=== PATIENT | male | born 1940 | race Asian ===

== ENCOUNTER 2021-08-20 02:13 | Outpatient (CLI) | payer MEDICARE, OTHER | END 2021-08-20 02:14 | disposition critical access hospital (66) | LOC: EMS 02:13 | DX: R10.10 Upper abdominal pain, unspecified (principal); R11.10 Vomiting, unspecified | CPT/HCPCS: A0425; A0429 ==

== ENCOUNTER 2021-08-20 02:29 | Inpatient (IN) | payer MEDICARE, OTHER ==
[2021-08-20] MEDS ORDERED: SODIUM CHLORIDE 0.9% 1,000 ML IV STA (02:36)
[2021-08-20] MEDS ORDERED: KETOROLAC 15 MG/ML VIAL IVP STA (02:36)
[2021-08-20] MEDS ORDERED: MORPHINE 10 MG/ML VIAL IVP STA (02:36)
[2021-08-20] MEDS ORDERED: ONDANSETRON 4 MG/2 ML VIAL IVP STA (02:36)
--- NOTE | 2021-08-20 02:38 | ED Physician Documentation ---
PD HPI ABD PAIN - Stated complaint Stated Complaint: ABD PAIN - History obtained from History obtained from: Patient, EMS - History of Present Illness Timing - onset: How many hours ago (about 8 hours ago (just after dinner)), Today Timing - duration: Hours (8) Timing - details: Gradual onset, Still present, Constant Quality: Cramping, Aching, Pain Location: All over / everywhere, Periumbilical Radiation: No: Lower back Improved by: Laying still. No: Vomiting Worsened by: Moving, Palpation Associated symptoms: Nausea, Vomiting (several times without noted blood.). No: Fever, Hematemesis, Diarrhea, Constipation (did not have BM since onset of symptoms), Dysuria Similar symptoms before: Has not had sx before Recently seen: Not recently seen Review of Systems Constitutional: denies: Fever, Chills Nose: denies: Rhinorrhea / runny nose, Congestion Throat: denies: Sore throat Cardiac: denies: Chest pain / pressure, Palpitations Respiratory: denies: Cough GI: reports: Abdominal Pain, Nausea, Vomiting. denies: Constipation, Diarrhea, Hematemesis : denies: Dysuria, Frequency Skin: denies: Rash, Lesions Musculoskeletal: denies: Neck pain, Back pain Neurologic: reports: Generalized weakness. denies: Near syncope, Altered mental status, Headache Endocrine: denies: Weight loss Immunocompromised: denies: Immunocompromised PD PAST MEDICAL HISTORY - Past Medical History Cardiovascular: Hypertension, High cholesterol, Atrial fibrillation Respiratory: None Neuro: None Endocrine/Autoimmune: None GI: GERD : None, Other (prior known kidney mass that has been biopsied at [facility] (?) with negative for neoplasm. f/u at [place] showed no increase in size. ) - Past Surgical History General: Cholecystectomy, Gastric surgery - Present Medications Home Medications: Ambulatory Orders Medication Instructions Recorded Confirmed Aspirin Chewable [[facility] Sandoval 81 mg PO DAILY 08/20/21 08/20/21 Aspirin] Atorvastatin [Lipitor] 20 mg PO DAILY 08/20/21 08/20/21 Lisinopril [Zestril] 20 mg PO DAILY 08/20/21 08/20/21 Pantoprazole [Protonix] 40 mg PO BID 08/20/21 08/20/21 - Allergies Allergies/Adverse Reactions: Allergies Allergy/AdvReac Type Severity Reaction Status Date / Time No Known Drug Allergies Allergy Verified 08/20/21 02:39 - Family History Family history: reports: Non contributory PD ED PE NORMAL - Vitals Vital signs reviewed: Yes - General General: Alert and oriented X 3, Well developed/nourished, Other (appears in mild discomfort at ER arrival. ) - HEENT HEENT: Pharynx benign - Neck Neck: Supple, no meningeal sign, No adenopathy - Cardiac Cardiac: RRR, No murmur - Respiratory Respiratory: No respiratory distress, Clear bilaterally - Abdomen Abdomen: Soft, Non distended, No organomegaly, Other (tender lower abd both left and right, without percussion nor rebound tenderness. ). No: Normal bowel sounds (decreased) - Male Male : Deferred - Rectal Rectal: Deferred - Back Back: No CVA TTP - Derm Derm: Normal color, Warm and dry - Extremities Extremities: No tenderness to palpate, No edema, No calf tenderness / cord - Neuro Neuro: Alert and oriented X 3, No motor deficit, Normal speech Results - Vitals Vitals: Vital Signs - 24 hr 08/20/21 08/20/21 08/20/21 02:36 02:38 03:30 Temperature 36.4 C L Heart Rate 62 63 62 Respiratory 16 16 16 Rate Blood Pressure 225/85 H 225/85 H 188/58 H O2 Saturation 97 96 94 08/20/21 08/20/21 03:55 04:16 Temperature Heart Rate 60 58 L Respiratory 15 15 Rate Blood Pressure 158/58 H O2 Saturation 97 98 Oxygen O2 Source Room air - Labs Labs: Laboratory Tests 08/20/21 08/20/21 08/20/21 02:39 02:39 02:45 WBC 9.2 RBC 4.81 Hgb 13.8 L Hct 44.2 MCV 91.9 MCH 28.7 MCHC 31.2 L RDW 13.9 Plt Count 261 MPV 9.2 Neut # (Auto) 8.6 H Lymph # (Auto) 0.3 L Pratt # (Auto) 0.2 Eos # (Auto) 0.0 Baso # (Auto) 0.0 Absolute Nucleated RBC 0.00 Nucleated RBC % 0.0 Sodium 142 Potassium 4.3 Chloride 101 Carbon Dioxide 27 Anion Gap 14.0 H BUN 25 H Creatinine 1.3 H Estimated GFR (MDRD) 53 L Glucose 208 H Lactic Acid 2.0 Calcium 10.2 Total Bilirubin 0.9 AST 29 ALT 23 Alkaline Phosphatase 85 Total Protein 8.3 H Albumin 4.9 Globulin 3.4 Albumin/Globulin Ratio 1.4 Lipase 32 Urine Color Urine Clarity Urine pH Ur Specific [place] Urine Protein Urine Glucose (UA) Urine Ketones Urine Occult Blood Urine Nitrite Urine Bilirubin Urine Urobilinogen Ur Leukocyte Esterase Urine RBC Urine WBC Ur Squamous Epith Cells Urine Bacteria Urine Casts Urine Mucus Ur Microscopic Review Urine Culture Comments 08/20/21 04:00 WBC RBC Hgb Hct MCV MCH MCHC RDW Plt Count MPV Neut # (Auto) Lymph # (Auto) Pratt # (Auto) Eos # (Auto) Baso # (Auto) Absolute Nucleated RBC Nucleated RBC % Sodium Potassium Chloride Carbon Dioxide Anion Gap BUN Creatinine Estimated GFR (MDRD) Glucose Lactic Acid Calcium Total Bilirubin AST ALT Alkaline Phosphatase Total Protein Albumin Globulin Albumin/Globulin Ratio Lipase Urine Color YELLOW Urine Clarity CLEAR Urine pH 6.0 Ur Specific [place] 1.025 Urine Protein 30 H Urine Glucose (UA) 100 H Urine Ketones TRACE Urine Occult Blood SMALL H Urine Nitrite NEGATIVE Urine Bilirubin NEGATIVE Urine Urobilinogen 0.2 (NORMAL) Ur Leukocyte Esterase NEGATIVE Urine RBC 0-5 Urine WBC 0-3 Ur Squamous Epith Cells RARE Squamous Urine Bacteria Rare Urine Casts 0-2 Hyaline Casts Urine Mucus Few Strands Ur Microscopic Review INDICATED Urine Culture Comments NOT INDICATED - Rads (name of study) abd/pelvic CT Radiology: Prelim report reviewed, See rad report PD MEDICAL DECISION MAKING - ED course Complexity details: reviewed results, re-evaluated patient, considered differential (mid to lower abd pain abruptly with vomiting. Consider bowel obstruction, diverticulitis, ischemic intestines, aortic process, etc. ), d/w patient Departure - Departure Disposition: ED Place in Observation Clinical Impression: Small bowel obstruction, High blood pressure Abdominal pain Qualifiers: Abdominal location: generalized Qualified Code(s): R10.84 - Generalized abdominal pain Vomiting Qualifiers: Vomiting type: unspecified Vomiting Intractability: non-intractable Nausea presence: with nausea Qualified Code(s): R11.2 - Nausea with vomiting, unspecified Condition: Stable Record reviewed to determine appropriate education?: Yes
[2021-08-20 02:45] LABS: BASOPHILS % (AUTO) 0.3 %; HCT - HEMATOCRIT 44.2 % (42.0-52.0); HGB - HEMOGLOBIN 13.8 g/dL (14.0-18.0); LYMPHOCYTES # (AUTO) 0.3 10^3/uL (1.5-3.5); LYMPHOCYTES % (AUTO) 3.2 %; MEAN CORPUSCULAR HEMOGLOBIN 28.7 pg (27.0-31.0); MEAN CORPUSCULAR HGB CONC 31.2 g/dL (32.0-36.0); MEAN CORPUSCULAR VOLUME 91.9 fL (80.0-94.0); MEAN PLATELET VOLUME 9.2 fL (7.4-11.4); MONOCYTES # (AUTO) 0.2 10^3/uL (0.0-1.0); MONOCYTES % (AUTO) 2.5 %; NEUTROPHILS # (AUTO) 8.6 10^3/uL (1.5-6.6); NEUTROPHILS % (AUTO) 93.6 %; PLT - PLATELET COUNT 261 10^3/uL (130-450); RED BLOOD COUNT 4.81 10^6/uL (4.70-6.10); RED CELL DISTRIBUTION WIDTH 13.9 % (12.0-15.0); WHITE BLOOD COUNT 9.2 x10^3/uL (4.8-10.8)
[2021-08-20] MEDS ORDERED: IOVERSOL 320 100 ML VIAL IVP ONE ×2 (02:47→03:25)
[2021-08-20 02:59] LABS: ALBUMIN 4.9 g/dL (3.2-5.5); ALBUMIN/GLOBULIN RATIO 1.4 (1.0-2.2); BILIRUBIN,TOTAL 0.9 mg/dL (0.2-1.0); CALCIUM 10.2 mg/dL (8.5-10.3); CREATININE 1.3 mg/dL (0.6-1.2); POTASSIUM 4.3 mmol/L (3.5-5.0); TOTAL PROTEIN 8.3 g/dL (6.7-8.2)
[2021-08-20 04:10] LABS: BILIRUBIN,URINE NEGATIVE (NEGATIVE); GLUCOSE, URINE (UA) 100 mg/dL (NEGATIVE); KETONES,URINE (UA) TRACE mg/dL (NEGATIVE); LEUKOCYTE ESTERASE, URINE NEGATIVE (NEGATIVE); NITRITE,URINE NEGATIVE (NEGATIVE); OCCULT BLOOD,URINE SMALL (NEGATIVE); PROTEIN,URINE 30 mg/dL (NEGATIVE); UROBILINOGEN,URINE 0.2 (NORMAL) E.U./dL (NORMAL)
[2021-08-20 04:11] LABS: CLARITY,URINE CLEAR (CLEAR)
[2021-08-20 04:16] LABS: BACTERIA,URINE Rare /HPF (None Seen); CASTS, URINE 0-2 Hyaline Casts /LPF; MUCUS,URINE Few Strands; RBC,URINE 0-5 /HPF (0-5); SQUAMOUS EPITHELIAL CELL,UR RARE Squamous (<= Few); WBC,URINE 0-3 /HPF (0-3)
[2021-08-20 05:28] LABS: CORONAVIRUS 229E-RESP PCR NOT DETECTED; CORONAVIRUS HKU1-RESP PCR NOT DETECTED; CORONAVIRUS NL63-RESP PCR NOT DETECTED; CORONAVIRUS OC43-RESP PCR NOT DETECTED; HUMAN METAPNEUMOVIRUS NOT DETECTED; INFLUENZA A- RESP PCR PANEL NOT DETECTED; RHINOVIRUS/ENTEROVIRUS NOT DETECTED; SARS-CoV-2 -RESP PCR PANEL NOT DETECTED
[2021-08-20 05:29] LABS: B. PARAPERTUSSIS- RESP PCR PAN NOT DETECTED; B. PERTUSSIS- RESP PCR PANEL NOT DETECTED; C. PNEUMONIAE- RESP PCR PANEL NOT DETECTED; INFLUENZA B - RESP PCR PANEL NOT DETECTED; M. PNEUMONIAE- RESP PCR PANEL NOT DETECTED; PARAINFLUENZA VIRUS 1 NOT DETECTED; PARAINFLUENZA VIRUS 2 NOT DETECTED; PARAINFLUENZA VIRUS 3 NOT DETECTED; PARAINFLUENZA VIRUS 4 NOT DETECTED; RSV- RESP PCR PANEL NOT DETECTED
--- NOTE | 2021-08-20 05:41 | HISTORY & PHYSICAL EXAMINATION ---
Chief Complaint - Chief Complaint Chief Complaint: abdominal pain History of Present Illness - Admitted From Admitted From:: [facility] ED - History Obtained From Records Reviewed: yes History obtained from: patient - History of Present Illness HPI Comment/Other: Patient is an 81-year-old male who presented to the ED today with abdominal pain. This started after dinner yesterday. He had nausea and vomiting at onset however his abdominal pain currently has subsided. In the ED work-up included a CT abdomen pelvis which showed small bowel obstruction. She was presented for admission for further management. At bedside he is resting comfortably. He denies chest pain, dyspnea, abdominal pain, nausea, vomiting, fever or chills. Dr. Bernadine Lockwood with general surgery was consulted by the ED physician. Patient recently moved to [facility] from [place]. He resides at [facility]. He moved to be closer to his son and his [id number]. History - Past Medical History Cardiovascular: reports: Hypertension, High cholesterol, Coronary artery disea se, Atrial fibrillation Respiratory: reports: None Neuro: reports: None Endocrine/Autoimmune: reports: None GI: reports: GERD : reports: None, Other (prior known kidney mass that has been biopsied at [facility] (?) with negative for neoplasm. f/u at [place] showed no increase in size. ) Musculoskeletal: reports: Osteoarthritis MRSA Hx?: No - Past Surgical History General: reports: Cholecystectomy, Gastric surgery - Family & Social History Family History Comment/Other: His mother had diabetes and in her 50s. His sister had 1 kidney resected. Reason unknown. Social History Notes: Patient does not consume alcohol, tobacco products or recreational substances. - POLST Patient has POLST: No POLST Status: Full Code Meds/Allgy - Home Medications Home Medications: Ambulatory Orders Medication Instructions Recorded Confirmed Aspirin Chewable [St Sandoval 81 mg PO DAILY 08/20/21 08/20/21 Aspirin] Atorvastatin [Lipitor] 20 mg PO DAILY 08/20/21 08/20/21 Lisinopril [Zestril] 20 mg PO DAILY 08/20/21 08/20/21 Pantoprazole [Protonix] 40 mg PO BID 08/20/21 08/20/21 - Allergies Allergies/Adverse Reactions: Allergies Allergy/AdvReac Type Severity Reaction Status Date / Time No Known Drug Allergies Allergy Verified 08/20/21 02:39 Review of Systems - Constitutional Constitutional: denies: Fatigue, Fever, Chills - Eyes Eyes: denies: Pain - Ears, Nose & Throat Ears, Nose & Throat: denies: Ear pain, Sore throat - Cardiovascular Cariovascular: denies: Irregular heart rate, Chest pain, Edema, Lightheadedness, Syncope - Gastrointestinal Gastrointestinal: reports: Abdominal pain, Abdominal distention, Nausea, Vomiting. denies: Diarrhea - Genitourinary Genitourinary: denies: Dysuria, Frequency, Urgency - Musculoskeletal Musculoskeletal: denies: Muscle pain, Back pain, Muscle aches - Integumentary Integumentary: denies: Rash, Pruritis, Lesions - Neurological Neurological: denies: General weakness, Focal weakness, Headache - Psychiatric Psychiatric: denies: Depression, Anxiety - Endocrine Endocrine: denies: Polyuria, Polydypsia - Hematologic/Lymphatic Hematologic/Lymphatic: denies: Anemia, Bruising Prior Level of Functionality: Patient is independent of activities of daily living. He resides at [facility]. Exam - Vital Signs Vital Signs: Vital Signs x48h Temp Pulse Resp BP Pulse Ox 08/20/21 05:04 36.6 C 08/20/21 04:53 51 L 16 167/59 H 99 08/20/21 04:16 58 L 15 98 08/20/21 03:55 60 15 158/58 H 97 08/20/21 03:30 62 16 188/58 H 94 08/20/21 02:38 63 16 225/85 H 96 08/20/21 02:36 36.4 C L 62 16 225/85 H 97 - Physical Exam General Appearance: positive: No acute distress, Alert Eyes Bilateral: positive: PERRL, EOMI ENT: positive: No signs of dehydration Neck: positive: No JVD, Trachea midline Respiratory: positive: Chest non-tender, No respiratory distress, Breath sounds nml. negative: Wheezes, Rales, Rhonchi Cardiovascular: positive: Irregularly irregular Abdomen: positive: Non-tender, No distention, Other (Decreased bowel sounds). negative: Guarding, Rebound Skin: positive: Color nml, No rash, Warm, Dry Extremities: positive: Non-tender, Full ROM, Nml appearance, No pedal edema Neurologic/Psychiatric: positive: Oriented x3, Mood/affect nml Conclusion/Plan - Problem List (1) Small bowel obstruction Conclusion/Plan: CT scan of the abdomen pelvis showed high-grade small bowel obstruction. The majority of the small bowel was dilated measuring up to 3.8 cm Patient currently appears comfortable. We will make him n.p.o. IV hydration with normal saline at 100 mL/h. Dr. Bernadine Lockwood was contacted and consulted by the ED physician. (2) Hypertension Conclusion/Plan: On lisinopril 20 mg p.o. daily. Will continue. (3) Renal mass, left Conclusion/Plan: CT Scan also showed a 3.3 x 2.3 cm mass within the central aspect of the left kidney. Patient reports that this has been worked up/biopsied in the past and was told it was benign. (4) Atrial fibrillation Conclusion/Plan: Not on any rate controlling medication. Patient is intermittently bradycardia but asymptomatic. He reports that he used to be on Eliquis which was discontinued. Reason unknown. He is on a baby aspirin daily. (5) GERD (gastroesophageal reflux disease) Conclusion/Plan: On Protonix 40 mg p.o. twice daily. (6) CATIA (acute kidney injury) Conclusion/Plan: Mild. Creatinine 1.3 and estimated GFR 53. Patient receiving gentle IV hydration with normal saline at 100 mL/h. - Lab Results Fish Bones: 08/20/21 02:39 08/20/21 02:39 Core Measures - Anticipated LOS I expect patient to be DC'd or transferred within 96 hours.: Yes - DVT/VTE - Prophylaxis VTE/DVT Device ordered at admit?: Yes VTE/DVT Prophylaxis med ordered at admit?: Yes
[2021-08-20] MEDS: SODIUM CHLORIDE 0.9% 1,000 ML IV SCH ×2 (06:39→16:25)
[2021-08-20] MEDS: SODIUM CHLORIDE FLUSH 0.9% 10 ML SYRINGE IVP SCH ×2 (09:00→17:55)
[2021-08-20] MEDS: HEPARIN 5,000 UNIT/ML VIAL SUBQ SCH ×2 (09:30→22:05)
[2021-08-20] MEDS: hydrALAZINE INJ 20 MG/ML VIAL IVP SCH ×3 (09:49→22:07)
--- NOTE | 2021-08-20 10:28 | CT Report ---
PROCEDURE: Abdomen/Pelvis W INDICATIONS: LLQ Abdominal pain, diverticulitis suspected CONTRAST: IV CONTRAST: Optiray 320 ml: 100 PO CONTRAST: *NO PO CONTRAST TECHNIQUE: After the administration of intravenous contrast, 5 mm thick sections acquired from the diaphragms to the symphysis. 5 mm thick coronal and sagittal reformats were acquired. For radiation dose reducti on, the following was used: automated exposure control, adjustment of mA and/or kV according to daxa ent size. COMPARISON: None. FINDINGS: Image quality: Excellent. ABDOMEN: Lung bases: Lung bases are clear. Heart size is normal. There is mild coronary artery calcificatio n. Small hiatal hernia. Solid organs: Liver and spleen are normal in size and enhancement. Gallbladder is surgically absent Biliary system is dilated. Common bile duct measures up to 13 mm in diameter. No common bile duct stones. Pancreas enhances normally. Pancreatic duct is at upper limit normal measuring 2.3 mm. No ad renal nodules. There is a 2.8 x 3.2 x 2.4 cm solid mass in the lateral cortex of the left kidney, suspicious for a r enal cell carcinoma. Kidneys demonstrate normal size and enhancement, without hydronephrosis. Peritoneum and bowel: Small bowel loops are dilated and filled with fluid with multiple air-fluid lev els, measuring up to 5 cm. There is a transitional point in the mid abdomen, likely involving the il eum. The CT findings are consistent with high-grade small bowel perfusion. There is a small amount of free fluid. No free air. Nodes and vessels: No retroperitoneal or mesenteric adenopathy by size criteria. There is mild dista l aortic ectasia and 2.7 cm in diameter. Moderate vascular calcifications. Miscellaneous: No ventral hernias. PELVIS: Genitourinary: Bladder wall thickness is normal. Miscellaneous: No inguinal adenopathy. There is a small left inguinal hernia. Bones: No suspicious bony lesions. No vertebral body compression fractures. IMPRESSION: 1. High-grade small bowel obstruction. There is a transitional point in the mid abdomen, likely invol ving the eating. A small amount of free fluid is present. No free air. 2. A 2.8 x 3.2 x 2.4 cm solid mass in the lateral cortex of the left kidney, suspicious for renal tierra l carcinoma. 3. Cholecystectomy. There is mild intrahepatic biliary dilation and dilated common bile duct. No obst ructive biliary stones. Please correlate with serum bilirubin. There is no significant discrepancy with the preliminary interpretation. Reviewed by: Cheerlle Carr MD on 08/20/2021 10:26 AM PDT Approved by: Cherelle Carr MD on 08/20/2021 10:26 AM PDT Station ID: [id number]
--- NOTE | 2021-08-20 11:19 | PHARMACY PROGRESS NOTE ---
- Best Possible Medication History Admit Date and Time: 08/20/21 0530 Processed by: Nursing Medication History completed: Yes As the person ultimately responsible for medication therapy, providers are able to order a medication from an existing home medication list in [facility] via the "Reconcile Routine" prior to Confirmation of that medication by physician support coordinator. Such practice is discouraged except when the physician, in their clinical judgment, deems that a medical need exists for a medication without regard to previous use.
--- NOTE | 2021-08-20 12:26 | XRAY Report ---
PROCEDURE: Chest for Line Placement INDICATIONS: NG TUBE TECHNIQUE: One view of the chest was acquired. COMPARISON: None. FINDINGS: SUPPORT DEVICES: An enteric tube is seen, which appears looped within the esophagus. Sternotomy wires are well aligned. LUNGS/PLEURA: No focal consolidation, pleural effusion or space-occupying pneumothorax. MEDIASTINUM: The cardiac silhouette is within normal limits. Mild atheromatous change of the aorta. BONES/SOFT TISSUES: No acute abnormality. IMPRESSION: 1.Abnormal positioning of the patient's enteric tube. Findings were discussed with the ordering physician at the time of dictation. Reviewed by: Jason Barone MD on 08/20/2021 12:25 PM PDT Approved by: Jason Barone MD on 08/20/2021 12:25 PM PDT Station ID: [id number]
--- NOTE | 2021-08-20 12:44 | XRAY Report ---
PROCEDURE: Chest for Line Placement INDICATIONS: NGT placement TECHNIQUE: One view of the chest was acquired. COMPARISON: 08/20/2021 at 1138 hours.. FINDINGS: Surgical changes and devices: NG tube projects past GE junction with tip and side-port projecting ove r the proximal stomach.. Lungs and pleura: No pleural effusions or pneumothorax. Lungs are clear. Mediastinum: Mediastinal contours appear normal. Heart size is normal. Bones and chest wall: No suspicious bony lesions. Overlying soft tissues appear unremarkable. IMPRESSION: NG tube projects across the GE junction. Reviewed by: Temitope Abreu MD, PhD on 08/20/2021 11:42 AM T[place] Approved by: Temitope Abreu MD, PhD on 08/20/2021 11:42 AM TERR[place] Station ID: [id number]
--- NOTE | 2021-08-20 17:24 | CONSULTATION NOTE ---
Surgery Consult - Admit Date Hospital Admission Date: 08/20/21 - Consult Date Consult Date: 08/20/21 Requesting Provider: Dr. Christopher George - Chief Complaint Chief Complaint: Abdominal pain and nausea - Home Meds/Allergies Home Medications: Patient History Medication Instructions Recorded Confirmed Aspirin Chewable [St Sandoval 81 mg PO DAILY 08/20/21 08/20/21 Aspirin] Atorvastatin [Lipitor] 20 mg PO DAILY 08/20/21 08/20/21 Lisinopril [Zestril] 20 mg PO DAILY 08/20/21 08/20/21 Pantoprazole Sodium 20 mg PO BID 08/20/21 08/20/21 Allergies/Adverse Reactions: Allergies Allergy/AdvReac Type Severity Reaction Status Date / Time No Known Drug Allergies Allergy Verified 08/20/21 02:39 - Vital Signs Vital Signs: Last Vital Signs Temp 36.8 C 08/20/21 09:00 Pulse 53 L 08/20/21 16:43 Resp 18 08/20/21 10:04 BP 149/54 H 08/20/21 16:43 Pulse Ox 98 08/20/21 09:00 Intake & Output: Intake & Output 08/17/21 08/18/21 08/19/21 08/20/21 23:59 23:59 23:59 23:59 Intake Total 1977 Output Total 650 Balance 1327 - Lab Results Result Diagrams: 08/20/21 02:39 08/20/21 02:39 - Consultation Note Consultation Note: A pleasant 81-year-old gentleman who developed acute abdominal pain last evening after eating supper. He says he is never had a pain similar to this in the past. He has a history of having had a cholecystectomy and a gastric surgery. He is also aware that he has a left kidney mass that has been worked up and was found to be benign. He lives at [facility] but he is essentially independent. He recently moved here from [place] to be closer to family.At the time of my consultation, he is lying comfortably in his bed at about 8:00 this morning. He denies any abdominal pain. He denied any nausea. He said that he felt comfortable. After I saw him the first time, he apparently developed nausea and had emesis of about [address] Moody romano placed an NG tube and it produced 1100 cc of fluid. Now Roberto reports he is feeling just fine. He has been up walking around in the halls with the nursing consultant. He denies any pain. He definitely does not want any surgery. He is not had any flatus or bowel movement. He tells me that he would like to eat. Physical exam: Very healthy and pleasant 81-year-old gentleman who appears much younger than his stated age. He is in no distress. He is alert and oriented x3. HEENT: Normocephalic and atraumatic, pupils equal round and reactive to light and accommodation with anicteric sclera. Lungs: Clear bilaterally Heart: Regular rate and rhythm Abdomen: Soft, completely nontender to palpation. Hyperactive bowel tones. A well-healed midline incision is present which the patient believes he got at the time of his cholecystectomy.No palpable defect. There is no tenderness over this incision. Extremities: Warm and well perfused and without edema. CT scan of the abdomen and pelvis done in the ER at the time of admission shows a high-grade small bowel obstruction with a transition point possibly in the right mid abdomen where there is a clockwise rotation of the bowel. There is some minimal free fluid and no evidence of free air.The bowel is dilated proximal to this location and decompressed distally. 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 I spoke with the patient this morning and told him that we could wait and see how he felt but that I thought this would be a bowel obstruction that required surgical intervention. He was adamant that he did not wish to have any surgery and wanted to wait as long as possible to see if it would resolve on its own. I returned this afternoon after having had the NG tube placed and had the same discussion with him. He again stated that he would very much like to avoid any surgery if possible. Since he is not having any pain and there is no evidence of acidosis, we have some time to work with. I expressed to him that I still think he will need surgical intervention but we can wait at least 1 more night and see.He understands that I will be leaving town and so my partners Dr. Figueredo or Dr. Vick will be seeing him tomorrow. They are both excellent surgeons and will take wonderful care of him.
[2021-08-20] MEDS: ONDANSETRON 4 MG/2 ML VIAL IVP PRN (22:07)
[2021-08-21] MEDS: SODIUM CHLORIDE FLUSH 0.9% 10 ML SYRINGE IVP SCH ×3 (01:52→17:59)
[2021-08-21] MEDS: SODIUM CHLORIDE 0.9% 1,000 ML IV SCH ×3 (02:48→17:59)
[2021-08-21] MEDS: hydrALAZINE INJ 20 MG/ML VIAL IVP SCH ×2 (03:51→10:40)
[2021-08-21 05:53] LABS: BASOPHILS % (AUTO) 0.3 %; EOSINOPHILS # (AUTO) 0.1 10^3/uL (0.0-0.7); EOSINOPHILS % (AUTO) 1.2 %; HCT - HEMATOCRIT 39.6 % (42.0-52.0); HGB - HEMOGLOBIN 12.3 g/dL (14.0-18.0); LYMPHOCYTES # (AUTO) 0.9 10^3/uL (1.5-3.5); LYMPHOCYTES % (AUTO) 8.1 %; MEAN CORPUSCULAR HEMOGLOBIN 28.5 pg (27.0-31.0); MEAN CORPUSCULAR HGB CONC 31.1 g/dL (32.0-36.0); MEAN CORPUSCULAR VOLUME 91.9 fL (80.0-94.0); MONOCYTES # (AUTO) 0.8 10^3/uL (0.0-1.0); MONOCYTES % (AUTO) 7.4 %; NEUTROPHILS % (AUTO) 82.6 %; PLT - PLATELET COUNT 228 10^3/uL (130-450); RED BLOOD COUNT 4.31 10^6/uL (4.70-6.10); RED CELL DISTRIBUTION WIDTH 14.5 % (12.0-15.0); WHITE BLOOD COUNT 10.9 x10^3/uL (4.8-10.8)
[2021-08-21] MEDS: ACETAMINOPHEN 325 MG TABLET PO PRN (05:57)
[2021-08-21 06:02] LABS: CALCIUM 9.1 mg/dL (8.5-10.3); CREATININE 1.2 mg/dL (0.6-1.2); POTASSIUM 3.9 mmol/L (3.5-5.0)
[2021-08-21] MEDS: SODIUM CHLORIDE FLUSH 0.9% 10 ML SYRINGE IVP PRN (06:05)
[2021-08-21] MEDS: ONDANSETRON 4 MG/2 ML VIAL IVP PRN (06:05)
--- NOTE | 2021-08-21 07:39 | PROVIDER PROGRESS NOTE ---
Subjective - Prog Note Date Prog Note Date: 08/21/21 - Subjective Subjective: Still feels nauseous and has epigastric pain. He vomited this morning when trying to take Tylenol. Current Medications - Current Medications Current Medications: Active Medications Acetaminophen (Acetaminophen 325 Mg Tablet) 650 mg PO Q4HR PRN PRN Reason: Pain 1 to 4 Last Admin: 08/21/21 05:57 Dose: 650 mg Documented by: Heparin Sodium (Porcine) (Heparin 5,000 Unit/Ml Vial) 5,000 unit SUBQ BID [facility] Last Admin: 08/21/21 08:01 Dose: 5,000 unit Documented by: Sodium Chloride (Normal Saline 0.9%) 1,000 mls @ 100 mls/hr IV .Q10H [facility] Last Admin: 08/21/21 02:48 Dose: 100 mls/hr Documented by: Morphine Sulfate (Morphine 2 Mg/Ml Carpuject) 2 mg IVP Q2HR PRN PRN Reason: PAIN Ondansetron HCl (Ondansetron 4 Mg/2 Ml Vial) 4 mg IVP Q6HR PRN PRN Reason: Nausea / Vomiting Last Admin: 08/21/21 06:05 Dose: 4 mg Documented by: Sodium Chloride (Sodium Chloride Flush 0.9% 10 Ml Syringe) 10 ml IVP PRN PRN PRN Reason: NEEDED PER PROVIDER ORDERS Last Admin: 08/21/21 06:05 Dose: 10 ml Documented by: Sodium Chloride (Sodium Chloride Flush 0.9% 10 Ml Syringe) 10 ml IVP 0100,0900,1700 [facility] Last Admin: 08/21/21 03:52 Dose: 10 ml Documented by: Aspirin Chewable [[place] Aspirin] 81 mg PO DAILY 08/20/21 Atorvastatin [Lipitor] 20 mg PO DAILY 08/20/21 Lisinopril [Zestril] 20 mg PO DAILY 08/20/21 Pantoprazole Sodium 20 mg PO BID 08/20/21 Objective - Vital Signs/Intake & Output Reviewed Vital Signs: Yes Vital Signs: Vital Signs x48h Temp Pulse Resp BP BP Pulse Ox 08/21/21 03:51 147/63 H 08/21/21 03:49 36.2 C L 62 16 147/63 H 95 08/20/21 23:47 36.7 C 66 18 135/59 H 95 Intake & Output: Intake & Output 08/18/21 08/19/21 08/20/21 08/21/21 23:59 23:59 23:59 23:59 Intake Total 1977 1110 Output Total 2325 400 Balance -348 710 - Objective General Appearance: positive: Alert, Mild distress Eyes Bilateral: positive: Normal inspection, Conjunctivae nml ENT: positive: ENT inspection nml, Other (NG tube in place.) Neck: positive: Nml inspection Respiratory: positive: No respiratory distress. negative: Wheezes, Rales Cardiovascular: positive: Irregularly irregular, Systolic murmur. negative: No murmur Abdomen: positive: No distention, Tenderness (Epigastric region.), Abnml bowel sounds (Hypoactive.). negative: Non-tender Skin: positive: Warm, Dry Extremities: positive: No pedal edema Neurologic/Psychiatric: positive: Motor nml. negative: Disoriented to person, Disoriented to place - Lab Results Fish Bones: 08/21/21 05:27 08/21/21 05:27 Other Labs: Lab Results x24hrs 08/21/21 08/21/21 08/21/21 Range/Units 05:47 05:27 05:27 WBC 10.9 H (4.8-10.8) x10^3/uL RBC 4.31 L (4.70-6.10) 10^6/uL Hgb 12.3 L (14.0-18.0) g/dL Hct 39.6 L (42.0-52.0) % MCV 91.9 (80.0-94.0) fL MCH 28.5 (27.0-31.0) pg MCHC 31.1 L (32.0-36.0) g/dL RDW 14.5 (12.0-15.0) % Plt Count 228 (130-450) 10^3/uL MPV 10.0 (7.4-11.4) fL Neut # (Auto) 9.0 H (1.5-6.6) 10^3/uL Lymph # (Auto) 0.9 L (1.5-3.5) 10^3/uL [place] # (Auto) 0.8 (0.0-1.0) 10^3/uL Eos # (Auto) 0.1 (0.0-0.7) 10^3/uL Baso # (Auto) 0.0 (0.0-0.1) 10^3/uL Absolute Nucleated RBC 0.00 x10^3/uL Nucleated RBC % 0.0 /100WBC Sodium 142 (135-145) mmol/L Potassium 3.9 (3.5-5.0) mmol/L Chloride 104 (101-111) mmol/L Carbon Dioxide 24 (21-32) mmol/L Anion Gap 14.0 H (6-13) BUN 26 H (6-20) mg/dL Creatinine 1.2 (0.6-1.2) mg/dL Estimated GFR (MDRD) 58 L (>89) Glucose 142 H (70-100) mg/dL POC Whole Bld Glucose 130 H (70 - 100) mg/dL Calcium 9.1 (8.5-10.3) mg/dL 08/21/21 08/20/21 08/20/21 Range/Units 00:45 17:40 11:14 WBC (4.8-10.8) x10^3/uL RBC (4.70-6.10) 10^6/uL Hgb (14.0-18.0) g/dL Hct (42.0-52.0) % MCV (80.0-94.0) fL MCH (27.0-31.0) pg MCHC (32.0-36.0) g/dL RDW (12.0-15.0) % Plt Count (130-450) 10^3/uL MPV (7.4-11.4) fL Neut # (Auto) (1.5-6.6) 10^3/uL Lymph # (Auto) (1.5-3.5) 10^3/uL [place] # (Auto) (0.0-1.0) 10^3/uL Eos # (Auto) (0.0-0.7) 10^3/uL Baso # (Auto) (0.0-0.1) 10^3/uL Absolute Nucleated RBC x10^3/uL Nucleated RBC % /100WBC Sodium (135-145) mmol/L Potassium (3.5-5.0) mmol/L Chloride (101-111) mmol/L Carbon Dioxide (21-32) mmol/L Anion Gap (6-13) BUN (6-20) mg/dL Creatinine (0.6-1.2) mg/dL Estimated GFR (MDRD) (>89) Glucose (70-100) mg/dL POC Whole Bld Glucose 129 H 121 H 93 (70 - 100) mg/dL Calcium (8.5-10.3) mg/dL ABX Reporting Has patient been on IV antibiotics over the past 48 hours?: No Assessment/Plan - Problem List (1) Small bowel obstruction Impression: This is ongoing. Continues to have output from the NG tube and had another episode of emesis this morning. White count is slightly increased today. We will discuss with general surgery regarding management as it appears he will likely need surgical intervention. We will keep him n.p.o. and continue IV flui ds. Pain control with morphine as needed. Zofran as needed for nausea. Appreciate general surgery input. (2) Atrial fibrillation Impression: Stable and rate controlled. He is on aspirin but not anticoagulation which she states was discontinued previously. He is also not on any rate control medications. We will continue to monitor. (3) Hypertension Impression: He is hypertensive with systolics in the 130s. We are holding his home lisinopril due to his bowel obstruction. We will continue to monitor and if n ecessary we will administer IV antihypertensives. (4) Renal mass, left Impression: He has a left renal mass and reportedly has been worked up/biopsy in the past and he was told it was benign. (5) Cardiac murmur Impression: A systolic murmur was noted on exam. We will order an echocardiogram for further evaluation. (6) GERD (gastroesophageal reflux disease) Impression: Stable. Continue IV Protonix given he is n.p.o.
[2021-08-21] MEDS: HEPARIN 5,000 UNIT/ML VIAL SUBQ SCH ×2 (08:01→21:00)
--- NOTE | 2021-08-21 13:40 | PROVIDER PROGRESS NOTE ---
Assessment/Plan - Problem List (1) Abdominal pain Qualifiers: Abdominal location: generalized Qualified Code(s): R10.84 - Generalized abdominal pain Assessment/Plan: Patient has persistent SBO not improved after more than [address] findings suggest a transition point in the ileum. Patient advised to have exploratory laparotomy and lysis of adhesions. He is aware that small bowel resection may be required if non-viable small bowel found at the point of obstruction. He understands and agrees to have surgery under general anesthesia. He has signed consent. (2) Cardiac murmur Assessment/Plan: Echocardiogram done and shows no significant valvular disease with good EF of 65-70%, Chronic atrial fibrillation only on aspirin. - Current Meds Current Meds: Current Medications Generic Name Dose Route Start Last Admin Trade Name Freq PRN Reason Stop Dose Admin Acetaminophen 650 mg 08/20/21 05:30 08/21/21 05:57 Acetaminophen 325 Mg Tablet PO 650 mg Q4HR PRN Administration Pain 1 to 4 Heparin Sodium (Porcine) 5,000 unit 08/20/21 09:00 08/21/21 08:01 Heparin 5,000 Unit/Ml Vial SUBQ 5,000 unit BID [facility] Administration Sodium Chloride 1,000 mls @ 100 mls/hr 08/20/21 06:00 08/21/21 13:07 Normal Saline 0.9% IV 100 mls/hr .Q10H [facility] Administration Ondansetron HCl 4 mg 08/20/21 05:30 08/21/21 06:05 Ondansetron 4 Mg/2 Ml Vial IVP 4 mg Q6HR PRN Administration Nausea / Vomiting Sodium Chloride 10 ml 08/20/21 05:30 08/21/21 06:05 Sodium Chloride Flush 0.9% 10 Ml Syringe IVP 10 ml PRN PRN Administration NEEDED PER PROVIDER ORDERS Sodium Chloride 10 ml 08/20/21 09:00 08/21/21 03:52 Sodium Chloride Flush 0.9% 10 Ml Syringe IVP 10 ml 0100,0900,1700 [facility] Administration - Lab Result Fish Bone Diagrams: 08/21/21 05:27 08/21/21 05:27 - Diagnostic Imaging Results Diagnostic Imaging Results: Final report reviewed (CT shows high grade obstruction in distal small bowel, likely ileum. Echocardiogram shows no significant valvular disease. EF 65-70%.) - Additional Planning Condition/Complexity: Stable Plan Discussed with:: Patient Time Spent: 31-60 minutes Subjective - Subjective Patient Reports: No Complaints Objective Vital Signs: Vital Signs - 24 hr 08/20/21 08/20/21 08/20/21 16:30 16:32 16:38 Temperature Heart Rate Heart Rate [ Brachial] Heart Rate [ 50 L 52 L Radial] Respiratory Rate Blood Pressure 186/67 H Blood Pressure 186/67 H 181/58 H [Left Brachial artery] O2 Saturation 08/20/21 08/20/21 08/20/21 16:43 19:00 21:41 Temperature 37.2 C 37.4 C Heart Rate Heart Rate [ 58 L 63 Brachial] Heart Rate [ 53 L Radial] Respiratory 16 20 Rate Blood Pressure Blood Pressure 149/54 H 169/72 H 150/50 H [Left Brachial artery] O2 Saturation 97 95 08/20/21 08/20/21 08/20/21 22:10 22:15 23:47 Temperature 36.7 C Heart Rate Heart Rate [ 71 69 66 Brachial] Heart Rate [ 74 Radial] Respiratory 98 H 18 Rate Blood Pressure Blood Pressure 159/55 H 139/60 H 135/59 H [Left Brachial artery] O2 Saturation 95 08/21/21 08/21/21 08/21/21 03:49 03:51 07:35 Temperature 36.2 C L 37 C Heart Rate 59 L Heart Rate [ 62 Brachial] Heart Rate [ Radial] Respiratory 16 16 Rate Blood Pressure 147/63 H Blood Pressure 147/63 H [Left Brachial artery] O2 Saturation 95 97 08/21/21 08/21/21 08/21/21 08:00 10:40 10:45 Temperature 37.0 C Heart Rate Heart Rate [ 59 L 60 51 L Brachial] Heart Rate [ Radial] Respiratory 16 16 16 Rate Blood Pressure 173/57 H Blood Pressure 159/59 H 173/57 H 140/52 H [Left Brachial artery] O2 Saturation 95 08/21/21 08/21/21 08/21/21 10:50 10:55 11:09 Temperature Heart Rate Heart Rate [ 49 L 49 L 60 Brachial] Heart Rate [ Radial] Respiratory 16 16 16 Rate Blood Pressure Blood Pressure 141/42 H 130/46 L 137/48 H [Left Brachial artery] O2 Saturation Oxygen O2 Source Room air I&O (Last 24 Hrs): Intake and Output Totals x24h 08/19/21 08/20/2108/21/21 23:59 23:59 23:59 Intake Total 1976 2109 Output Total 232 400 Balance -348 1710 General: Alert, No acute distress Abdomen: No tenderness, Other (NG draining feculent material, output significant.) - Results Results: Laboratory Results WBC 10.9 x10^3/uL (4.8-10.8) H 08/21/21 05:27 RBC 4.31 10^6/uL (4.70-6.10) L 08/21/21 05:27 Hgb 12.3 g/dL (14.0-18.0) L 08/21/21 05:27 Hct 39.6 % (42.0-52.0) L 08/21/21 05:27 MCV 91.9 fL (80.0-94.0) 08/21/21 05:27 MCH 28.5 pg (27.0-31.0) 08/21/21 05:27 MCHC 31.1 g/dL (32.0-36.0) L 08/21/21 05:27 RDW 14.5 % (12.0-15.0) 08/21/21 05:27 Plt Count 228 10^3/uL (130-450) 08/21/21 05:27 MPV 10.0 fL (7.4-11.4) 08/21/21 05:27 Neut # (Auto) 9.0 10^3/uL (1.5-6.6) H 08/21/21 05:27 Lymph # (Auto) 0.9 10^3/uL (1.5-3.5) L 08/21/21 05:27 [place] # (Auto) 0.8 10^3/uL (0.0-1.0) 08/21/21 05:27 Eos # (Auto) 0.1 10^3/uL (0.0-0.7) 08/21/21 05:27 Baso # (Auto) 0.0 10^3/uL (0.0-0.1) 08/21/21 05:27 Absolute Nucleated RBC 0.00 x10^3/uL 08/21/21 05:27 Nucleated RBC % 0.0 /100WBC 08/21/21 05:27 Sodium 142 mmol/L (135-145) 08/21/21 05:27 Potassium 3.9 mmol/L (3.5-5.0) 08/21/21 05:27 Chloride 104 mmol/L (101-111) 08/21/21 05:27 Carbon Dioxide 24 mmol/L (21-32) 08/21/21 05:27 Anion Gap 14.0 (6-13) H 08/21/21 05:27 BUN 26 mg/dL (6-20) H 08/21/21 05:27 Creatinine 1.2 mg/dL (0.6-1.2) 08/21/21 05:27 Estimated GFR (MDRD) 58 (>89) L 08/21/21 05:27 Glucose 142 mg/dL (70-100) H 08/21/21 05:27 POC Whole Bld Glucose 107 mg/dL (70 - 100) H 08/21/21 11:46 Lactic Acid 2.0 mmol/L (0.5-2.2) 08/20/21 02:45 Calcium 9.1 mg/dL (8.5-10.3) 08/21/21 05:27 Total Bilirubin 0.9 mg/dL (0.2-1.0) 08/20/21 02:39 AST 29 IU/L (10-42) 08/20/21 02:39 ALT 23 IU/L (10-60) 08/20/21 02:39 Alkaline Phosphatase 85 IU/L (42-121) 08/20/21 02:39 Total Protein 8.3 g/dL (6.7-8.2) H 08/20/21 02:39 Albumin 4.9 g/dL (3.2-5.5) 08/20/21 02:39 Globulin 3.4 g/dL (2.1-4.2) 08/20/21 02:39 Albumin/Globulin Ratio 1.4 (1.0-2.2) 08/20/21 02:39 Lipase 32 U/L (22-51) 08/20/21 02:39 Urine Color YELLOW 08/20/21 04:00 Urine Clarity CLEAR (CLEAR) 08/20/21 04:00 Urine pH 6.0 PH (5.0-7.5) 08/20/21 04:00 Ur Specific [place] 1.025 (1.002-1.030) 08/20/21 04:00 Urine Protein 30 mg/dL (NEGATIVE) H 08/20/21 04:00 Urine Glucose (UA) 100 mg/dL (NEGATIVE) H 08/20/21 04:00 Urine Ketones TRACE mg/dL (NEGATIVE) 08/20/21 04:00 Urine Occult Blood SMALL (NEGATIVE) H 08/20/21 04:00 Urine Nitrite NEGATIVE (NEGATIVE) 08/20/21 04:00 Urine Bilirubin NEGATIVE (NEGATIVE) 08/20/21 04:00 Urine Urobilinogen 0.2 (NORMAL) E.U./dL (NORMAL) 08/20/21 04:00 Ur Leukocyte Esterase NEGATIVE (NEGATIVE) 08/20/21 04:00 Urine RBC 0-5 /HPF (0-5) 08/20/21 04:00 Urine WBC 0-3 /HPF (0-3) 08/20/21 04:00 Ur Squamous Epith Cells RARE Squamous (<= Few) 08/20/21 04:00 Urine Bacteria Rare /HPF (None Seen) 08/20/21 04:00 Urine Casts 0-2 Hyaline Casts /LPF 08/20/21 04:00 Urine Mucus Few Strands 08/20/21 04:00 Ur Microscopic Review INDICATED 08/20/21 04:00 Urine Culture Comments NOT INDICATED 08/20/21 04:00 Nasal Adenovirus (PCR) NOT DETECTED 08/20/21 04:18 Nasal B. parapertussis DNA (PCR) NOT DETECTED 08/20/21 04:18 Nasal Coronavir 229E PCR NOT DETECTED 08/20/21 04:18 Nasal Coronavir HKU1 PCR NOT DETECTED 08/20/21 04:18 Nasal Coronavir NL63 PCR NOT DETECTED 08/20/21 04:18 Nasal Coronavir OC43 PCR NOT DETECTED 08/20/21 04:18 Nasal Enterovir/Rhinovir PCR NOT DETECTED 08/20/21 04:18 Nasal Influenza B PCR NOT DETECTED 08/20/21 04:18 Nasal Influenza A PCR NOT DETECTED 08/20/21 04:18 Nasal Parainfluen 1 PCR NOT DETECTED 08/20/21 04:18 Nasal Parainfluen 2 PCR NOT DETECTED 08/20/21 04:18 Nasal Parainfluen 3 PCR NOT DETECTED 08/20/21 04:18 Nasal Parainfluen 4 PCR NOT DETECTED 08/20/21 04:18 Nasal RSV (PCR) NOT DETECTED 08/20/21 04:18 Nasal B.pertussis DNA PCR NOT DETECTED 08/20/21 04:18 Nasal C.pneumoniae (PCR) NOT DETECTED 08/20/21 04:18 [place]an Human Metapneumo PCR NOT DETECTED 08/20/21 04:18 Nasal M.pneumoniae (PCR) NOT DETECTED 08/20/21 04:18 Nasal SARS-CoV-2 (PCR) NOT DETECTED 08/20/21 04:18 ABX Reporting Has patient been on IV antibiotics over the past 48 hours?: No
--- NOTE | 2021-08-21 13:46 | ANESTHESIA ---
Pre-Anesthesia VS, & Labs - Diagnosis small bowel obstruction - Procedure Ex lap, possible bowel resection Vital Signs: Temp Pulse Resp BP Pulse Ox 37.0 C 60 16 137/48 H 95 08/21/21 08:00 08/21/21 11:09 08/21/21 11:09 08/21/21 11:09 08/21/21 08:00 Height: 5 ft 6 in Weight (kg): 78.5 kg Body Mass Index: 27.9 BMI Classification: Overweight - NPO >8 hours - Lab Results Current Lab Results: Laboratory Tests 08/21/21 11:46: POC Whole Bld Glucose 107 H 08/21/21 05:47: POC Whole Bld Glucose 130 H 08/21/21 05:27: Sodium 142, Potassium 3.9, Chloride 104, Carbon Dioxide 24, Anion Gap 14.0 H, BUN 26 H, Creatinine 1.2, Estimated GFR (MDRD) 58 L, Glucose 142 H, Calcium 9.1 08/21/21 05:27: WBC 10.9 H, RBC 4.31 L, Hgb 12.3 L, Hct 39.6 L, MCV 91.9, MCH 28.5, MCHC 31.1 L, RDW 14.5, Plt Count 228, MPV 10.0, Neut # (Auto) 9.0 H, Lymph # (Auto) 0.9 L, [place] # (Auto) 0.8, Eos # (Auto) 0.1, Baso # (Auto) 0.0, Absolute Nucleated RBC 0.00, Nucleated RBC % 0.0 08/21/21 00:45: POC Whole Bld Glucose 129 H 08/20/21 17:40: POC Whole Bld Glucose 121 H 08/20/21 11:14: POC Whole Bld Glucose 93 08/20/21 02:45: Lactic Acid 2.0 08/20/21 02:39: Sodium 142, Potassium 4.3, Chloride 101, Carbon Dioxide 27, Anion Gap 14.0 H, BUN 25 H, Creatinine 1.3 H, Estimated GFR (MDRD) 53 L, Glucose 208 H, Calcium 10.2, Total Bilirubin 0.9, AST 29, ALT 23, Alkaline Phosphatase 85, Total Protein 8.3 H, Albumin 4.9, Globulin 3.4, Albumin/Globulin Ratio 1.4, Lipase 32 08/20/21 02:39: WBC 9.2, RBC 4.81, Hgb 13.8 L, Hct 44.2, MCV 91.9, MCH 28.7, MCHC 31.2 L, RDW 13.9, Plt Count 261, MPV 9.2, Neut # (Auto) 8.6 H, Lymph # (Auto) 0.3 L, [place] # (Auto) 0.2, Eos # (Auto) 0.0, Baso # (Auto) 0.0, Absolute Nucleated RBC 0.00, Nucleated RBC % 0.0 Lab results reviewed: Yes Fish Bones: 08/21/21 05:27 08/21/21 05:27 Home Medications and Allergies Home Medications: Ambulatory Orders Aspirin Chewable [[facility] [place] Aspirin] 81 mg PO DAILY 08/20/21 Atorvastatin [Lipitor] 20 mg PO DAILY 08/20/21 Lisinopril [Zestril] 20 mg PO DAILY 08/20/21 Pantoprazole Sodium 20 mg PO BID 08/20/21 Active Medications Acetaminophen (Acetaminophen 325 Mg Tablet) 650 mg PO Q4HR PRN PRN Reason: Pain 1 to 4 Last Admin: 08/21/21 05:57 Dose: 650 mg Documented by: Heparin Sodium (Porcine) (Heparin 5,000 Unit/Ml Vial) 5,000 unit SUBQ BID [facility] Last Admin: 08/21/21 08:01 Dose: 5,000 unit Documented by: Sodium Chloride (Normal Saline 0.9%) 1,000 mls @ 100 mls/hr IV .Q10H [facility] Last Admin: 08/21/21 13:07 Dose: 100 mls/hr Documented by: Morphine Sulfate (Morphine 2 Mg/Ml Carpuject) 2 mg IVP Q2HR PRN PRN Reason: PAIN Ondansetron HCl (Ondansetron 4 Mg/2 Ml Vial) 4 mg IVP Q6HR PRN PRN Reason: Nausea / Vomiting Last Admin: 08/21/21 06:05 Dose: 4 mg Documented by: Pantoprazole Sodium (Pantoprazole 40 Mg Vial) 40 mg IVP QDAC [facility] Sodium Chloride (Sodium Chloride Flush 0.9% 10 Ml Syringe) 10 ml IVP PRN PRN PRN Reason: NEEDED PER PROVIDER ORDERS Last Admin: 08/21/21 06:05 Dose: 10 ml Documented by: Sodium Chloride (Sodium Chloride Flush 0.9% 10 Ml Syringe) 10 ml IVP 0100,0900,1700 [facility] Last Admin: 08/21/21 03:52 Dose: 10 ml Documented by: Aspirin Chewable [[facility] [place] Aspirin] 81 mg PO DAILY 08/20/21 Atorvastatin [Lipitor] 20 mg PO DAILY 08/20/21 Lisinopril [Zestril] 20 mg PO DAILY 08/20/21 Pantoprazole Sodium 20 mg PO BID 08/20/21 Allergies/Adverse Reactions: Allergies Allergy/AdvReac Type Severity Reaction Status Date / Time No Known Drug Allergies Allergy Verified 08/20/21 02:39 Anes History & Medical History - Anesthetic History Anesthesia Complications: reports: No previous complications Family history of Anesthesia Complications: Denies Family history of Malignant Hyperthermia: Denies - Medical History Cardiovascular: reports: Hypertension, High cholesterol, Coronary artery disease, Atrial fibrillation Pulmonary: reports: None Gastrointestinal: reports: GERD Urinary: reports: None, Other Neuro: reports: None Musculoskeletal: reports: Osteoarthritis Endocrine/Autoimmune: reports: None Smoking Status: Never smoker - Surgical History General: reports: Cholecystectomy, Gastric surgery Results - Echo Results Echo Results: Report reviewed Exam General: Alert, Oriented x3, Cooperative, No acute distress Dental: Poor dentition Mouth Openin Fingerbreadth Neck Mobility: Normal Mallampati classification: II Respiratory: Lungs clear, Normal breath sounds, No respiratory distress, No accessory muscle use Cardiovascular: Normal S1, Normal S2, No murmurs Plan Anesthesia Type: General, Transverse Abdominis Plane (TAP) Block Regional Block: Per Surgeon's request for Post Op pain control Consent for Procedure(s) Verified and Reviewed: Yes Code Status: Attempt Resuscitation ASA classification: 3-Severe systemic disease Is this case an emergency?: No
[2021-08-21] MEDS ORDERED: MORPHINE 2 MG/ML CARPUJECT IVP PRN (13:48)
[2021-08-21] MEDS ORDERED: ePHEDrine 50 MG/ML VIAL IVP PRN (13:48)
[2021-08-21] MEDS ORDERED: HYDROmorphone 0.5 MG/0.5 ML SYRINGE IVP PRN (13:48)
[2021-08-21] MEDS ORDERED: fentaNYL 100 MCG/2 ML VIAL IVP PRN (13:48)
[2021-08-21] MEDS ORDERED: METOCLOPRAMIDE 10 MG/2 ML VIAL IVP PRN (13:48)
[2021-08-21] MEDS ORDERED: ATROPINE ABBOJECT 1 MG/10 ML SYRINGE IVP PRN (13:48)
[2021-08-21] MEDS ORDERED: ONDANSETRON 4 MG/2 ML VIAL IVP PRN (13:48)
[2021-08-21] MEDS ORDERED: NALOXONE 0.4 MG/ML VIAL IVP PRN (13:48)
[2021-08-21] MEDS ORDERED: LACTATED RINGERS 1,000 ML IV SCH (14:00)
[2021-08-21] MEDS ORDERED: PROPOFOL 200 MG/20 ML VIAL IVP ONE (14:04)
[2021-08-21] MEDS ORDERED: ROPIVACAINE 0.5% PF 20 ML AMPULE ONE ×2 (14:04→14:50)
[2021-08-21] MEDS ORDERED: fentaNYL 100 MCG/2 ML VIAL ONE (14:04)
[2021-08-21] MEDS ORDERED: KETOROLAC 30 MG/ML VIAL ONE (14:05)
[2021-08-21] MEDS ORDERED: ROCURONIUM 50 MG/5 ML VIAL ONE (14:05)
[2021-08-21] MEDS ORDERED: DEXAMETHASONE 4 MG/ML VIAL ONE (14:05)
[2021-08-21] MEDS ORDERED: ONDANSETRON 4 MG/2 ML VIAL ONE (14:05)
[2021-08-21] MEDS ORDERED: SODIUM CHLORIDE 0.9% 10 ML VIAL IVP ONE (14:09)
[2021-08-21] MEDS ORDERED: PHENYLEPHRINE 10 MG/ML VIAL ONE (14:32)
[2021-08-21] MEDS ORDERED: metroNIDAZOLE 500 MG/100 ML 500 MG/100 ML BAG IV SCH (14:40)
[2021-08-21] MEDS ORDERED: CIPROFLOXACIN 400 MG/200 ML 400 MG/200 ML BAG IV SCH (14:40)
[2021-08-21] MEDS ORDERED: CIPROFLOXACIN 400 MG/200 ML 400 MG/200 ML BAG IV ONE (14:42)
[2021-08-21] MEDS ORDERED: metroNIDAZOLE 500 MG/100 ML 500 MG/100 ML BAG ONE (14:42)
[2021-08-21] MEDS ORDERED: LACTATED RINGERS 1,000 ML IV ONE (15:44)
[2021-08-21] MEDS ORDERED: SODIUM CHLORIDE FLUSH 0.9% 10 ML SYRINGE IVP PRN (15:44)
[2021-08-21] MEDS ORDERED: ACETAMINOPHEN 1,000 MG/100 ML 100 ML IV PRN (15:46)
--- NOTE | 2021-08-21 15:52 | OPERATIVE REPORT ---
Operative Report - General Admit Date: 08/20/21 Procedure Date: 08/21/21 Planned Procedure: Exploratory laparotomy Pre-Op Diagnosis: SBO Procedure Performed: exploratory laparotomy, lysis of adhesions Post Op Diagnosis: SBO - Procedure Note Primary Surgeon: Pb Vick MD Anesthesia Provider: Juan Alberto RAMIREZ Anesthesia Technique: General ET tube, Other (FRANCESCA block post procedure) Pathology: none IV Fluids (mL): 600 Estimated Blood Loss (mL): 20 Urine Output (mL): 300 Findings: Adhesive band to small bowel from RUQ causing a tight constricting band across another segment of small bowel. Complications: none - Other Other Information/Narrative: The patient was taken to the operating room where general anesthesia was induced, patient was intubated, the abdomen was prepped with ChloraPrep and sterilely draped in the usual fashion. Scalpel was used to make a midline incision along the line of the previous scar and dissection with the Metzenbaum scissors was taken down to peritoneum. The fascia was then divided with cautery the length of the skin incision. There was straw-colored ascitic fluid evac uated from the abdomen with suction. The adhesive band was identified from the right upper quadrant to the small bowel and this was divided with cautery. The small bowel was then run from the ligament of Treitz to the ileocecal valve and bowel contents were manipulated into the colon through the area where the small bowel was obstructed. All small bowel was viable. The abdomen was then irrigat ed well with 2 L of warm saline and aspirated dry. Midline fascia was closed with a running double-stranded 0 PDS. Subcutaneous tissues were approximated with interrupted 3-0 Vicryl. Skin was closed with clips. An Aquacel dressing was applied. Patient then had a tap block placed by JAMES and was extubated and taken to recovery in stable condition.
--- NOTE | 2021-08-21 15:58 | ANESTHESIA POST OP EVALUATION ---
Anesthesia Post Eval - Post Anesthesia Eval Vitals: Last Vital Signs Temp 37.0 C 08/21/21 08:00 Pulse 60 08/21/21 11:09 Resp 16 08/21/21 11:09 BP 137/48 H 08/21/21 11:09 Pulse Ox 95 08/21/21 08:00 CV Function Including HR & BP: Stable Pain Control: Satisfactory Nausea & Vomiting: Negative Mental Status: Baseline Respiratory Status: Airway Patent Hydration Status: Satisfactory Anesthesia Complications: None
[2021-08-22] MEDS: SODIUM CHLORIDE 0.9% 1,000 ML IV SCH (03:48)
[2021-08-22] MEDS: SODIUM CHLORIDE FLUSH 0.9% 10 ML SYRINGE IVP SCH ×6 (05:52→16:04)
[2021-08-22] MEDS: PANTOPRAZOLE 40 MG VIAL IVP SCH (06:15)
[2021-08-22 07:47] LABS: BASOPHILS % (AUTO) 0.1 %; EOSINOPHILS % (AUTO) 0.1 %; HCT - HEMATOCRIT 38.3 % (42.0-52.0); HGB - HEMOGLOBIN 11.8 g/dL (14.0-18.0); LYMPHOCYTES # (AUTO) 0.7 10^3/uL (1.5-3.5); LYMPHOCYTES % (AUTO) 8.7 %; MEAN CORPUSCULAR HEMOGLOBIN 29.3 pg (27.0-31.0); MEAN CORPUSCULAR HGB CONC 30.8 g/dL (32.0-36.0); MEAN PLATELET VOLUME 10.1 fL (7.4-11.4); MONOCYTES # (AUTO) 0.7 10^3/uL (0.0-1.0); MONOCYTES % (AUTO) 9.9 %; NEUTROPHILS % (AUTO) 80.9 %; PLT - PLATELET COUNT 197 10^3/uL (130-450); RED BLOOD COUNT 4.03 10^6/uL (4.70-6.10); RED CELL DISTRIBUTION WIDTH 14.4 % (12.0-15.0); WHITE BLOOD COUNT 7.5 x10^3/uL (4.8-10.8)
[2021-08-22 07:49] LABS: DIFFERENTIAL COMMENT MANUAL=AUTO DIFF
[2021-08-22 07:50] LABS: CALCIUM 8.7 mg/dL (8.5-10.3); CREATININE 1.3 mg/dL (0.6-1.2); POTASSIUM 4.1 mmol/L (3.5-5.0)
[2021-08-22] MEDS: MORPHINE 2 MG/ML CARPUJECT IVP PRN ×2 (08:50→12:18)
[2021-08-22] MEDS: HEPARIN 5,000 UNIT/ML VIAL SUBQ SCH ×2 (08:50→21:22)
--- NOTE | 2021-08-22 09:40 | PROVIDER PROGRESS NOTE ---
Subjective - General Admit Date: 08/20/21 Procedure Date: 08/21/21 Post Op Days: 1 Procedure Performed: Ex lap, lysis of adhesions - Review of Systems Wound/Incisions: positive: Dressing dry and intact General: positive: No symptoms Gastrointestinal: negative: Nausea, Flatus Objective - Patient Data Reviewed Vital Signs: Yes Vital Signs: Vital Signs x48h Temp Pulse Resp BP BP Pulse Ox 08/22/21 09:29 36.8 C 54 L 18 186/63 H 185/59 H 98 08/22/21 05:46 36.8 C 55 L 18 161/69 H 99 Weight: Weight 08/20/21 08/21/21 08/22/21 23:59 23:59 23:59 Weight (kg) 78.5 kg 78.5 kg Intake & Output: Intake and Output Totals x24h 08/20/21 08/21/21 08/22/21 23:59 23:59 23:59 Intake Total 1977 2596.667 981.667 Output Total 2325 850 200 Balance -348 1746.667 781.667 - Lab Results Lab Results: 08/22/21 07:15 08/22/21 07:15 Other Lab Results: Lab Results x24hrs 08/22/21 08/22/21 08/22/21 Range/Units 07:19 07:15 07:15 WBC 7.5 (4.8-10.8) x10^3/uL RBC 4.03 L (4.70-6.10) 10^6/uL Hgb 11.8 L (14.0-18.0) g/dL Hct 38.3 L (42.0-52.0) % MCV 95.0 H (80.0-94.0) fL MCH 29.3 (27.0-31.0) pg MCHC 30.8 L (32.0-36.0) g/dL RDW 14.4 (12.0-15.0) % Plt Count 197 (130-450) 10^3/uL MPV 10.1 (7.4-11.4) fL Neut # (Auto) 6.0 (1.5-6.6) 10^3/uL Lymph # (Auto) 0.7 L (1.5-3.5) 10^3/uL [place] # (Auto) 0.7 (0.0-1.0) 10^3/uL Eos # (Auto) 0.0 (0.0-0.7) 10^3/uL Baso # (Auto) 0.0 (0.0-0.1) 10^3/uL Absolute Nucleated RBC 0.00 x10^3/uL Band Neuts % (Manual) Not Reportable Abnorm Lymph % (Manual) Not Reportable Nucleated RBC % 0.0 /100WBC Neutrophils # (Manual) Not Reportable Lymphocytes # (Manual) Not Reportable Monocytes # (Manual) Not Reportable Eosinophils # (Manual) Not Reportable Basophils # (Manual) Not Reportable Differential Comment MANUAL=AUTO DIFF Sodium 145 (135-145) mmol/L Potassium 4.1 (3.5-5.0) mmol/L Chloride 112 H (101-111) mmol/L Carbon Dioxide 24 (21-32) mmol/L Anion Gap 9.0 (6-13) BUN 27 H (6-20) mg/dL Creatinine 1.3 H (0.6-1.2) mg/dL Estimated GFR (MDRD) 53 L (>89) Glucose 99 (70-100) mg/dL POC Whole Bld Glucose 75 (70 - 100) mg/dL Calcium 8.7 (8.5-10.3) mg/dL 08/22/21 08/21/21 08/21/21 Range/Units 05:31 23:47 17:41 WBC (4.8-10.8) x10^3/uL RBC (4.70-6.10) 10^6/uL Hgb (14.0-18.0) g/dL Hct (42.0-52.0) % MCV (80.0-94.0) fL MCH (27.0-31.0) pg MCHC (32.0-36.0) g/dL RDW (12.0-15.0) % Plt Count (130-450) 10^3/uL MPV (7.4-11.4) fL Neut # (Auto) (1.5-6.6) 10^3/uL Lymph # (Auto) (1.5-3.5) 10^3/uL [place] # (Auto) (0.0-1.0) 10^3/uL Eos # (Auto) (0.0-0.7) 10^3/uL Baso # (Auto) (0.0-0.1) 10^3/uL Absolute Nucleated RBC x10^3/uL Band Neuts % (Manual) Abnorm Lymph % (Manual) Nucleated RBC % /100WBC Neutrophils # (Manual) Lymphocytes # (Manual) Monocytes # (Manual) Eosinophils # (Manual) Basophils # (Manual) Differential Comment Sodium (135-145) mmol/L Potassium (3.5-5.0) mmol/L Chloride (101-111) mmol/L Carbon Dioxide (21-32) mmol/L Anion Gap (6-13) BUN (6-20) mg/dL Creatinine (0.6-1.2) mg/dL Estimated GFR (MDRD) (>89) Glucose (70-100) mg/dL POC Whole Bld Glucose 91 106 H 104 H (70 - 100) mg/dL Calcium (8.5-10.3) mg/dL 08/21/21 Range/Units 11:46 WBC (4.8-10.8) x10^3/uL RBC (4.70-6.10) 10^6/uL Hgb (14.0-18.0) g/dL Hct (42.0-52.0) % MCV (80.0-94.0) fL MCH (27.0-31.0) pg MCHC (32.0-36.0) g/dL RDW (12.0-15.0) % Plt Count (130-450) 10^3/uL MPV (7.4-11.4) fL Neut # (Auto) (1.5-6.6) 10^3/uL Lymph # (Auto) (1.5-3.5) 10^3/uL [place] # (Auto) (0.0-1.0) 10^3/uL Eos # (Auto) (0.0-0.7) 10^3/uL Baso # (Auto) (0.0-0.1) 10^3/uL Absolute Nucleated RBC x10^3/uL Band Neuts % (Manual) Abnorm Lymph % (Manual) Nucleated RBC % /100WBC Neutrophils # (Manual) Lymphocytes # (Manual) Monocytes # (Manual) Eosinophils # (Manual) Basophils # (Manual) Differential Comment Sodium (135-145) mmol/L Potassium (3.5-5.0) mmol/L Chloride (101-111) mmol/L Carbon Dioxide (21-32) mmol/L Anion Gap (6-13) BUN (6-20) mg/dL Creatinine (0.6-1.2) mg/dL Estimated GFR (MDRD) (>89) Glucose (70-100) mg/dL POC Whole Bld Glucose 107 H (70 - 100) mg/dL Calcium (8.5-10.3) mg/dL - Current Medications Current Medications: Current Medications Generic Name Dose Route Start Last Admin Trade Name Freq PRN Reason Stop Dose Admin Acetaminophen 650 mg 08/20/21 05:30 08/21/21 05:57 Acetaminophen 325 Mg Tablet PO 650 mg Q4HR PRN Administration Pain 1 to 4 Heparin Sodium (Porcine) 5,000 unit 08/20/21 09:00 08/22/21 08:50 Heparin 5,000 Unit/Ml Vial SUBQ 5,000 unit BID OSKAR Administration Sodium Chloride 1,000 mls @ 100 mls/hr 08/20/21 06:00 08/22/21 03:48 Normal Saline 0.9% IV 100 mls/hr .Q10H OSKAR Administration Morphine Sulfate 2 mg 08/21/21 11:30 08/22/21 08:50 Morphine 2 Mg/Ml Carpuject IVP 2 mg Q2HR PRN Administration PAIN Ondansetron HCl 4 mg 08/20/21 05:30 08/21/21 06:05 Ondansetron 4 Mg/2 Ml Vial IVP 4 mg Q6HR PRN Administration Nausea / Vomiting Pantoprazole Sodium 40 mg 08/22/21 07:00 08/22/21 06:15 Pantoprazole 40 Mg Vial IVP 40 mg QDAC OSKAR Administration Sodium Chloride 10 ml 08/20/21 05:30 08/21/21 06:05 Sodium Chloride Flush 0.9% 10 Ml Syringe IVP 10 ml PRN PRN Administration NEEDED PER PROVIDER ORDERS Sodium Chloride 10 ml 08/20/21 09:00 08/22/21 05:52 Sodium Chloride Flush 0.9% 10 Ml Syringe IVP Not Given 0100,0900,1700 OSKAR Sodium Chloride 10 ml 08/21/21 17:00 08/22/21 05:52 Sodium Chloride Flush 0.9% 10 Ml Syringe IVP Not Given 0100,0900,1700 OSKAR - Physical Exam Wound/Incisions: positive: Dressing dry and intact General Appearance: positive: No acute distress Abdomen: positive: No distention Impression/Plan - Problem List Problem List: NG output scant- NG d/c'd Capellan out today- urine output adequate. No flatus yet- will hold on po for now.
[2021-08-22] MEDS: LACTATED RINGERS 1,000 ML IV SCH ×3 (09:59→22:58)
[2021-08-22] MEDS ORDERED: hydrALAZINE INJ 20 MG/ML VIAL IVP ONE (10:06)
--- NOTE | 2021-08-22 10:33 | PROVIDER PROGRESS NOTE ---
Subjective - Prog Note Date Prog Note Date: 08/22/21 - Subjective Subjective: He had a very small bowel movement this morning. Complains of mild abdominal pain. He believes he may have had a little bit of emesis this morning. He has been ambulating in the room. Current Medications - Current Medications Current Medications: Active Medications Acetaminophen (Acetaminophen 325 Mg Tablet) 650 mg PO Q4HR PRN PRN Reason: Pain 1 to 4 Last Admin: 08/21/21 05:57 Dose: 650 mg Documented by: Heparin Sodium (Porcine) (Heparin 5,000 Unit/Ml Vial) 5,000 unit SUBQ BID [facility] Last Admin: 08/22/21 08:50 Dose: 5,000 unit Documented by: Acetaminophen (Ofirmev) 100 mls @ 400 mls/hr IV Q6HR PRN PRN Reason: PAIN Stop: 08/23/21 15:45 Lactated Ringer's (Lr) 1,000 mls @ 125 mls/hr IV .Q8H [facility] Last Admin: 08/22/21 09:59 Dose: 125 mls/hr Documented by: Morphine Sulfate (Morphine 2 Mg/Ml Carpuject) 2 mg IVP Q2HR PRN PRN Reason: PAIN Last Admin: 08/22/21 08:50 Dose: 2 mg Documented by: Ondansetron HCl (Ondansetron 4 Mg/2 Ml Vial) 4 mg IVP Q6HR PRN PRN Reason: Nausea / Vomiting Last Admin: 08/21/21 06:05 Dose: 4 mg Documented by: Pantoprazole Sodium (Pantoprazole 40 Mg Vial) 40 mg IVP QDAC [facility] Last Admin: 08/22/21 06:15 Dose: 40 mg Documented by: Sodium Chloride (Sodium Chloride Flush 0.9% 10 Ml Syringe) 10 ml IVP PRN PRN PRN Reason: NEEDED PER PROVIDER ORDERS Last Admin: 08/21/21 06:05 Dose: 10 ml Documented by: Sodium Chloride (Sodium Chloride Flush 0.9% 10 Ml Syringe) 10 ml IVP 0100,0900,1700 [facility] Last Admin: 08/22/21 09:43 Dose: Not Given Documented by: Sodium Chloride (Sodium Chloride Flush 0.9% 10 Ml Syringe) 10 ml IVP 0100,0900,1700 [facility] Last Admin: 08/22/21 09:44 Dose: Not Given Documented by: Sodium Chloride (Sodium Chloride Flush 0.9% 10 Ml Syringe) 10 ml IVP PRN PRN PRN Reason: NEEDED PER PROVIDER ORDERS Aspirin Chewable [[place] Aspirin] 81 mg PO DAILY 08/20/21 Atorvastatin [Lipitor] 20 mg PO DAILY 08/20/21 Lisinopril [Zestril] 20 mg PO DAILY 08/20/21 Pantoprazole Sodium 20 mg PO BID 08/20/21 Objective - Vital Signs/Intake & Output Reviewed Vital Signs: Yes Vital Signs: Vital Signs x48h Temp Pulse Resp BP BP BP Pulse Ox 08/22/21 10:30 54 L 175/67 H 08/22/21 10:25 54 L 190/68 H 08/22/21 10:24 190/68 H 08/22/21 09:29 36.8 C 54 L 18 186/63 H 185/59 H 98 08/22/21 05:46 36.8 C 55 L 18 161/69 H 99 Intake & Output: Intake & Output 08/19/21 08/20/21 08/21/21 08/22/21 23:59 23:59 23:59 23:59 Intake Total 1977 2596.667 1601.667 Output Total 2325 850 350 Balance -348 6761.952 6893.667 - Objective General Appearance: positive: No acute distress, Alert Eyes Bilateral: positive: Normal inspection, Conjunctivae nml ENT: positive: ENT inspection nml Neck: positive: Nml inspection Respiratory: positive: No respiratory distress. negative: Wheezes, Rales Cardiovascular: positive: Irregularly irregular, Systolic murmur. negative: No murmur Abdomen: positive: Nml bowel sounds, No distention, Tenderness (Mild tendern ess.), Other (Dressing in place.) Skin: positive: Warm, Dry - Lab Results Fish Bones: 08/22/21 07:15 08/22/21 07:15 Other Labs: Lab Results x24hrs 08/22/21 08/22/21 08/22/21 Range/Units 07:19 07:15 07:15 WBC 7.5 (4.8-10.8) x10^3/uL RBC 4.03 L (4.70-6.10) 10^6/uL Hgb 11.8 L (14.0-18.0) g/dL Hct 38.3 L (42.0-52.0) % MCV 95.0 H (80.0-94.0) fL MCH 29.3 (27.0-31.0) pg MCHC 30.8 L (32.0-36.0) g/dL RDW 14.4 (12.0-15.0) % Plt Count 197 (130-450) 10^3/uL MPV 10.1 (7.4-11.4) fL Neut # (Auto) 6.0 (1.5-6.6) 10^3/uL Lymph # (Auto) 0.7 L (1.5-3.5) 10^3/uL [place] # (Auto) 0.7 (0.0-1.0) 10^3/uL Eos # (Auto) 0.0 (0.0-0.7) 10^3/uL Baso # (Auto) 0.0 (0.0-0.1) 10^3/uL Absolute Nucleated RBC 0.00 x10^3/uL Band Neuts % (Manual) Not Reportable Abnorm Lymph % (Manual) Not Reportable Nucleated RBC % 0.0 /100WBC Neutrophils # (Manual) Not Reportable Lymphocytes # (Manual) Not Reportable Monocytes # (Manual) Not Reportable Eosinophils # (Manual) Not Reportable Basophils # (Manual) Not Reportable Differential Comment MANUAL=AUTO DIFF Sodium 145 (135-145) mmol/L Potassium 4.1 (3.5-5.0) mmol/L Chloride 112 H (101-111) mmol/L Carbon Dioxide 24 (21-32) mmol/L Anion Gap 9.0 (6-13) BUN 27 H (6-20) mg/dL Creatinine 1.3 H (0.6-1.2) mg/dL Estimated GFR (MDRD) 53 L (>89) Glucose 99 (70-100) mg/dL POC Whole Bld Glucose 75 (70 - 100) mg/dL Calcium 8.7 (8.5-10.3) mg/dL 08/22/21 08/21/21 08/21/21 Range/Units 05:31 23:47 17:41 WBC (4.8-10.8) x10^3/uL RBC (4.70-6.10) 10^6/uL Hgb (14.0-18.0) g/dL Hct (42.0-52.0) % MCV (80.0-94.0) fL MCH (27.0-31.0) pg MCHC (32.0-36.0) g/dL RDW (12.0-15.0) % Plt Count (130-450) 10^3/uL MPV (7.4-11.4) fL Neut # (Auto) (1.5-6.6) 10^3/uL Lymph # (Auto) (1.5-3.5) 10^3/uL [place] # (Auto) (0.0-1.0) 10^3/uL Eos # (Auto) (0.0-0.7) 10^3/uL Baso # (Auto) (0.0-0.1) 10^3/uL Absolute Nucleated RBC x10^3/uL Band Neuts % (Manual) Abnorm Lymph % (Manual) Nucleated RBC % /100WBC Neutrophils # (Manual) Lymphocytes # (Manual) Monocytes # (Manual) Eosinophils # (Manual) Basophils # (Manual) Differential Comment Sodium (135-145) mmol/L Potassium (3.5-5.0) mmol/L Chloride (101-111) mmol/L Carbon Dioxide (21-32) mmol/L Anion Gap (6-13) BUN (6-20) mg/dL Creatinine (0.6-1.2) mg/dL Estimated GFR (MDRD) (>89) Glucose (70-100) mg/dL POC Whole Bld Glucose 91 106 H 104 H (70 - 100) mg/dL Calcium (8.5-10.3) mg/dL 08/21/21 Range/Units 11:46 WBC (4.8-10.8) x10^3/uL RBC (4.70-6.10) 10^6/uL Hgb (14.0-18.0) g/dL Hct (42.0-52.0) % MCV (80.0-94.0) fL MCH (27.0-31.0) pg MCHC (32.0-36.0) g/dL RDW (12.0-15.0) % Plt Count (130-450) 10^3/uL MPV (7.4-11.4) fL Neut # (Auto) (1.5-6.6) 10^3/uL Lymph # (Auto) (1.5-3.5) 10^3/uL [place] # (Auto) (0.0-1.0) 10^3/uL Eos # (Auto) (0.0-0.7) 10^3/uL Baso # (Auto) (0.0-0.1) 10^3/uL Absolute Nucleated RBC x10^3/uL Band Neuts % (Manual) Abnorm Lymph % (Manual) Nucleated RBC % /100WBC Neutrophils # (Manual) Lymphocytes # (Manual) Monocytes # (Manual) Eosinophils # (Manual) Basophils # (Manual) Differential Comment Sodium (135-145) mmol/L Potassium (3.5-5.0) mmol/L Chloride (101-111) mmol/L Carbon Dioxide (21-32) mmol/L Anion Gap (6-13) BUN (6-20) mg/dL Creatinine (0.6-1.2) mg/dL Estimated GFR (MDRD) (>89) Glucose (70-100) mg/dL POC Whole Bld Glucose 107 H (70 - 100) mg/dL Calcium (8.5-10.3) mg/dL Assessment/Plan - Problem List (1) Small bowel obstruction Impression: He is now postop day 1 of an exploratory laparotomy with lysis of adhesions. He remains n.p.o. at this time but the NG tube has been DC'd by general surgery. He still has no flatus so p.o. is being held. We will continue pain control with morphine as needed as well as Zofran as needed for nausea. We will look to hopefully start a clear liquid diet later on today or tomorrow morning before advancing further. (2) Atrial fibrillation Impression: Stable and rate controlled. He is on aspirin but not anticoagulation which he states was discontinued previously. He is also not on any rate control medications. We will resume aspirin once taking p.o. (3) Hypertension Impression: He is not hypertensive with systolics in the 180s. We will start him on IV hydralazine and resume his home lisinopril once he is taking p.o. (4) Renal mass, left Impression: He has a left renal mass and reportedly has been worked up/biopsy in the past and he was told it was benign. (5) Cardiac murmur Impression: Preliminary echocardiogram report revealed no significant valvular disease. (6) GERD (gastroesophageal reflux disease) Impression: Stable. Continue IV Protonix given he is n.p.o.
[2021-08-22] MEDS: lisinopriL 20 MG TABLET PO SCH (15:01)
[2021-08-22] MEDS: ONDANSETRON 4 MG/2 ML VIAL IVP PRN (16:21)
[2021-08-22] MEDS: ACETAMINOPHEN 325 MG TABLET PO PRN (16:21)
[2021-08-23] MEDS: SODIUM CHLORIDE FLUSH 0.9% 10 ML SYRINGE IVP SCH ×9 (00:45→23:50)
[2021-08-23] MEDS: lisinopriL 20 MG TABLET PO SCH (04:12)
[2021-08-23] MEDS: LACTATED RINGERS 1,000 ML IV SCH ×3 (05:42→21:26)
[2021-08-23] MEDS: MORPHINE 2 MG/ML CARPUJECT IVP PRN ×3 (05:54→18:36)
[2021-08-23] MEDS: PANTOPRAZOLE 40 MG VIAL IVP SCH (05:56)
[2021-08-23 06:45] LABS: BASOPHILS % (AUTO) 0.6 %; EOSINOPHILS # (AUTO) 0.1 10^3/uL (0.0-0.7); EOSINOPHILS % (AUTO) 0.8 %; HCT - HEMATOCRIT 39.8 % (42.0-52.0); HGB - HEMOGLOBIN 11.9 g/dL (14.0-18.0); LYMPHOCYTES # (AUTO) 0.8 10^3/uL (1.5-3.5); LYMPHOCYTES % (AUTO) 11.3 %; MEAN CORPUSCULAR HEMOGLOBIN 28.9 pg (27.0-31.0); MEAN CORPUSCULAR HGB CONC 29.9 g/dL (32.0-36.0); MEAN CORPUSCULAR VOLUME 96.6 fL (80.0-94.0); MEAN PLATELET VOLUME 10.2 fL (7.4-11.4); MONOCYTES # (AUTO) 0.6 10^3/uL (0.0-1.0); MONOCYTES % (AUTO) 8.5 %; NEUTROPHILS # (AUTO) 5.6 10^3/uL (1.5-6.6); NEUTROPHILS % (AUTO) 78.7 %; PLT - PLATELET COUNT 194 10^3/uL (130-450); RED BLOOD COUNT 4.12 10^6/uL (4.70-6.10); WHITE BLOOD COUNT 7.1 x10^3/uL (4.8-10.8)
[2021-08-23 06:51] LABS: CALCIUM 8.7 mg/dL (8.5-10.3); CREATININE 1.2 mg/dL (0.6-1.2); POTASSIUM 3.9 mmol/L (3.5-5.0)
--- NOTE | 2021-08-23 07:10 | PROVIDER PROGRESS NOTE ---
Subjective - Prog Note Date Prog Note Date: 08/23/21 - Subjective Subjective: He reports his pain is controlled for the most part. He only feels a little sore when he is moving. No bowel movement today but he also denies any nausea or vomiting. He has had flatus. He has been tolerating ice chips. Current Medications - Current Medications Current Medications: Active Medications Acetaminophen (Acetaminophen 325 Mg Tablet) 650 mg PO Q4HR PRN PRN Reason: Pain 1 to 4 Last Admin: 08/22/21 16:21 Dose: 650 mg Documented by: Amlodipine Besylate (Amlodipine 5 Mg Tablet) 5 mg PO DAILY [facility] Last Admin: 08/23/21 07:38 Dose: 5 mg Documented by: Heparin Sodium (Porcine) (Heparin 5,000 Unit/Ml Vial) 5,000 unit SUBQ BID [facility] Last Admin: 08/22/21 21:22 Dose: 5,000 unit Documented by: Acetaminophen (Ofirmev) 100 mls @ 400 mls/hr IV Q6HR PRN PRN Reason: PAIN Stop: 08/23/21 15:45 Lactated Ringer's (Lr) 1,000 mls @ 125 mls/hr IV .Q8H [facility] Last Admin: 08/23/21 05:42 Dose: 125 mls/hr Documented by: Lisinopril (Lisinopril 20 Mg Tablet) 20 mg PO DAILY [facility] Last Admin: 08/23/21 04:12 Dose: 20 mg Documented by: Morphine Sulfate (Morphine 2 Mg/Ml Carpuject) 2 mg IVP Q2HR PRN PRN Reason: PAIN Last Admin: 08/23/21 05:54 Dose: 2 mg Documented by: Ondansetron HCl (Ondansetron 4 Mg/2 Ml Vial) 4 mg IVP Q6HR PRN PRN Reason: Nausea / Vomiting Last Admin: 08/22/21 16:21 Dose: 4 mg Documented by: Pantoprazole Sodium (Pantoprazole 40 Mg Vial) 40 mg IVP QDAC [facility] Last Admin: 08/23/21 05:56 Dose: 40 mg Documented by: Sodium Chloride (Sodium Chloride Flush 0.9% 10 Ml Syringe) 10 ml IVP PRN PRN PRN Reason: NEEDED PER PROVIDER ORDERS Last Admin: 08/21/21 06:05 Dose: 10 ml Documented by: Sodium Chloride (Sodium Chloride Flush 0.9% 10 Ml Syringe) 10 ml IVP 0100,0900,1700 [facility] Last Admin: 08/23/21 05:55 Dose: 10 ml Documented by: Sodium Chloride (Sodium Chloride Flush 0.9% 10 Ml Syringe) 10 ml IVP 0100,0900,1700 [facility] Last Admin: 08/23/21 00:45 Dose: 10 ml Documented by: Sodium Chloride (Sodium Chloride Flush 0.9% 10 Ml Syringe) 10 ml IVP PRN PRN PRN Reason: NEEDED PER PROVIDER ORDERS Aspirin Chewable [[place] Aspirin] 81 mg PO DAILY 08/20/21 Atorvastatin [Lipitor] 20 mg PO DAILY 08/20/21 Lisinopril [Zestril] 20 mg PO DAILY 08/20/21 Pantoprazole Sodium 20 mg PO BID 08/20/21 Objective - Vital Signs/Intake & Output Reviewed Vital Signs: Yes Vital Signs: Vital Signs x48h Temp Pulse Resp BP BP Pulse Ox 08/23/21 05:55 57 L 170/51 H 08/23/21 03:55 36.8 C 55 L 18 181/61 H 186/59 H 96 Intake & Output: Intake & Output 08/20/21 08/21/21 08/22/21 08/23/21 23:59 23:59 23:59 22:59 Intake Total 1976 2596.667 3224.583 996.667 Output Total 2325 850 750 600 Balance -348 7409.824 6026.583 396.667 - Objective General Appearance: positive: No acute distress, Alert Eyes Bilateral: positive: Normal inspection, Conjunctivae nml ENT: positive: ENT inspection nml Neck: positive: Nml inspection Respiratory: positive: No respiratory distress. negative: Wheezes, Rales Cardiovascular: positive: Irregularly irregular, Systolic murmur. negative: Tachycardia Abdomen: positive: Nml bowel sounds, No distention, Tenderness (Mild diffuse tenderness.), Other (Dressing in place.). negative: Non-tender Skin: positive: Warm, Dry Extremities: positive: No pedal edema Neurologic/Psychiatric: negative: Disoriented to person, Disoriented to place - Lab Results Fish Bones: 08/23/21 06:23 08/23/21 06:23 Other Labs: Lab Results x24hrs 08/23/21 08/23/21 08/22/21 Range/Units 06:23 06:23 23:52 WBC 7.1 (4.8-10.8) x10^3/uL RBC 4.12 L (4.70-6.10) 10^6/uL Hgb 11.9 L (14.0-18.0) g/dL Hct 39.8 L (42.0-52.0) % MCV 96.6 H (80.0-94.0) fL MCH 28.9 (27.0-31.0) pg MCHC 29.9 L (32.0-36.0) g/dL RDW 14.0 (12.0-15.0) % Plt Count 194 (130-450) 10^3/uL MPV 10.2 (7.4-11.4) fL Neut # (Auto) 5.6 (1.5-6.6) 10^3/uL Lymph # (Auto) 0.8 L (1.5-3.5) 10^3/uL [place] # (Auto) 0.6 (0.0-1.0) 10^3/uL Eos # (Auto) 0.1 (0.0-0.7) 10^3/uL Baso # (Auto) 0.0 (0.0-0.1) 10^3/uL Absolute Nucleated RBC 0.00 x10^3/uL Nucleated RBC % 0.0 /100WBC Sodium 140 (135-145) mmol/L Potassium 3.9 (3.5-5.0) mmol/L Chloride 107 (101-111) mmol/L Carbon Dioxide 20 L (21-32) mmol/L Anion Gap 13.0 (6-13) BUN 24 H (6-20) mg/dL Creatinine 1.2 (0.6-1.2) mg/dL Estimated GFR (MDRD) 58 L (>89) Glucose 89 (70-100) mg/dL POC Whole Bld Glucose 83 (70 - 100) mg/dL Calcium 8.7 (8.5-10.3) mg/dL 08/22/21 08/22/21 Range/Units 17:41 11:47 WBC (4.8-10.8) x10^3/uL RBC (4.70-6.10) 10^6/uL Hgb (14.0-18.0) g/dL Hct (42.0-52.0) % MCV (80.0-94.0) fL MCH (27.0-31.0) pg MCHC (32.0-36.0) g/dL RDW (12.0-15.0) % Plt Count (130-450) 10^3/uL MPV (7.4-11.4) fL Neut # (Auto) (1.5-6.6) 10^3/uL Lymph # (Auto) (1.5-3.5) 10^3/uL [place] # (Auto) (0.0-1.0) 10^3/uL Eos # (Auto) (0.0-0.7) 10^3/uL Baso # (Auto) (0.0-0.1) 10^3/uL Absolute Nucleated RBC x10^3/uL Nucleated RBC % /100WBC Sodium (135-145) mmol/L Potassium (3.5-5.0) mmol/L Chloride (101-111) mmol/L Carbon Dioxide (21-32) mmol/L Anion Gap (6-13) BUN (6-20) mg/dL Creatinine (0.6-1.2) mg/dL Estimated GFR (MDRD) (>89) Glucose (70-100) mg/dL POC Whole Bld Glucose 81 71 (70 - 100) mg/dL Calcium (8.5-10.3) mg/dL Assessment/Plan - Problem List (1) Small bowel obstruction Impression: He is now postop day 2 of an expiratory laparotomy with lysis of adhesions. He has been tolerating ice chips and had a small bowel movement yesterday. No further nausea or emesis. Will defer to general surgery but suspect he started on a clear liquid diet today and this can be advanced over next 24 hours. We will continue IV fluid for the time being but will look to discontinue them sometime today or tomorrow once he is taking p.o. consistently. Continue with morphine for pain control and Zofran as needed for nausea. (2) Atrial fibrillation Impression: Stable and rate controlled. He is on aspirin but not anticoagulation which he states was discontinued previously. He is also not on any rate control medications. We will look to resume aspirin today. (3) Hypertension Impression: He is still quite hypertensive with systolics in the 180s. We did resume his home lisinopril yesterday and today we will add amlodipine 5 mg. (4) Renal mass, left Impression: He has a left renal mass and reportedly has been worked up/biopsy in the past and he was told it was benign. (5) Cardiac murmur Impression: Preliminary echocardiogram report revealed no significant valvular disease. (6) GERD (gastroesophageal reflux disease) Impression: We will switch to p.o. Protonix.
[2021-08-23] MEDS: amLODIPine 5 MG TABLET PO SCH ×2 (07:38→09:00)
[2021-08-23] MEDS: HEPARIN 5,000 UNIT/ML VIAL SUBQ SCH ×2 (08:57→20:58)
--- NOTE | 2021-08-23 11:26 | PROVIDER PROGRESS NOTE ---
Subjective - General Admit Date: 08/20/21 Procedure Date: 08/21/21 Post Op Days: 2 Procedure Performed: Ex lap, lysis of adhesions - Review of Systems Wound/Incisions: positive: Dressing dry and intact General: positive: No symptoms Gastrointestinal: negative: Nausea, Abdominal pain, Flatus Objective - Patient Data Vital Signs: Vital Signs x48h Temp Pulse Resp BP BP Pulse Ox 08/23/21 09:00 36.5 C 58 L 16 150/56 H 100 08/23/21 07:11 52 L 189/64 H 08/23/21 05:55 57 L 170/51 H 08/23/21 03:55 36.8 C 55 L 18 181/61 H 186/59 H 96 Weight: Weight 08/21/21 08/22/21 08/23/21 23:59 23:59 22:59 Weight (kg) 78.5 kg Intake & Output: Intake and Output Totals x24h 08/21/21 08/22/21 08/23/21 23:59 23:59 22:59 Intake Total 2596.667 3224.583 996.667 Output Total 340 610 9061 Balance 8823.920 0452.583 -103.333 - Lab Results Lab Results: 08/23/21 06:23 08/23/21 06:23 Other Lab Results: Lab Results x24hrs 08/23/21 08/23/21 08/23/21 Range/Units 11:18 06:23 06:23 WBC 7.1 (4.8-10.8) x10^3/uL RBC 4.12 L (4.70-6.10) 10^6/uL Hgb 11.9 L (14.0-18.0) g/dL Hct 39.8 L (42.0-52.0) % MCV 96.6 H (80.0-94.0) fL MCH 28.9 (27.0-31.0) pg MCHC 29.9 L (32.0-36.0) g/dL RDW 14.0 (12.0-15.0) % Plt Count 194 (130-450) 10^3/uL MPV 10.2 (7.4-11.4) fL Neut # (Auto) 5.6 (1.5-6.6) 10^3/uL Lymph # (Auto) 0.8 L (1.5-3.5) 10^3/uL [place] # (Auto) 0.6 (0.0-1.0) 10^3/uL Eos # (Auto) 0.1 (0.0-0.7) 10^3/uL Baso # (Auto) 0.0 (0.0-0.1) 10^3/uL Absolute Nucleated RBC 0.00 x10^3/uL Nucleated RBC % 0.0 /100WBC Sodium 140 (135-145) mmol/L Potassium 3.9 (3.5-5.0) mmol/L Chloride 107 (101-111) mmol/L Carbon Dioxide 20 L (21-32) mmol/L Anion Gap 13.0 (6-13) BUN 24 H (6-20) mg/dL Creatinine 1.2 (0.6-1.2) mg/dL Estimated GFR (MDRD) 58 L (>89) Glucose 89 (70-100) mg/dL POC Whole Bld Glucose 76 (70 - 100) mg/dL Calcium 8.7 (8.5-10.3) mg/dL 08/22/21 08/22/21 Range/Units 23:52 17:41 WBC (4.8-10.8) x10^3/uL RBC (4.70-6.10) 10^6/uL Hgb (14.0-18.0) g/dL Hct (42.0-52.0) % MCV (80.0-94.0) fL MCH (27.0-31.0) pg MCHC (32.0-36.0) g/dL RDW (12.0-15.0) % Plt Count (130-450) 10^3/uL MPV (7.4-11.4) fL Neut # (Auto) (1.5-6.6) 10^3/uL Lymph # (Auto) (1.5-3.5) 10^3/uL [place] # (Auto) (0.0-1.0) 10^3/uL Eos # (Auto) (0.0-0.7) 10^3/uL Baso # (Auto) (0.0-0.1) 10^3/uL Absolute Nucleated RBC x10^3/uL Nucleated RBC % /100WBC Sodium (135-145) mmol/L Potassium (3.5-5.0) mmol/L Chloride (101-111) mmol/L Carbon Dioxide (21-32) mmol/L Anion Gap (6-13) BUN (6-20) mg/dL Creatinine (0.6-1.2) mg/dL Estimated GFR (MDRD) (>89) Glucose (70-100) mg/dL POC Whole Bld Glucose 83 81 (70 - 100) mg/dL Calcium (8.5-10.3) mg/dL - Current Medications Current Medications: Current Medications Generic Name Dose Route Start Last Admin Trade Name Freq PRN Reason Stop Dose Admin Acetaminophen 650 mg 08/20/21 05:30 08/22/21 16:21 Acetaminophen 325 Mg Tablet PO 650 mg Q4HR PRN Administration Pain 1 to 4 Amlodipine Besylate 5 mg 08/23/21 07:12 08/23/21 09:00 Amlodipine 5 Mg Tablet PO Not Given DAILY OSKAR Heparin Sodium (Porcine) 5,000 unit 08/20/21 09:00 08/23/21 08:57 Heparin 5,000 Unit/Ml Vial SUBQ 5,000 unit BID OSKAR Administration Lactated Ringer's 1,000 mls @ 125 mls/hr 08/22/21 10:00 08/23/21 05:42 Lr IV 125 mls/hr .Q8H OSKAR Administration Lisinopril 20 mg 08/22/21 13:00 08/23/21 04:12 Lisinopril 20 Mg Tablet PO 20 mg DAILY OSKAR Administration Morphine Sulfate 2 mg 08/21/21 11:30 08/23/21 10:56 Morphine 2 Mg/Ml Carpuject IVP 2 mg Q2HR PRN Administration PAIN Ondansetron HCl 4 mg 08/20/21 05:30 08/22/21 16:21 Ondansetron 4 Mg/2 Ml Vial IVP 4 mg Q6HR PRN Administration Nausea / Vomiting Sodium Chloride 10 ml 08/20/21 05:30 08/21/21 06:05 Sodium Chloride Flush 0.9% 10 Ml Syringe IVP 10 ml PRN PRN Administration NEEDED PER PROVIDER ORDERS Sodium Chloride 10 ml 08/20/21 09:00 08/23/21 05:55 Sodium Chloride Flush 0.9% 10 Ml Syringe IVP 10 ml 0100,0900,1700 OSKAR Administration Sodium Chloride 10 ml 08/21/21 17:00 08/23/21 08:57 Sodium Chloride Flush 0.9% 10 Ml Syringe IVP 10 ml 0100,0900,1700 OSKAR Administration - Physical Exam Wound/Incisions: positive: Dressing dry and intact General Appearance: positive: No acute distress Abdomen: positive: Non-tender Impression/Plan - Problem List Problem List: Stable POD#2 after ex lap and lysis of adhesions. Has been passing flatus. No N/V/distention after NG discontinued yesterday. Start clears today.
[2021-08-23] MEDS: oxyCODONE 5 MG TABLET PO PRN (22:24)
[2021-08-24] MEDS: LACTATED RINGERS 1,000 ML IV SCH (05:21)
[2021-08-24 05:35] LABS: BASOPHILS % (AUTO) 0.3 %; EOSINOPHILS # (AUTO) 0.1 10^3/uL (0.0-0.7); HCT - HEMATOCRIT 35.6 % (42.0-52.0); HGB - HEMOGLOBIN 11.4 g/dL (14.0-18.0); LYMPHOCYTES # (AUTO) 0.6 10^3/uL (1.5-3.5); LYMPHOCYTES % (AUTO) 10.7 %; MEAN CORPUSCULAR HEMOGLOBIN 29.8 pg (27.0-31.0); MEAN CORPUSCULAR VOLUME 93.2 fL (80.0-94.0); MONOCYTES # (AUTO) 0.7 10^3/uL (0.0-1.0); MONOCYTES % (AUTO) 12.2 %; NEUTROPHILS # (AUTO) 4.5 10^3/uL (1.5-6.6); NEUTROPHILS % (AUTO) 75.1 %; PLT - PLATELET COUNT 189 10^3/uL (130-450); RED BLOOD COUNT 3.82 10^6/uL (4.70-6.10); RED CELL DISTRIBUTION WIDTH 13.5 % (12.0-15.0)
[2021-08-24 05:48] LABS: CALCIUM 8.1 mg/dL (8.5-10.3); POTASSIUM 3.3 mmol/L (3.5-5.0); URIC ACID 5.9 mg/dL (2.6-7.2)
[2021-08-24] MEDS: PANTOPRAZOLE 40 MG TABLET PO SCH (07:02)
[2021-08-24] MEDS: KETOROLAC 15 MG/ML VIAL IVP PRN ×3 (08:11→18:05)
[2021-08-24] MEDS: amLODIPine 5 MG TABLET PO SCH (08:39)
[2021-08-24] MEDS: HEPARIN 5,000 UNIT/ML VIAL SUBQ SCH ×2 (08:39→21:14)
[2021-08-24] MEDS: lisinopriL 20 MG TABLET PO SCH (08:39)
[2021-08-24] MEDS: SODIUM CHLORIDE FLUSH 0.9% 10 ML SYRINGE IVP SCH ×5 (08:43→23:47)
[2021-08-24] MEDS: oxyCODONE 5 MG TABLET PO PRN (10:30)
--- NOTE | 2021-08-24 10:53 | PROVIDER PROGRESS NOTE ---
Subjective - Subjective Pt reports feeling: Improved (tolerating clears well. appetite improving) Objective - Vital Signs/Intake & Output Reviewed Vital Signs: Yes Vital Signs: Vital Signs x48h Temp Pulse Resp BP Pulse Ox 08/24/21 07:49 36.8 C 53 L 18 176/60 H 98 08/24/21 04:12 36.8 C 50 L 13 187/61 H 95 Intake & Output: Intake & Output 08/22/21 08/23/21 08/23/21 08/24/21 00:59 00:59 23:59 23:59 Intake Total 1349.583 Output Total 300 Balance 1049.583 - Objective General Appearance: positive: No acute distress, Alert Eyes Bilateral: positive: PERRL, EOMI ENT: positive: No signs of dehydration Neck: positive: No JVD Respiratory: positive: No respiratory distress Abdomen: positive: Non-tender, No distention, Other (dressing c/d/i no erythema) Neurologic/Psychiatric: positive: Oriented x3 - Lab Results Fish Bones: 08/24/21 05:12 08/24/21 05:12 Other Labs: Lab Results x24hrs 08/24/21 08/24/21 08/24/21 Range/Units 05:19 05:12 05:12 WBC 6.0 (4.8-10.8) x10^3/uL RBC 3.82 L (4.70-6.10) 10^6/uL Hgb 11.4 L (14.0-18.0) g/dL Hct 35.6 L (42.0-52.0) % MCV 93.2 (80.0-94.0) fL MCH 29.8 (27.0-31.0) pg MCHC 32.0 (32.0-36.0) g/dL RDW 13.5 (12.0-15.0) % Plt Count 189 (130-450) 10^3/uL MPV 10.0 (7.4-11.4) fL Neut # (Auto) 4.5 (1.5-6.6) 10^3/uL Lymph # (Auto) 0.6 L (1.5-3.5) 10^3/uL [place] # (Auto) 0.7 (0.0-1.0) 10^3/uL Eos # (Auto) 0.1 (0.0-0.7) 10^3/uL Baso # (Auto) 0.0 (0.0-0.1) 10^3/uL Absolute Nucleated RBC 0.00 x10^3/uL Nucleated RBC % 0.0 /100WBC Sodium 137 (135-145) mmol/L Potassium 3.3 L (3.5-5.0) mmol/L Chloride 104 (101-111) mmol/L Carbon Dioxide 25 (21-32) mmol/L Anion Gap 8.0 (6-13) BUN 18 (6-20) mg/dL Creatinine 1.0 (0.6-1.2) mg/dL Estimated GFR (MDRD) 72 L (>89) Glucose 99 (70-100) mg/dL POC Whole Bld Glucose 97 (70 - 100) mg/dL Uric Acid 5.9 (2.6-7.2) mg/dL Calcium 8.1 L (8.5-10.3) mg/dL 08/23/21 08/23/21 08/23/21 Range/Units 23:40 17:37 11:18 WBC (4.8-10.8) x10^3/uL RBC (4.70-6.10) 10^6/uL Hgb (14.0-18.0) g/dL Hct (42.0-52.0) % MCV (80.0-94.0) fL MCH (27.0-31.0) pg MCHC (32.0-36.0) g/dL RDW (12.0-15.0) % Plt Count (130-450) 10^3/uL MPV (7.4-11.4) fL Neut # (Auto) (1.5-6.6) 10^3/uL Lymph # (Auto) (1.5-3.5) 10^3/uL [place] # (Auto) (0.0-1.0) 10^3/uL Eos # (Auto) (0.0-0.7) 10^3/uL Baso # (Auto) (0.0-0.1) 10^3/uL Absolute Nucleated RBC x10^3/uL Nucleated RBC % /100WBC Sodium (135-145) mmol/L Potassium (3.5-5.0) mmol/L Chloride (101-111) mmol/L Carbon Dioxide (21-32) mmol/L Anion Gap (6-13) BUN (6-20) mg/dL Creatinine (0.6-1.2) mg/dL Estimated GFR (MDRD) (>89) Glucose (70-100) mg/dL POC Whole Bld Glucose 103 H 121 H 76 (70 - 100) mg/dL Uric Acid (2.6-7.2) mg/dL Calcium (8.5-10.3) mg/dL Assessment/Plan - Problem List (1) Small bowel obstruction Impression: ileus resolved. diet soft low fiber d/c ivf low k. kcl ordered possibly home tomorrow
[2021-08-24] MEDS: POTASSIUM CHLOR 10 MEQ/100 ML 10 MEQ/100 ML BAG IV SCH ×4 (11:21→14:29)
[2021-08-24] MEDS: SODIUM CHLORIDE FLUSH 0.9% 10 ML SYRINGE IVP PRN (18:06)
--- NOTE | 2021-08-24 18:32 | PROVIDER PROGRESS NOTE ---
Subjective - Prog Note Date Prog Note Date: 08/24/21 - Subjective Subjective: Reports feeling okay. He does not have much of an appetite. No nausea or vomiting. No bowel movement today but he is passing gas. Denies any abdominal pain. Current Medications - Current Medications Current Medications: Active Medications Acetaminophen (Acetaminophen 325 Mg Tablet) 650 mg PO Q4HR PRN PRN Reason: Pain 1 to 4 Last Admin: 08/22/21 16:21 Dose: 650 mg Documented by: Amlodipine Besylate (Amlodipine 5 Mg Tablet) 5 mg PO DAILY [facility] Last Admin: 08/24/21 08:39 Dose: 5 mg Documented by: Heparin Sodium (Porcine) (Heparin 5,000 Unit/Ml Vial) 5,000 unit SUBQ BID [facility] Last Admin: 08/24/21 08:39 Dose: 5,000 unit Documented by: Lisinopril (Lisinopril 20 Mg Tablet) 20 mg PO DAILY [facility] Last Admin: 08/24/21 08:39 Dose: 20 mg Documented by: Morphine Sulfate (Morphine 2 Mg/Ml Carpuject) 2 mg IVP Q2HR PRN PRN Reason: PAIN Last Admin: 08/23/21 18:36 Dose: 2 mg Documented by: Ondansetron HCl (Ondansetron 4 Mg/2 Ml Vial) 4 mg IVP Q6HR PRN PRN Reason: Nausea / Vomiting Last Admin: 08/22/21 16:21 Dose: 4 mg Documented by: Oxycodone HCl (Oxycodone 5 Mg Tablet) 5 mg PO Q4HR PRN PRN Reason: PAIN Last Admin: 08/24/21 10:30 Dose: 5 mg Documented by: Pantoprazole Sodium (Pantoprazole 40 Mg Tablet) 40 mg PO QDAC [facility] Last Admin: 08/24/21 07:02 Dose: 40 mg Documented by: Sodium Chloride (Sodium Chloride Flush 0.9% 10 Ml Syringe) 10 ml IVP PRN PRN PRN Reason: NEEDED PER PROVIDER ORDERS Last Admin: 08/24/21 18:06 Dose: 10 ml Documented by: Sodium Chloride (Sodium Chloride Flush 0.9% 10 Ml Syringe) 10 ml IVP 0100,0900,1700 [facility] Last Admin: 08/24/21 15:57 Dose: Not Given Documented by: Sodium Chloride (Sodium Chloride Flush 0.9% 10 Ml Syringe) 10 ml IVP 0100,0900,1700 [facility] Last Admin: 08/24/21 15:58 Dose: Not Given Documented by: Sodium Chloride (Sodium Chloride Flush 0.9% 10 Ml Syringe) 10 ml IVP PRN PRN PRN Reason: NEEDED PER PROVIDER ORDERS Aspirin Chewable [[place] Aspirin] 81 mg PO DAILY 08/20/21 Atorvastatin [Lipitor] 20 mg PO DAILY 08/20/21 Lisinopril [Zestril] 20 mg PO DAILY 08/20/21 Pantoprazole Sodium 20 mg PO BID 08/20/21 Objective - Vital Signs/Intake & Output Reviewed Vital Signs: Yes Vital Signs: Vital Signs x48h Temp Pulse Resp BP Pulse Ox 08/24/21 15:43 36.7 C 61 16 147/65 H 95 08/24/21 11:40 36.8 C 57 L 16 177/71 H 98 Intake & Output: Intake & Output 08/22/21 08/23/21 08/23/21 08/24/21 00:59 00:59 23:59 23:59 Intake Total 3747.916 Output Total 800 Balance 2947.916 - Objective General Appearance: positive: No acute distress, Alert Eyes Bilateral: positive: Normal inspection, Conjunctivae nml ENT: positive: ENT inspection nml Neck: positive: Nml inspection Respiratory: positive: No respiratory distress. negative: Wheezes, Rales Cardiovascular: positive: Irregularly irregular, Systolic murmur. negative: Tachycardia Abdomen: positive: Non-tender, Nml bowel sounds, No distention, Other (Dressing in place.). negative: Tenderness Skin: positive: Warm, Dry Extremities: positive: No pedal edema Neurologic/Psychiatric: positive: Motor nml. negative: Disoriented to person, Disoriented to place - Lab Results Fish Bones: 08/24/21 05:12 08/24/21 05:12 Other Labs: Lab Results x24hrs 08/24/21 08/24/21 08/24/21 Range/Units 11:07 05:19 05:12 WBC (4.8-10.8) x10^3/uL RBC (4.70-6.10) 10^6/uL Hgb (14.0-18.0) g/dL Hct (42.0-52.0) % MCV (80.0-94.0) fL MCH (27.0-31.0) pg MCHC (32.0-36.0) g/dL RDW (12.0-15.0) % Plt Count (130-450) 10^3/uL MPV (7.4-11.4) fL Neut # (Auto) (1.5-6.6) 10^3/uL Lymph # (Auto) (1.5-3.5) 10^3/uL [place] # (Auto) (0.0-1.0) 10^3/uL Eos # (Auto) (0.0-0.7) 10^3/uL Baso # (Auto) (0.0-0.1) 10^3/uL Absolute Nucleated RBC x10^3/uL Nucleated RBC % /100WBC Sodium 137 (135-145) mmol/L Potassium 3.3 L (3.5-5.0) mmol/L Chloride 104 (101-111) mmol/L Carbon Dioxide 25 (21-32) mmol/L Anion Gap 8.0 (6-13) BUN 18 (6-20) mg/dL Creatinine 1.0 (0.6-1.2) mg/dL Estimated GFR (MDRD) 72 L (>89) Glucose 99 (70-100) mg/dL POC Whole Bld Glucose 87 97 (70 - 100) mg/dL Uric Acid 5.9 (2.6-7.2) mg/dL Calcium 8.1 L (8.5-10.3) mg/dL 08/24/21 08/23/21 Range/Units 05:12 23:40 WBC 6.0 (4.8-10.8) x10^3/uL RBC 3.82 L (4.70-6.10) 10^6/uL Hgb 11.4 L (14.0-18.0) g/dL Hct 35.6 L (42.0-52.0) % MCV 93.2 (80.0-94.0) fL MCH 29.8 (27.0-31.0) pg MCHC 32.0 (32.0-36.0) g/dL RDW 13.5 (12.0-15.0) % Plt Count 189 (130-450) 10^3/uL MPV 10.0 (7.4-11.4) fL Neut # (Auto) 4.5 (1.5-6.6) 10^3/uL Lymph # (Auto) 0.6 L (1.5-3.5) 10^3/uL [place] # (Auto) 0.7 (0.0-1.0) 10^3/uL Eos # (Auto) 0.1 (0.0-0.7) 10^3/uL Baso # (Auto) 0.0 (0.0-0.1) 10^3/uL Absolute Nucleated RBC 0.00 x10^3/uL Nucleated RBC % 0.0 /100WBC Sodium (135-145) mmol/L Potassium (3.5-5.0) mmol/L Chloride (101-111) mmol/L Carbon Dioxide (21-32) mmol/L Anion Gap (6-13) BUN (6-20) mg/dL Creatinine (0.6-1.2) mg/dL Estimated GFR (MDRD) (>89) Glucose (70-100) mg/dL POC Whole Bld Glucose 103 H (70 - 100) mg/dL Uric Acid (2.6-7.2) mg/dL Calcium (8.5-10.3) mg/dL Assessment/Plan - Problem List (1) Small bowel obstruction Impression: He is now postop day 3 of exploratory laparotomy with lysis of adhesions. He is doing well and his diet has been advanced to a soft diet. His pain is also controlled. I suspect he can likely be discharged tomorrow if it is okay with general surgery. (2) Atrial fibrillation Impression: Stable and rate controlled. He is on aspirin but not anticoagulation which he states was discontinued previously. He is also not on any rate control medications. We will resume aspirin. (3) Hypertension Impression: His blood pressure is better controlled with addition of amlodipine. If it remains elevated tomorrow we can increase the dose of lisinopril or amlodipine (4) Renal mass, left Impression: He has a left renal mass and reportedly has been worked up/biopsy in the past and he was told it was benign. (5) Cardiac murmur Impression: Preliminary echocardiogram report revealed no significant valvular disease. (6) GERD (gastroesophageal reflux disease) Impression: We will switch to p.o. Protonix.
[2021-08-25] MEDS: SODIUM CHLORIDE FLUSH 0.9% 10 ML SYRINGE IVP SCH ×7 (01:13→23:34)
[2021-08-25 05:39] LABS: BASOPHILS % (AUTO) 0.4 %; EOSINOPHILS # (AUTO) 0.1 10^3/uL (0.0-0.7); EOSINOPHILS % (AUTO) 0.9 %; HGB - HEMOGLOBIN 11.7 g/dL (14.0-18.0); LYMPHOCYTES # (AUTO) 0.5 10^3/uL (1.5-3.5); LYMPHOCYTES % (AUTO) 6.6 %; MEAN CORPUSCULAR HEMOGLOBIN 29.2 pg (27.0-31.0); MEAN CORPUSCULAR HGB CONC 31.6 g/dL (32.0-36.0); MEAN CORPUSCULAR VOLUME 92.3 fL (80.0-94.0); MEAN PLATELET VOLUME 9.7 fL (7.4-11.4); MONOCYTES # (AUTO) 0.7 10^3/uL (0.0-1.0); MONOCYTES % (AUTO) 8.8 %; NEUTROPHILS # (AUTO) 6.6 10^3/uL (1.5-6.6); NEUTROPHILS % (AUTO) 82.7 %; PLT - PLATELET COUNT 211 10^3/uL (130-450); RED BLOOD COUNT 4.01 10^6/uL (4.70-6.10); RED CELL DISTRIBUTION WIDTH 13.2 % (12.0-15.0)
[2021-08-25 05:47] LABS: CALCIUM 8.2 mg/dL (8.5-10.3); CREATININE 1.1 mg/dL (0.6-1.2); POTASSIUM 3.7 mmol/L (3.5-5.0)
[2021-08-25] MEDS: PANTOPRAZOLE 40 MG TABLET PO SCH (06:21)
[2021-08-25] MEDS: ASPIRIN CHEW 81 MG TABLET PO SCH (08:09)
[2021-08-25] MEDS: amLODIPine 5 MG TABLET PO SCH (08:09)
[2021-08-25] MEDS: HEPARIN 5,000 UNIT/ML VIAL SUBQ SCH ×2 (08:10→21:27)
[2021-08-25] MEDS: lisinopriL 20 MG TABLET PO SCH (08:10)
--- NOTE | 2021-08-25 09:09 | Discharge Plan ---
Discharge Plan Problem Reviewed?: Yes Disposition: Home, Self Care Condition: Good Diet: Regular Activity Restrictions: No Restrictions Shower Restrictions: No Weight Bearing: Full Weight Plan of Treatment: Lysis of adhesions/ treatment of small bowel obstruction. Assessment: doing well after surgery for bowel obstruction. Additional Instructions or Follow Up instructions: follow up surgery office with any concerns follow up tuesday09/01/2021 in the surgery office please call with any concerns and call to confirm appointment time [phone] No Smoking: If you smoke, Please STOP! Call for help. Follow-up with: KAREN UP ARNP [Primary Care Provider] -
--- NOTE | 2021-08-25 09:28 | DISCHARGE SUMMARY ---
"Discharge Summary Admit Date: 08/20/21 Discharge Date: 08/25/21 Discharging Provider: lisa schulz md Code Status: Attempt Resuscitation Discharge Disposition: 01 Home, Self Care Discharge Facility Name: [facility] - DIAGNOSES Admission Diagnoses: small bowel obstruction Discharge Diagnoses with Status of Each Condition: home in good condition after surgery with lysis of adhesions. - HPI History of Present Illness: presented with bowel obstruction. initially treated medically with ng tube. surgery and lysis of adhesions was required. quickly improved. - CONSULTS | PROCEDURES Procedures: As above. Surgery with lysis of adhesions. - ALLERGIES Allergies/Adverse Reactions: Allergies Allergy/AdvReac Type Severity Reaction Status Date / Time No Known Drug Allergies Allergy Verified 08/20/21 02:39 - MEDICATIONS Home Medications: Ambulatory Orders Medication Instructions Recorded Confirmed Aspirin Chewable [[place] 81 mg PO DAILY 08/20/21 08/20/21 Aspirin] Atorvastatin [Lipitor] 20 mg PO DAILY 08/20/21 08/20/21 Lisinopril [Zestril] 20 mg PO DAILY 08/20/21 08/20/21 Pantoprazole Sodium 20 mg PO BID 08/20/21 08/20/21 - PHYSICAL EXAM AT DISCHARGE General Appearance: positive: No acute distress, Alert Eyes Bilateral: positive: PERRL, EOMI ENT: positive: No signs of dehydration Neck: positive: No JVD Respiratory: positive: No respiratory distress Abdomen: positive: Non-tender, No distention, Other (incision c/d/i. no erythema) Neurologic/Psychiatric: positive: Oriented x3 - LABS Result Diagrams: 08/25/21 05:10 08/25/21 05:10 - FOLLOW UP Follow Up: Follow up in the surgery office 09/01/2021 please call with any concerns please call to confirm appointment time daily dry dressing and paper tape to incision area ok to shower and get the incision wet diet of choice or as tolerated"
--- NOTE | 2021-08-25 12:04 | DISCHARGE TRANSFER SUMMARY ---
"Transfer Summary Admit Date: 08/20/21 Transfer Date: 08/25/21 Discharging Provider: lisa schulz Code Status: Attempt Resuscitation Condition at Discharge: Good Discharge Disposition: 03 SNF DC/Xfer Discharge Facility Name: [facility] Transfer to Location: [facility] - DIAGNOSES Admission Diagnoses: small bowel obstruction Discharge Diagnoses with Status of Each Condition: home in good condition after surgery with lysis of adhesions - HPI History of Present Illness: Presented with high grade small bowel obstruction which required surgery - CONSULTS | PROCEDURES Procedures: as above. laparotomy with lysis of adhesions. - HOSPITAL COURSE Hospital Course: quickly improved after surgery. tolerating diet. bowel function has resumed. normal postop abdominal exam. - ALLERGIES Allergies/Adverse Reactions: Allergies Allergy/AdvReac Type Severity Reaction Status Date / Time No Known Drug Allergies Allergy Verified 08/20/21 02:39 - MEDICATIONS Home Medications: Ambulatory Orders Medication Instructions Recorded Confirmed Aspirin Chewable [[place] 81 mg PO DAILY 08/20/21 08/20/21 Aspirin] Atorvastatin [Lipitor] 20 mg PO DAILY 08/20/21 08/20/21 Lisinopril [Zestril] 20 mg PO DAILY 08/20/21 08/20/21 Pantoprazole Sodium 20 mg PO BID 08/20/21 08/20/21 - PHYSICAL EXAM AT DISCHARGE General Appearance: positive: No acute distress, Alert Eyes Bilateral: positive: PERRL, EOMI Respiratory: positive: No respiratory distress Abdomen: positive: Non-tender, No distention Neurologic/Psychiatric: positive: Oriented x3 - LABS Result Diagrams: 08/25/21 05:10 08/25/21 05:10 - FOLLOW UP Follow Up: surgery 09/01/2021 and as needed [phone]"
[2021-08-25] MEDS: ACETAMINOPHEN 325 MG TABLET PO PRN (16:12)
[2021-08-26] MEDS: PANTOPRAZOLE 40 MG TABLET PO SCH (05:41)
--- NOTE | 2021-08-26 07:37 | PROVIDER PROGRESS NOTE ---
Subjective - Prog Note Date Prog Note Date: 08/26/21 - Subjective Subjective: resting soundly Objective - Vital Signs/Intake & Output Vital Signs: Vital Signs x48h Temp Pulse Resp BP Pulse Ox 08/26/21 03:33 36.4 C L 52 L 18 152/66 H 97 Intake & Output: Intake & Output 08/23/21 08/24/21 08/25/21 08/26/21 23:59 23:59 23:59 23:59 Intake Total 4047.916 1650 100 Output Total 1200 1175 400 Balance 2847.916 475 -300 - Objective General Appearance: positive: Other (resting soundly) Respiratory: positive: No respiratory distress Abdomen: positive: No distention - Lab Results Fish Bones: 08/25/21 05:10 08/25/21 05:10 Assessment/Plan - Problem List (1) Small bowel obstruction Impression: doing well. d/c to his assisted care facility. no restrictions. no new prescriptions. follow up surgery office 09/01/2021
[2021-08-26] MEDS: lisinopriL 20 MG TABLET PO SCH (08:19)
[2021-08-26] MEDS: ASPIRIN CHEW 81 MG TABLET PO SCH (08:19)
[2021-08-26] MEDS: HEPARIN 5,000 UNIT/ML VIAL SUBQ SCH (08:19)
[2021-08-26] MEDS: SODIUM CHLORIDE FLUSH 0.9% 10 ML SYRINGE IVP SCH ×2 (08:20)
[2021-08-26] MEDS: amLODIPine 5 MG TABLET PO SCH (08:20)
[2021-08-26 11:09] VITALS: BP 149/54
[2021-08-26 11:19] LABS: B. PARAPERTUSSIS- RESP PCR PAN NOT DETECTED; B. PERTUSSIS- RESP PCR PANEL NOT DETECTED; C. PNEUMONIAE- RESP PCR PANEL NOT DETECTED; CORONAVIRUS 229E-RESP PCR NOT DETECTED; CORONAVIRUS HKU1-RESP PCR NOT DETECTED; CORONAVIRUS NL63-RESP PCR NOT DETECTED; CORONAVIRUS OC43-RESP PCR NOT DETECTED; HUMAN METAPNEUMOVIRUS NOT DETECTED; INFLUENZA A- RESP PCR PANEL NOT DETECTED; INFLUENZA B - RESP PCR PANEL NOT DETECTED; M. PNEUMONIAE- RESP PCR PANEL NOT DETECTED; PARAINFLUENZA VIRUS 1 NOT DETECTED; PARAINFLUENZA VIRUS 2 NOT DETECTED; PARAINFLUENZA VIRUS 3 NOT DETECTED; PARAINFLUENZA VIRUS 4 NOT DETECTED; RHINOVIRUS/ENTEROVIRUS NOT DETECTED; RSV- RESP PCR PANEL NOT DETECTED; SARS-CoV-2 -RESP PCR PANEL NOT DETECTED
--- NOTE | 2021-08-26 11:39 | Discharge Plan ---
"Discharge Plan for SNF / [facility] - Discharge Plan And Transition Orders Problem Reviewed?: Yes Disposition: 01 Home, Self Care Condition: Good Allergies and Adverse Reactions: Allergies Allergy/AdvReac Type Severity Reaction Status Date / Time No Known Drug Allergies Allergy Verified 08/20/21 02:39 Health Concerns: This nancy gentleman lives at [facility]. To our emergency room with abdominal pain that had started at dinnertime the day before admission. Work-up in the emergency room showed him to have a high-grade small bowel obstruction Plan of Treatment: He underwent a lysis of adhesions/ treatment of small bowel obstruction with General surgery. There were no intraoperative or postoperative complications. His diet was advanced and by the time of discharge he is on a soft, low fiber diet and doing well. Pain is controlled. His last use of opiate medication was August 24. While he was here his blood pressure was elevated and amlodipine was added to his usual lisinopril. Care Goals: To return to baseline status of endurance, ambulation, and diet. Assessment: Patient will be discharged to his home which is [facility]. He will follow-up with general surgery on the requested scheduled basis as stated per Dr. Figueredo. Dr. Figueredo is also given the patient his discharge instructions and the patient will follow through on those. - SNF / [facility] Transition Orders Admit to (Facility): [facility] Under the care of (Name): ELAINE Sosa Discharge Diagnosis: 1. Small bowel obstruction 2. Hypertension 3. Chronic atrial fibrillation 4. Coronary artery disease 5. GERD Medicare Certification Statement: I certify that [facility] nursing home care is medically necessary on a continuing basis for any of the conditions for which she/he is receiving care during hospitalization. Notify PCP of admission and forward orders to primary provider for signature. Other Notification Orders: Call PCP immediately if patient develops dyspnea, chest pain/tightness or edema. House Bowel Program: Yes Additional Bowel Program Orders: If no BM after 2 days, nurse may give M.O.M. 30ml PO PRN and/or ducolax Supp 1 ME and/or JOSE DAVID 250mg P.O., and/or senna 1-2 tabs PO. On day 3 nurse may give repeat above order until residents constipation is resolved. Annual Influenza Vaccine (between Jun 17 and January 14): Yes Medication Orders: PLEASE REFER TO THE DISCHARGE MEDICATION LIST. Insulin Orders?: No - Diet Type: Geriatric Texture: Regular (low fiber) Liquids: Thin May have monthly special meal: Yes - Therapies | Activity Activity: Activity as Tolerated Weight Bearing: Full Weight Assistance Devices: Walker Additional Instructions: Follow up in the surgery office 09/01/2021 please call with any concerns please call to confirm appointment time: [phone] daily dry dressing and paper tape to incision area ok to shower and get the incision wet diet of choice or as tolerated"
== END 2021-08-26 12:40 | disposition home or self-care (01) | DRG 336 ==
LOC: ED 02:29 → ICU 05:30 → MS2 18:26
PROVIDERS: ADMIT Internal Medicine; ATTEND Surgery
PROC: 0DN80ZZ Release Small Intestine, Open Approach (ICD-10-PCS; principal; 2021-08-21 14:00)
DX: K56.609 Unspecified intestinal obstruction, unspecified as to partial versus complete obstruction (principal); K56.50 Intestinal adhesions [bands], unspecified as to partial versus complete obstruction; I48.91 Unspecified atrial fibrillation; N17.9 Acute kidney failure, unspecified; I48.20 Chronic atrial fibrillation, unspecified; I10 Essential (primary) hypertension; I25.10 Atherosclerotic heart disease of native coronary artery without angina pectoris; K21.9 Gastro-esophageal reflux disease without esophagitis; N28.89 Other specified disorders of kidney and ureter; Z20.822 Contact with and (suspected) exposure to COVID-19; R01.1 Cardiac murmur, unspecified; Z79.82 Long term (current) use of aspirin
CPT/HCPCS: 36415; 71045; 74177; 80048; 80053; 81001; 83605; 83690; 84550; 85025; 87631; 93306; 96361; 96374; 96375; 99284; 99285; A9270; J0131; J7120; Q9967; 0202U; 81003; 87086

== ENCOUNTER 2022-03-09 09:52 | Outpatient (CLI) | payer MEDICARE, OTHER ==
--- NOTE | 2022-03-10 10:44 | Ultrasound Report ---
PROCEDURE: Retroperitoneal INDICATIONS: KIDNEY MASS TECHNIQUE: Real-time scanning was performed of the retroperitoneal organs, with image documentation. COMPARISON: CT abdomen and pelvis with contrast, 08/20/2021. Ultrasound retroperitoneum, 03/09/2022. FINDINGS: Kidneys: Kidneys are normal in size. Right kidney measures 8.8 cm long; left kidney measures 8.6 cm long. Right renal cortical thickness is 1.4 cm; left renal cortical thickness is 1.1 cm. No hydron ephrosis, or nephrolithiasis. There is a solid, isoechoic mass in mid left kidney measuring 3.5 x 2. 5 x 3.6 cm (2.8 x 3.2 x 2.4 cm on the last CT). A 2.2 x 1.3 x 1.5 cm simple appearing parapelvic cyst is also noted in left kidney. Bladder: Bladder is contracted, therefore, not well visualized. Miscellaneous: No free abdominal fluid. IMPRESSION: 1. A 3.5 x 2.5 x 3.6 cm solid mass in the mid left kidney, highly suspicious for renal cell carcinoma . Previously, it measured 2.8 x 3.2 x 2.4 cm on the comparison CT dated 08/20/2021. 2. A 2.2 x 1.3 x 1.5 cm simple parapelvic cyst in left kidney. 3. Normal right kidney. 4. Bladder is not well seen. Reviewed by: Cherelle Carr MD on 03/10/2022 10:42 AM PDT Approved by: Cherelle Carr MD on 03/10/2022 10:42 AM PDT Station ID: [id number]
== END 2022-03-09 09:53 | disposition home or self-care (01) ==
LOC: DI 09:52
PROVIDERS: ATTEND Surgery
DX: N28.89 Other specified disorders of kidney and ureter (principal)

== ENCOUNTER 2022-04-02 11:09 | Outpatient (CLI) | payer MEDICARE, OTHER | END 2022-04-02 11:10 | disposition critical access hospital (66) | LOC: EMS 11:09 | DX: I95.9 Hypotension, unspecified (principal); R53.1 Weakness; R53.83 Other fatigue; R42 Dizziness and giddiness; R49.0 Dysphonia; Z86.16 Personal history of COVID-19 | CPT/HCPCS: A0425; A0427 ==

== ENCOUNTER 2022-04-02 11:30 | Inpatient (IN) | payer MEDICARE, OTHER ==
--- NOTE | 2022-04-02 11:42 | ED Physician Documentation ---
History of Present Illness - Stated complaint Stated Complaint: WEAKNESS - Additonal information Additional information: 81-year-old male is transferred to the emergency department from [facility] for evaluation of generalized weakness and extensive weight loss. This gentleman has a history of COVID 19 infection in late February. He was treated with paxlovid. As of recently he has had decreased p.o. intake increasing weakness often requiring assistance with ambulation. He reportedly last had a bowel movement yesterday. Patient reports that he was ambulatory this morning. Past medical history is most significant for atrial fibrillation on aspirin only. History of hypertension and GI reflux. Patient does have a history of gastric sleeve surgery. He was admitted to this hospital in late August 2021 with a small bowel obstruction that was surgically corrected due to adhesions. For EMS the patient was noted to be hypotensive systolic blood pressure in the 60s this improved to the 80s after about 600 mL of crystalloid. He has thready pulses and is noted to be bradycardic with HR 40's The patient is alert he does follow commands has no obvious focal deficits. He appears very emaciated and chronically ill. He has a very soft voice but is protecting his airway Review of Systems Constitutional: reports: Weight Loss. denies: Fever, Chills Cardiac: denies: Chest pain / pressure Respiratory: denies: Dyspnea GI: denies: Abdominal Pain Musculoskeletal: denies: Neck pain, Back pain Neurologic: reports: Generalized weakness. denies: Focal weakness, Headache, Head injury, LOC Psychiatric: reports: Reviewed and negative PD PAST MEDICAL HISTORY - Past Medical History Cardiovascular: Hypertension, High cholesterol, Coronary artery disease, Atrial fibrillation Respiratory: None Neuro: None Endocrine/Autoimmune: None GI: GERD : None, Other Musculoskeletal: Osteoarthritis - Past Surgical History Past Surgical History: Yes General: Cholecystectomy, Gastric surgery - Present Medications Home Medications: Ambulatory Orders Medication Instructions Recorded Confirmed Aspirin Chewable [St Sandoval 81 mg PO DAILY 08/20/21 04/02/22 Aspirin] Atorvastatin [Lipitor] 40 mg PO DAILY 08/20/21 04/02/22 Lisinopril [Zestril] 10 mg PO DAILY 08/20/21 04/02/22 Pantoprazole Sodium 40 mg PO DAILY 08/20/21 04/02/22 Citalopram Hydrobromide 10 mg PO DAILY 04/02/22 04/02/22 [Citalopram HBr] Mirtazapine 15 mg PO HS 04/02/22 04/02/22 - Allergies Allergies/Adverse Reactions: Allergies Allergy/AdvReac Type Severity Reaction Status Date / Time No Known Drug Allergies Allergy Verified 04/02/22 12:03 - Social History Does the pt smoke?: No Smoking Status: Never smoker Does the pt drink ETOH?: No Does the pt have substance abuse?: No - Immunizations Immunizations are current?: Yes - POLST Patient has POLST: No POLST Status: Full Code PD ED PE EXPANDED - General General: Other (Very ill-appearing. Emaciated appearance) - Cardiac Cardiac: Kameron, Murmur Present. No: Radial strong equal (Sluggish cap refill. 1+ pulses in all 4 extremities) - Respiratory Respiratory: Clear to ausultation clarissa. No: Distress, Labored - Abdomen Abdomen: Decreased BS (Distant bowel sounds. Soft abdomen without tenderness) - Derm Derm: Pale - Neuro Neuro: Alert and Oriented X 3, CNII-XII intact - GCS Eye Opening: Spontaneous Motor: Obeys Commands Verbal: Oriented Total: 15 Results - Vitals Vitals: Vital Signs - 24 hr 04/02/22 04/02/22 04/02/22 11:37 11:42 12:59 Temperature 36 C L Heart Rate 47 L 47 L 80 Respiratory 21 21 14 Rate Blood Pressure 106/67 106/67 131/60 H O2 Saturation 98 98 99 Oxygen O2 Source Room air - EKG (time done) 1153 Rhythm: Other (Junctional rhythm) Tatamy: Normal Intervals: Normal HI, Prolonged QT Ischemia: Non specific changes (V2-V6), Other (Repolarization abnormality anterior lateral leads suggesting ischemia) - Labs Labs: Laboratory Tests 04/02/22 04/02/22 04/02/22 11:52 11:52 11:52 WBC 14.2 H RBC 4.76 Hgb 14.0 Hct 44.1 MCV 92.6 MCH 29.4 MCHC 31.7 L RDW 14.0 Plt Count 220 MPV 11.0 Neut # (Auto) Not Reportable Lymph # (Auto) Not Reportable [place] # (Auto) Not Reportable Eos # (Auto) Not Reportable Baso # (Auto) Not Reportable Absolute Nucleated RBC Not Reportable Total Counted 100 Band Neuts % (Manual) 37 H Abnorm Lymph % (Manual) 0 Metamyelocytes % 5 H Nucleated RBC % Not Reportable Neutrophils # (Manual) 11.9 H Lymphocytes # (Manual) 0.1 L Monocytes # (Manual) 1.4 H Eosinophils # (Manual) 0.0 Basophils # (Manual) 0.0 Differential Comment MANUAL DIFFERENTIAL Manual Slide Review Indicated WBC Morphology NORMAL APPEARANCE Platelet Estimate NORMAL (130-450,000) Platelet Morphology NORMAL APPEARANCE RBC Morph Micro Appear 1+ ANISOCYTOSIS Sodium 143 Potassium 3.8 Chloride 106 Carbon Dioxide 20 L Anion Gap 17.0 H BUN 90 H* Creatinine 3.8 H Estimated GFR (MDRD) 15 L Glucose 159 H Lactic Acid 2.8 H Calcium 9.2 Phosphorus 3.8 Magnesium 2.3 Total Bilirubin 0.9 AST 24 ALT 17 Alkaline Phosphatase 58 Troponin I High Sens Total Protein 7.0 Albumin 3.5 Globulin 3.5 Albumin/Globulin Ratio 1.0 SARS-CoV-2 (PCR) 04/02/22 04/02/22 11:52 11:53 WBC RBC Hgb Hct MCV MCH MCHC RDW Plt Count MPV Neut # (Auto) Lymph # (Auto) [place] # (Auto) Eos # (Auto) Baso # (Auto) Absolute Nucleated RBC Total Counted Band Neuts % (Manual) Abnorm Lymph % (Manual) Metamyelocytes % Nucleated RBC % Neutrophils # (Manual) Lymphocytes # (Manual) Monocytes # (Manual) Eosinophils # (Manual) Basophils # (Manual) Differential Comment Manual Slide Review WBC Morphology Platelet Estimate Platelet Morphology RBC Morph Micro Appear Sodium Potassium Chloride Carbon Dioxide Anion Gap BUN Creatinine Estimated GFR (MDRD) Glucose Lactic Acid Calcium Phosphorus Magnesium Total Bilirubin AST ALT Alkaline Phosphatase Troponin I High Sens 2434.9 H* Total Protein Albumin Globulin Albumin/Globulin Ratio SARS-CoV-2 (PCR) NOT DETECTED - Rads (name of study) Ct chest Radiology: Final report received (Right lower lobe patchy consolidative airspace piece opacity moderate severity. Most consistent with a pneumonia. Distal mucous airway plugging most pronounced in the right lower lobe. This could be due to aspiration or bronchitis) Ct abd Radiology: Final report received (No bowel obstruction identified. No free fluid no adenopathy or suspicious osseous lesions. Abdominal aortic aneurysm measuring 3 cm. Mild left kidney exophytic mass measuring 2.6 cm is stable and slightly decreased compared to previous a CT. Suspect renal cell carcinoma) PD MEDICAL DECISION MAKING - ED course Complexity details: d/w patient ED course: 81-year-old male is brought to the emergency department from [facility] [place] where he resides for evaluation of progressive weakness over the last few weeks as well as reported 34 lb weight loss. This follows a recent diagnosis of COVID-19 for which she was treated with paxlovid. He has had d ecreasing p.o. intake. No nausea or vomiting but has required increasing assistance with ambulation for which she is typically independent. He was hypotensive for EMS though this improved with IV fluids.He does have a known right renal mass which has been described previously as benign 1155: This gentleman appears critically ill with bradycardia and hypotension. He is however alert and oriented. He appears to have capacity to make decisions. He indicates to me that he would not like life-prolonging measures such as CPR or ventilation. He would not want a pacemaker placed to assist his heart rate. He would not want IV pressors to support his heart rate or blood pressure, but he is okay with IVF and abx and medical treatment otherwise. He indicates to me that he is Shinto and would like a model artists' called for last rights. Patient's blood pressure has improved following a liter of IV fluids. EKG shows a junctional rhythm without QRS widening. His potassium is normal. Patient d oes have a troponin of 2400. Likely leading to NSTEMI given junctional rhythm as well as severe acute kidney injury. Screening labs otherwise show significant dehydration with a BUN of 90 and a creatinine of 3.8. Preliminary a CT of the chest abdomen pelvis has been completed. Per my view he does have a fairly significant right lower lobe pneumonia. He does not appear to have a small bowel obstruction. I have confirmed with this patient that he continues to wish to be DNR/DNI but he is okay with IV fluids and antibiotics. He would continue to not want IV pressors to support heart rate or blood pressure nor would he want a pacemaker if it was deemed necessary. I have ordered preliminary fluids as well as ceftriaxone/azithromycin to treat the pneumonia. I have communicated the patie nt's care plans to admitting hospitalist Dr. Hammonds. She will continue to advance his care. I have also spoken on the phone with patient's son Roberto who is his POA who is aware an dis enroute to the hospital from [place] Departure - Departure Disposition: 66 [facility] DC/Xfer Clinical Impression: Junctional bradycardia, CATIA (acute kidney injury), NSTEMI (non-ST elevated myocardial infarction), Dehydration Pneumonia Qualifiers: Pneumonia type: due to unspecified organism Laterality: right Lung location: lower lobe of lung Qualified Code(s): J18.9 - Pneumonia, unspecified organism
[2022-04-02 11:58] LABS: BASOPHILS % (AUTO) 0.3 %; HCT - HEMATOCRIT 44.1 % (42.0-52.0); MEAN CORPUSCULAR HEMOGLOBIN 29.4 pg (27.0-31.0); MEAN CORPUSCULAR HGB CONC 31.7 g/dL (32.0-36.0); MEAN CORPUSCULAR VOLUME 92.6 fL (80.0-94.0); MONOCYTES % (AUTO) 7.1 %; NEUTROPHILS % (AUTO) 88.2 %; PLT - PLATELET COUNT 220 10^3/uL (130-450); RED BLOOD COUNT 4.76 10^6/uL (4.70-6.10); WHITE BLOOD COUNT 14.2 x10^3/uL (4.8-10.8)
[2022-04-02 12:09] LABS: SLIDE REVIEW? Indicated
[2022-04-02 12:10] LABS: ABNORMAL LYMPHS % (MANUAL) 0 %
[2022-04-02 12:12] LABS: LACTIC ACID, VENOUS 2.8 mmol/L (0.5-2.2)
[2022-04-02 12:19] LABS: ALBUMIN 3.5 g/dL (3.2-5.5); BILIRUBIN,TOTAL 0.9 mg/dL (0.2-1.0); CALCIUM 9.2 mg/dL (8.5-10.3); CREATININE 3.8 mg/dL (0.6-1.2); MAGNESIUM 2.3 mg/dL (1.7-2.8); PHOSPHORUS 3.8 mg/dL (2.5-4.6); POTASSIUM 3.8 mmol/L (3.5-5.0)
[2022-04-02] MEDS ORDERED: SODIUM CHLORIDE 0.9% 1,000 ML IV STA (12:24)
[2022-04-02] MEDS ORDERED: cefTRIAXone 1 GM VIAL IVP STA (12:24)
[2022-04-02] MEDS ORDERED: AZITHROMYCIN INJ 500 MG in SODIUM CHLORIDE 0.9% 250 ML IV STA (12:24)
[2022-04-02 12:28] LABS: BAND NEUTROPHILS % (MANUAL) 37 %; LYMPHOCYTES # (MANUAL) 0.1 10^3/uL (1.5-3.5); LYMPHOCYTES % (MANUAL) 1 %; METAMYELOCYTES % (MANUAL) 5 %; MONOCYTES # (MANUAL) 1.4 10^3/uL (0.0-1.0); NEUTROPHILS # (MANUAL) 11.9 10^3/uL (1.5-6.6)
[2022-04-02 12:29] LABS: DIFFERENTIAL COMMENT MANUAL DIFFERENTIAL
[2022-04-02 12:31] LABS: PLATELET ESTIMATE, MANUAL NORMAL (130-450,000) (NORMAL); PLATELET MORPHOLOGY NORMAL APPEARANCE (NORMAL); RBC MORPHOLOGY (MULTIPLE) 1+ ANISOCYTOSIS (NORMAL); WBC MORPHOLOGY (MULTIPLE) NORMAL APPEARANCE (NORMAL)
--- NOTE | 2022-04-02 12:43 | CT Report ---
PROCEDURE: CHEST WO INDICATIONS: 34 pound weight loss TECHNIQUE: Noncontrast 1mm axial images were acquired from the pulmonary apices to the posterior costophrenic an gles. Axial 5 mm soft tissue kernel reconstructions were performed as well as 8 mm axial MIP and cor onal and sagittal 5 mm reformations. For radiation dose reduction, the following was used: automate d exposure control, adjustment of mA and/or kV according to patient size. COMPARISON: CXR 08/20/2021. FINDINGS: Image quality: Excellent. Lungs and pleura: Extensive patchy consolidative opacity in the right lower lobe. There is a few othe r areas of minimal opacity. There is distal mucus airway plugging most pronounced in the right lower lobe and right middle lobe. The central airways are clear. Trace pleural fluid at the right lung base . No pneumothorax.. Mediastinum: Post median sternotomy and CABG. Heart size is normal. No pericardial effusion. No me diastinal adenopathy by size criteria. Thoracic aorta and central pulmonary arteries are normal in s ize. Moderate plaque. Esophagus is normal in caliber. Suture material at the proximal stomach. No hi atal hernia. Bones and chest wall: No suspicious bony lesions. No vertebral body compression fractures. No axil braulio or supraclavicular adenopathy by size criteria. The thyroid is normal in size and there are no incidental findings. Abdomen: Please see separately dictated same day CT abdomen and pelvis. IMPRESSION: 1. Right lower lobe patchy consolidative airspace opacity, moderate severity. Most consistent with a pneumonia. 2. Distal mucus airway plugging most pronounced in the right lower lobe. This could be due to aspirat ion or bronchitis. Reviewed by: Brad Zapien MD on 04/02/2022 12:42 PM PDT Approved by: Brad Zapien MD on 04/02/2022 12:42 PM PDT Station ID: [id number]
--- NOTE | 2022-04-02 12:59 | CT Report ---
PROCEDURE: Abdomen/Pelvis WO INDICATIONS: hx of sbo; 34 pound weight loss TECHNIQUE: Noncontrast 5 mm thick sections acquired from the diaphragms to the symphysis. 5 mm coronal and sagi ttal reformats were then performed. For radiation dose reduction, the following was used: automated exposure control, adjustment of mA and/or kV according to patient size. COMPARISON: Renal ultrasound 03/09/2022. CT abdomen and pelvis 08/20/2021. FINDINGS: Image quality: Excellent. Evaluation of the solid organs is limited without IV contrast. ABDOMEN: Lung bases: Please see separately dictated same day CT chest. Moderate opacity in the right lower lob e. Distal mucus airway plugging. Trace right pleural fluid. Trace air in the right atrium. Solid organs: Liver and spleen are normal in size. Gallbladder is absent Pancreas is normal in con tours. No thickening of the adrenal glands. Mid left kidney exophytic mass measuring approximately 2 .6 x 2 cm, (), previously 3.4 x 2.5 cm on 08/20/2021. This measures 2 cm in the craniocaudal posit ion, (05/14), previously 2.1 cm. No hydronephrosis. Suspect small left peripelvic cysts. No kidney sto flako. Peritoneum and bowel: Gastric sleeve. Suture material at the hepatic flexure colon. Liquid stool cont ents in the rectum with air-fluid level. No small bowel obstruction No free fluid or air. Nodes and vessels: No retroperitoneal or mesenteric adenopathy by size criteria. Abdominal aortic an eurysm measuring 3 cm, (04/29). Circumferential calcified atherosclerotic plaque. Miscellaneous: No ventral hernias. Lower abdominal wall scar. Cachexia. PELVIS: Genitourinary: No bladder stone. Miscellaneous: No inguinal hernias or adenopathy. Bones: No suspicious bony lesions. No vertebral body compression fractures. IMPRESSION: 1. Mid left kidney exophytic mass measuring 2.6 cm is stable to slightly decreased compared to CT fro m August 2021. Suspect renal cell carcinoma. 2. No adenopathy. No suspicious osseous lesion. 3. No bowel obstruction. No free fluid. 4. Abdominal aortic aneurysm measuring 3 cm. 5. Right lower lobe pneumonia. -Please see separately dictated same day CT chest. Reviewed by: Brad Zapien MD on 04/02/2022 12:57 PM PDT Approved by: Brad Zapien MD on 04/02/2022 12:57 PM PDT Station ID: [id number]
[2022-04-02] MEDS ORDERED: DEXTROSE 5%-0.9% NACL 1,000 ML IV SCH (14:00)
--- NOTE | 2022-04-02 14:33 | HISTORY & PHYSICAL EXAMINATION ---
Chief Complaint - Chief Complaint Chief Complaint: Weakness History of Present Illness - Admitted From Admitted From:: ED - History Obtained From History obtained from: ED provider and the patient - History of Present Illness HPI Comment/Other: This is an 81 y/o WM with Hx of CAD, Afib on aspirin, HTN, prior SBO and had lysis of adhesions in the 08/2021 admission. He lives at [facility] for about 2-3 mos, before that lived with son and grand-daughter in [place]. Two weeks ago, he caught COVID. In those 2 weeks he has developed poor appetite, a 34 pound weight loss, and progressively worsening weakness. He only drank 1/3 container of Ensure. It was painful to talk or swallow due to dry cracked oral mucosa, he said. and the grand-daughter at bedside confirms this. However, he was still taking his usual prescribed meds. Because of low blood pressures, EMS was called by the [facility] staff today. At the scene his systolic blood pressure was 60. No other details at the scene are known, as there is no ambulance run sheet available. He started to get IV crystalloids and blood pressure improved to 80 in the ambulance and by the time he was in the ED, his systolic blood pressure was 100. The work-up in the ED shows he has an elevated lactic acid of 2.8, elevated white blood count of 14.2, CATIA with BUN/creatinine of 90/3.8. CT imaging of abdomen and pelvis did not show any acute problems, but CT of chest showed a right lower lobe pneumonia and possible plugging. His troponin is 2400. His EKG shows junctional rhythm, with a ventricular escape rate in the 40s. His potassium was 3.8. He is testing COVID-negative today. The ED provider discussed management options with the patient. Patient wishes to be a DNR/DNI and requested to have last rights administered by a cloth bleaching range operator chief. A cloth bleaching range operator chief was called. The patient does want IV fluids and IV antibiotics. He does not want transfer, does not want a pacemaker, does not want pressor support. The ED provider then reached out to the hospitalist team for admission. History - Past Medical History Cardiovascular: reports: Hypertension, High cholesterol, Coronary artery disease, Atrial fibrillation Respiratory: reports: None Neuro: reports: None Endocrine/Autoimmune: reports: None GI: reports: GERD : reports: None, Other Musculoskeletal: reports: Osteoarthritis MRSA Hx?: No - Past Surgical History General: reports: Cholecystectomy, Gastric surgery - Family & Social History Family History Comment/Other: His mother had diabetes and in her 50s. His sister had 1 kidney resected. Reason unknown. Living arrangement: Assisted living Social History Notes: Patient does not consume alcohol, tobacco products or r ecreational substances. - Substance History Use: Uses substance without health or social issues: NONE - POLST Patient has POLST: No POLST Status: DNR Meds/Allgy - Home Medications Home Medications: Ambulatory Orders Medication Instructions Recorded Confirmed Aspirin Chewable [St Sandoval 81 mg PO DAILY 08/20/21 04/02/22 Aspirin] Atorvastatin [Lipitor] 40 mg PO DAILY 08/20/21 04/02/22 Lisinopril [Zestril] 10 mg PO DAILY 08/20/21 04/02/22 Pantoprazole Sodium 40 mg PO DAILY 08/20/21 04/02/22 Citalopram Hydrobromide 10 mg PO DAILY 04/02/22 04/02/22 [Citalopram HBr] Mirtazapine 15 mg PO HS 04/02/22 04/02/22 - Allergies Allergies/Adverse Reactions: Allergies Allergy/AdvReac Type Severity Reaction Status Date / Time No Known Drug Allergies Allergy Verified 04/02/22 12:03 Review of Systems - Constitutional Constitutional: reports: Fatigue, Weakness, Poor appetite, Weight loss - All Other Systems All Other Systems: reports: Reviewed and negative Exam - Vital Signs Vital Signs: Vital Signs x48h Temp Pulse Resp BP Pulse Ox 04/02/22 14:11 55 L 16 127/70 98 04/02/22 13:00 131/60 H 04/02/22 12:59 80 14 131/60 H 99 04/02/22 11:42 36 C L 47 L 21 106/67 98 04/02/22 11:37 47 L 21 106/67 98 - Physical Exam General Appearance: positive: No acute distress, Other (Cachectic, dry mucosa, temporal wasting) Eyes Bilateral: positive: Normal inspection ENT: positive: Dry mucous membranes, Other (Poor denition, yellow-brown with food, some teeth are missing. Voice is dry) Neck: positive: Nml inspection, Other (Thin, SCM muscle seen) Respiratory: positive: No respiratory distress, Breath sounds nml Cardiovascular: positive: No murmur, Bradycardia Abdomen: positive: Non-tender, No distention Skin: positive: Dry, Other (Cool hands and feet. Tenting of skin present.) Extremities: positive: Non-tender, No pedal edema Neurologic/Psychiatric: positive: Oriented x3 (Non-focal grossly.) Conclusion/Plan - Problem List (1) Sepsis Conclusion/Plan: Patient has elevated lactic acid level, hypotension, elevated white count of 14.2 and the source appears to be pneumonia. IV crystalloids at a rapid rate will continue. Because he may also have acute MA, the IV rate may not be per sepsis guidelines, to avoid CHF. Will follow the L.A. until it normalizes. Blood cultures were sent. Await results. Will order spuum cx, if he makes sputum. He will be put on empiric IV ceftriaxone and iv Zithromax (2) CAP (community acquired pneumonia) Conclusion/Plan: Will order culture of sputum, if he makes it. Will order empiric IV Zithromax and IV ceftriaxone. Will order Mucinex for pulmonary toilet and RT for helping (3) Hypotension Conclusion/Plan: This is likely multi-factorial: from sepsis, from dehydration/volume depletion given the loss of appetite since Covid, and from bradyarrhythmia (junctional rhythm). He may also be having an acute MA with systolic failure leading tuan poor cardiac output. He does not want use of iv prssores or a pacemaker. Will order iv fluids and administer carefully, not aggressively, to avoid pulminary edema. Will treat the underlying infection. Will check serial L.A. and troponins. Hold his HTN meds Prognosis is poor. (4) Junctional bradycardia Conclusion/Plan: He is not on any HR-slowing meds at home, therefore this is likely from an acute MA or intrinsic cardiac conduction system disease. A permanent pacemaker would be indicated, but he wants none, nor a transfer. He will ot be admitted to the ICU for temporary exteranal pacing either. Will hold HIS SSRI while he is getting Zithromax, since those could cause QT prolongation and lethal dysrhythmias. Will order Aminophylline for its HR-raising side effects and for bronchodilation given the mucus plugging and pneumonia. He is in critical condition and his overall prognosis is poor. (5) CATIA (acute kidney injury) Conclusion/Plan: This is likely from volume depletion, given the poor appetite since Covid. Will order iv hydration. Avoid nephrotoxins. Follow BMP daily (6) Dehydration Conclusion/Plan: As above. Start iv fluids (7) Elevated troponin Conclusion/Plan: This may be evidence of an acute MA or secondary to the sepsis (type 2 MA). Will cycle troponins til they peak. Will continue his daily aspirin and statin. Will order an Echo (however we have no Plastics Repairer here except thru , and today is Tue). (8) Atrial fibrillation Conclusion/Plan: He has underlying Afib, probably chronic and was on HR-slowing meds in the past. He is on aspirin as his stroke prophylaxis. Will continue this - Lab Results Fish Bones: 04/02/22 11:52 04/02/22 11:52 - Diagnostic Imaging Results Diagnostic Imaging Results: positive: Final report reviewed - Other Other Results/Comments: Attestation: The patient is expected to be discharged or transferred to another facility within 96 hours: Yes.
[2022-04-02 15:19] LABS: LACTIC ACID, VENOUS 2.6 mmol/L (0.5-2.2)
[2022-04-02] MEDS: SODIUM CHLORIDE FLUSH 0.9% 10 ML SYRINGE IVP SCH (16:20)
[2022-04-02] MEDS: guaiFENesin 600 MG TABLET PO SCH (16:32)
[2022-04-02] MEDS: AMINOPHYLLINE IV SCH (16:57)
[2022-04-02] MEDS: DEXTROSE 5% IV SCH (16:57)
--- NOTE | 2022-04-02 17:02 | PROVIDER PROGRESS NOTE ---
Hospitalist Cross-cover Note - Cross-Cover Note Cross-Cover Note: The patient was seen when he got to his Med Surg room and son and grand-daughter were at bedside. The diagnoses and the plan was explained to the patient and family members at bedside. The patient describes that he has a Shearing Shed Hand, has needed medications to slow his heart rate down in the past and that he was offered a pacemaker before but "was told that it would break down soon". He was last seen by Cardiology in [facility] and does not know the name of his Shearing Shed Hand. The granddaughter says that visit was in approximately early 2019, and none since then. When I discussed the reason for needing the pacemaker now, I wanted to confirm that the patient wants no intervention nr implant of a pacemaker and at this time. The patient said he was reconsidering it and that he does want a pacemaker. I asked the 2 family members if this is correct, and they both said that they want his wishes respect Impression: Junctional bradycardia arrhythmia. Plan: Transferred to the ICU. External pacemaker to be placed. Start IV aminophylline drip to affect a higher heart rate from the side effects of aminophylline. Will try to arrange for transfer to [place] or another hospital for higher level of care including implant of a permanent ventricular pacemaker.
[2022-04-02 19:01] LABS: LACTIC ACID, VENOUS 4.2 mmol/L (0.5-2.2)
[2022-04-02] MEDS: ATORVASTATIN 40 MG TABLET PO SCH (20:57)
[2022-04-02] MEDS: MIRTAZAPINE 15 MG TABLET PO SCH (20:57)
[2022-04-02] MEDS: HEPARIN 5,000 UNIT/ML VIAL SUBQ SCH (20:57)
[2022-04-02 22:13] LABS: LACTIC ACID, VENOUS 3.1 mmol/L (0.5-2.2)
[2022-04-02] MEDS: DEXTROSE 5%-0.9% NACL 1,000 ML IV SCH (22:41)
[2022-04-03] MEDS ORDERED: VANCOMYCIN INJ 1 GM in SODIUM CHLORIDE 0.9% 250 ML IV SCH (02:00)
[2022-04-03] MEDS: SODIUM CHLORIDE FLUSH 0.9% 10 ML SYRINGE IVP SCH ×3 (02:09→17:00)
[2022-04-03 04:33] LABS: BASOPHILS % (AUTO) 0.4 %; EOSINOPHILS % (AUTO) 0.9 %; HCT - HEMATOCRIT 38.6 % (42.0-52.0); HGB - HEMOGLOBIN 12.2 g/dL (14.0-18.0); LYMPHOCYTES % (AUTO) 4.6 %; MEAN CORPUSCULAR HGB CONC 31.6 g/dL (32.0-36.0); MEAN CORPUSCULAR VOLUME 91.9 fL (80.0-94.0); MEAN PLATELET VOLUME 11.4 fL (7.4-11.4); MONOCYTES % (AUTO) 7.8 %; NEUTROPHILS % (AUTO) 85.9 %; PLT - PLATELET COUNT 185 10^3/uL (130-450); RED CELL DISTRIBUTION WIDTH 14.5 % (12.0-15.0); WHITE BLOOD COUNT 10.1 x10^3/uL (4.8-10.8)
[2022-04-03 04:37] LABS: ABNORMAL LYMPHS % (MANUAL) 0 %
[2022-04-03 04:42] LABS: CALCIUM 8.6 mg/dL (8.5-10.3); CREATININE 3.1 mg/dL (0.6-1.2); POTASSIUM 3.7 mmol/L (3.5-5.0)
[2022-04-03 04:51] LABS: PHOSPHORUS 1.8 mg/dL (2.5-4.6)
[2022-04-03 05:11] LABS: BAND NEUTROPHILS % (MANUAL) 16 %; LYMPHOCYTES # (MANUAL) 1.2 10^3/uL (1.5-3.5); LYMPHOCYTES % (MANUAL) 12 %; MONOCYTES # (MANUAL) 0.1 10^3/uL (0.0-1.0); NEUTROPHILS # (MANUAL) 8.8 10^3/uL (1.5-6.6); PLATELET ESTIMATE, MANUAL NORMAL (130-450,000) (NORMAL); RBC MORPHOLOGY (MULTIPLE) NORMAL APPEARANCE (NORMAL)
[2022-04-03 05:12] LABS: DIFFERENTIAL COMMENT MANUAL DIFFERENTIAL
[2022-04-03] MEDS: PANTOPRAZOLE 40 MG TABLET PO SCH (06:19)
[2022-04-03 08:29] LABS: LACTIC ACID, VENOUS 2.9 mmol/L (0.5-2.2)
[2022-04-03] MEDS: NEUTRA-PHOS 250 MG TABLET PO SCH ×2 (08:32→10:36)
[2022-04-03] MEDS: ASPIRIN CHEW 81 MG TABLET PO SCH (08:32)
[2022-04-03] MEDS: cefTRIAXone 2 GM in SODIUM CHLORIDE 0.9% MINIBAG 100 ML IV SCH (08:33)
[2022-04-03] MEDS ORDERED: CITALOPRAM 10 MG TABLET PO SCH (09:00)
[2022-04-03] MEDS: guaiFENesin 600 MG TABLET PO SCH ×2 (09:05→17:35)
[2022-04-03] MEDS: AZITHROMYCIN INJ 500 MG in SODIUM CHLORIDE 0.9% 250 ML IV SCH (09:06)
[2022-04-03] MEDS: ethyl alcohoL 62% SWAB AMPULE NAS SCH ×2 (09:07→20:54)
[2022-04-03] MEDS: HEPARIN 5,000 UNIT/ML VIAL SUBQ SCH ×2 (10:36→20:53)
[2022-04-03] MEDS: DEXTROSE 5%-0.9% NACL 1,000 ML IV SCH ×2 (11:23→19:35)
[2022-04-03 11:57] LABS: BILIRUBIN,URINE NEGATIVE (NEGATIVE); GLUCOSE, URINE (UA) 100 mg/dL (NEGATIVE); KETONES,URINE (UA) NEGATIVE (NEGATIVE); LEUKOCYTE ESTERASE, URINE NEGATIVE (NEGATIVE); NITRITE,URINE NEGATIVE (NEGATIVE); OCCULT BLOOD,URINE TRACE-INTA (NEGATIVE); PROTEIN,URINE NEGATIVE (NEGATIVE); UROBILINOGEN,URINE 0.2 (NORMAL) E.U./dL (NORMAL)
--- NOTE | 2022-04-03 12:02 | PROVIDER PROGRESS NOTE ---
Subjective - Prog Note Date Prog Note Date: 04/03/22 - Subjective Pt reports feeling: Improved (Has more energy, is less difficult to swallow, still has a dry mouth. Does have a cough, denies any shortness of breath) Objective - Vital Signs/Intake & Output Reviewed Vital Signs: Yes Vital Signs: Vital Signs Temp Pulse Resp BP Pulse Ox 04/03/22 11:00 48 L 27 H 75/53 L 98 04/03/22 10:00 52 L 22 83/49 L 99 04/03/22 09:00 97 21 92/62 97 04/03/22 08:07 37.2 C 96 17 92/59 L 96 Intake & Output: Intake & Output 03/31/22 04/01/22 04/02/22 04/03/22 23:59 23:59 23:59 23:59 Intake Total 1997 2185.750 Output Total 200 Balance 1997 1985.750 - Objective General Appearance: positive: No acute distress Eyes Bilateral: positive: Normal inspection ENT: positive: Dry mucous membranes, Other (Teeth and tongue has been clean) Neck: positive: Nml inspection, No JVD Respiratory: positive: No respiratory distress, Breath sounds nml Cardiovascular: positive: No murmur, Irregularly irregular Abdomen: positive: Non-tender, Nml bowel sounds, No distention Skin: positive: Warm, Dry, Other ((+) tenting) Extremities: positive: Non-tender, No pedal edema Neurologic/Psychiatric: positive: Oriented x3 (Non-focal, his speech is quiet, voice dry. Generalized weakness and fatigue noted.) - Lab Results Fish Bones: 04/03/22 04:25 04/03/22 04:25 Other Labs: Lab Results x24hrs 04/03/22 04/03/22 04/03/22 Range/Units 07:58 04:25 04:25 WBC (4.8-10.8) x10^3/uL RBC (4.70-6.10) 10^6/uL Hgb (14.0-18.0) g/dL Hct (42.0-52.0) % MCV (80.0-94.0) fL MCH (27.0-31.0) pg MCHC (32.0-36.0) g/dL RDW (12.0-15.0) % Plt Count (130-450) 10^3/uL MPV (7.4-11.4) fL Neut # (Auto) Lymph # (Auto) [place] # (Auto) Eos # (Auto) Baso # (Auto) Absolute Nucleated RBC Total Counted Band Neuts % (Manual) (0 - 10) % Abnorm Lymph % (Manual) % Metamyelocytes % ( - 0) % Nucleated RBC % Neutrophils # (Manual) (1.5-6.6) 10^3/uL Lymphocytes # (Manual) (1.5-3.5) 10^3/uL Monocytes # (Manual) (0.0-1.0) 10^3/uL Eosinophils # (Manual) (0-0.7) 10^3/uL Basophils # (Manual) (0-0.1) 10^3/uL Differential Comment Manual Slide Review WBC Morphology (NORMAL) Platelet Estimate (NORMAL) Platelet Morphology (NORMAL) RBC Morph Micro Appear (NORMAL) Sodium (135-145) mmol/L Potassium (3.5-5.0) mmol/L Chloride (101-111) mmol/L Carbon Dioxide (21-32) mmol/L Anion Gap (6-13) BUN (6-20) mg/dL Creatinine (0.6-1.2) mg/dL Estimated GFR (MDRD) (>89) Glucose (70-100) mg/dL Lactic Acid 2.9 H 2.0 (0.5-2.2) mmol/L Calcium (8.5-10.3) mg/dL Phosphorus 1.8 L (2.5-4.6) mg/dL Magnesium 2.0 (1.7-2.8) mg/dL Total Bilirubin (0.2-1.0) mg/dL AST (10-42) IU/L ALT (10-60) IU/L Alkaline Phosphatase (42-121) IU/L Troponin I High Sens (2.3-19.7) ng/L Total Protein (6.7-8.2) g/dL Albumin (3.2-5.5) g/dL Globulin (2.1-4.2) g/dL Albumin/Globulin Ratio (1.0-2.2) Nasal Screen MRSA (PCR) (NEGATIVE) SARS-CoV-2 (PCR) 04/03/22 04/03/22 04/03/22 Range/Units 04:25 04:25 01:03 WBC 10.1 (4.8-10.8) x10^3/uL RBC 4.20 L (4.70-6.10) 10^6/uL Hgb 12.2 L (14.0-18.0) g/dL Hct 38.6 L (42.0-52.0) % MCV 91.9 (80.0-94.0) fL MCH 29.0 (27.0-31.0) pg MCHC 31.6 L (32.0-36.0) g/dL RDW 14.5 (12.0-15.0) % Plt Count 185 (130-450) 10^3/uL MPV 11.4 (7.4-11.4) fL Neut # (Auto) Not Reportable Lymph # (Auto) Not Reportable [place] # (Auto) Not Reportable Eos # (Auto) Not Reportable Baso # (Auto) Not Reportable Absolute Nucleated RBC Not Reportable Total Counted 100 Band Neuts % (Manual) 16 H (0 - 10) % Abnorm Lymph % (Manual) 0 % Metamyelocytes % ( - 0) % Nucleated RBC % Not Reportable Neutrophils # (Manual) 8.8 H (1.5-6.6) 10^3/uL Lymphocytes # (Manual) 1.2 L (1.5-3.5) 10^3/uL Monocytes # (Manual) 0.1 (0.0-1.0) 10^3/uL Eosinophils # (Manual) 0.0 (0-0.7) 10^3/uL Basophils # (Manual) 0.0 (0-0.1) 10^3/uL Differential Comment MANUAL DIFFERENTIAL Manual Slide Review WBC Morphology (NORMAL) Platelet Estimate NORMAL (130-450,000) (NORMAL) Platelet Morphology (NORMAL) RBC Morph Micro Appear NORMAL APPEARANCE (NORMAL) Sodium 142 (135-145) mmol/L Potassium 3.7 (3.5-5.0) mmol/L Chloride 111 (101-111) mmol/L Carbon Dioxide 20 L (21-32) mmol/L Anion Gap 11.0 (6-13) BUN 81 H* (6-20) mg/dL Creatinine 3.1 H (0.6-1.2) mg/dL Estimated GFR (MDRD) 19 L (>89) Glucose 132 H (70-100) mg/dL Lactic Acid 3.0 H* (0.5-2.2) mmol/L Calcium 8.6 (8.5-10.3) mg/dL Phosphorus (2.5-4.6) mg/dL Magnesium (1.7-2.8) mg/dL Total Bilirubin (0.2-1.0) mg/dL AST (10-42) IU/L ALT (10-60) IU/L Alkaline Phosphatase (42-121) IU/L Troponin I High Sens (2.3-19.7) ng/L Total Protein (6.7-8.2) g/dL Albumin (3.2-5.5) g/dL Globulin (2.1-4.2) g/dL Albumin/Globulin Ratio (1.0-2.2) Nasal Screen MRSA (PCR) (NEGATIVE) SARS-CoV-2 (PCR) 04/02/22 04/02/22 04/02/22 Range/Units 21:51 19:58 18:35 WBC (4.8-10.8) x10^3/uL RBC (4.70-6.10) 10^6/uL Hgb (14.0-18.0) g/dL Hct (42.0-52.0) % MCV (80.0-94.0) fL MCH (27.0-31.0) pg MCHC (32.0-36.0) g/dL RDW (12.0-15.0) % Plt Count (130-450) 10^3/uL MPV (7.4-11.4) fL Neut # (Auto) Lymph # (Auto) [place] # (Auto) Eos # (Auto) Baso # (Auto) Absolute Nucleated RBC Total Counted Band Neuts % (Manual) (0 - 10) % Abnorm Lymph % (Manual) % Metamyelocytes % ( - 0) % Nucleated RBC % Neutrophils # (Manual) (1.5-6.6) 10^3/uL Lymphocytes # (Manual) (1.5-3.5) 10^3/uL Monocytes # (Manual) (0.0-1.0) 10^3/uL Eosinophils # (Manual) (0-0.7) 10^3/uL Basophils # (Manual) (0-0.1) 10^3/uL Differential Comment Manual Slide Review WBC Morphology (NORMAL) Platelet Estimate (NORMAL) Platelet Morphology (NORMAL) RBC Morph Micro Appear (NORMAL) Sodium (135-145) mmol/L Potassium (3.5-5.0) mmol/L Chloride (101-111) mmol/L Carbon Dioxide (21-32) mmol/L Anion Gap (6-13) BUN (6-20) mg/dL Creatinine (0.6-1.2) mg/dL Estimated GFR (MDRD) (>89) Glucose (70-100) mg/dL Lactic Acid 3.1 H* 4.2 H* (0.5-2.2) mmol/L Calcium (8.5-10.3) mg/dL Phosphorus (2.5-4.6) mg/dL Magnesium (1.7-2.8) mg/dL Total Bilirubin (0.2-1.0) mg/dL AST (10-42) IU/L ALT (10-60) IU/L Alkaline Phosphatase (42-121) IU/L Troponin I High Sens (2.3-19.7) ng/L Total Protein (6.7-8.2) g/dL Albumin (3.2-5.5) g/dL Globulin (2.1-4.2) g/dL Albumin/Globulin Ratio (1.0-2.2) Nasal Screen MRSA (PCR) POSITIVE A* (NEGATIVE) SARS-CoV-2 (PCR) 04/02/22 04/02/22 04/02/22 Range/Units 15:03 14:14 14:14 WBC (4.8-10.8) x10^3/uL RBC (4.70-6.10) 10^6/uL Hgb (14.0-18.0) g/dL Hct (42.0-52.0) % MCV (80.0-94.0) fL MCH (27.0-31.0) pg MCHC (32.0-36.0) g/dL RDW (12.0-15.0) % Plt Count (130-450) 10^3/uL MPV (7.4-11.4) fL Neut # (Auto) Lymph # (Auto) [place] # (Auto) Eos # (Auto) Baso # (Auto) Absolute Nucleated RBC Total Counted Band Neuts % (Manual) (0 - 10) % Abnorm Lymph % (Manual) % Metamyelocytes % ( - 0) % Nucleated RBC % Neutrophils # (Manual) (1.5-6.6) 10^3/uL Lymphocytes # (Manual) (1.5-3.5) 10^3/uL Monocytes # (Manual) (0.0-1.0) 10^3/uL Eosinophils # (Manual) (0-0.7) 10^3/uL Basophils # (Manual) (0-0.1) 10^3/uL Differential Comment Manual Slide Review WBC Morphology (NORMAL) Platelet Estimate (NORMAL) Platelet Morphology (NORMAL) RBC Morph Micro Appear (NORMAL) Sodium (135-145) mmol/L Potassium (3.5-5.0) mmol/L Chloride (101-111) mmol/L Carbon Dioxide (21-32) mmol/L Anion Gap (6-13) BUN (6-20) mg/dL Creatinine (0.6-1.2) mg/dL Estimated GFR (MDRD) (>89) Glucose (70-100) mg/dL Lactic Acid 2.6 H 2.6 H (0.5-2.2) mmol/L Calcium (8.5-10.3) mg/dL Phosphorus (2.5-4.6) mg/dL Magnesium (1.7-2.8) mg/dL Total Bilirubin (0.2-1.0) mg/dL AST (10-42) IU/L ALT (10-60) IU/L Alkaline Phosphatase (42-121) IU/L Troponin I High Sens 2784.9 H* (2.3-19.7) ng/L Total Protein (6.7-8.2) g/dL Albumin (3.2-5.5) g/dL Globulin (2.1-4.2) g/dL Albumin/Globulin Ratio (1.0-2.2) Nasal Screen MRSA (PCR) (NEGATIVE) SARS-CoV-2 (PCR) 04/02/22 04/02/22 04/02/22 Range/Units 11:53 11:52 11:52 WBC (4.8-10.8) x10^3/uL RBC (4.70-6.10) 10^6/uL Hgb (14.0-18.0) g/dL Hct (42.0-52.0) % MCV (80.0-94.0) fL MCH (27.0-31.0) pg MCHC (32.0-36.0) g/dL RDW (12.0-15.0) % Plt Count (130-450) 10^3/uL MPV (7.4-11.4) fL Neut # (Auto) Lymph # (Auto) [place] # (Auto) Eos # (Auto) Baso # (Auto) Absolute Nucleated RBC Total Counted Band Neuts % (Manual) (0 - 10) % Abnorm Lymph % (Manual) % Metamyelocytes % ( - 0) % Nucleated RBC % Neutrophils # (Manual) (1.5-6.6) 10^3/uL Lymphocytes # (Manual) (1.5-3.5) 10^3/uL Monocytes # (Manual) (0.0-1.0) 10^3/uL Eosinophils # (Manual) (0-0.7) 10^3/uL Basophils # (Manual) (0-0.1) 10^3/uL Differential Comment Manual Slide Review WBC Morphology (NORMAL) Platelet Estimate (NORMAL) Platelet Morphology (NORMAL) RBC Morph Micro Appear (NORMAL) Sodium (135-145) mmol/L Potassium (3.5-5.0) mmol/L Chloride (101-111) mmol/L Carbon Dioxide (21-32) mmol/L Anion Gap (6-13) BUN (6-20) mg/dL Creatinine (0.6-1.2) mg/dL Estimated GFR (MDRD) (>89) Glucose (70-100) mg/dL Lactic Acid 2.8 H (0.5-2.2) mmol/L Calcium (8.5-10.3) mg/dL Phosphorus (2.5-4.6) mg/dL Magnesium (1.7-2.8) mg/dL Total Bilirubin (0.2-1.0) mg/dL AST (10-42) IU/L ALT (10-60) IU/L Alkaline Phosphatase (42-121) IU/L Troponin I High Sens 2434.9 H* (2.3-19.7) ng/L Total Protein (6.7-8.2) g/dL Albumin (3.2-5.5) g/dL Globulin (2.1-4.2) g/dL Albumin/Globulin Ratio (1.0-2.2) Nasal Screen MRSA (PCR) (NEGATIVE) SARS-CoV-2 (PCR) NOT DETECTED 04/02/22 04/02/22 Range/Units 11:52 11:52 WBC 14.2 H (4.8-10.8) x10^3/uL RBC 4.76 (4.70-6.10) 10^6/uL Hgb 14.0 (14.0-18.0) g/dL Hct 44.1 (42.0-52.0) % MCV 92.6 (80.0-94.0) fL MCH 29.4 (27.0-31.0) pg MCHC 31.7 L (32.0-36.0) g/dL RDW 14.0 (12.0-15.0) % Plt Count 220 (130-450) 10^3/uL MPV 11.0 (7.4-11.4) fL Neut # (Auto) Not Reportable Lymph # (Auto) Not Reportable [place] # (Auto) Not Reportable Eos # (Auto) Not Reportable Baso # (Auto) Not Reportable Absolute Nucleated RBC Not Reportable Total Counted 100 Band Neuts % (Manual) 37 H (0 - 10) % Abnorm Lymph % (Manual) 0 % Metamyelocytes % 5 H ( - 0) % Nucleated RBC % Not Reportable Neutrophils # (Manual) 11.9 H (1.5-6.6) 10^3/uL Lymphocytes # (Manual) 0.1 L (1.5-3.5) 10^3/uL Monocytes # (Manual) 1.4 H (0.0-1.0) 10^3/uL Eosinophils # (Manual) 0.0 (0-0.7) 10^3/uL Basophils # (Manual) 0.0 (0-0.1) 10^3/uL Differential Comment MANUAL DIFFERENTIAL Manual Slide Review Indicated WBC Morphology NORMAL APPEARANCE (NORMAL) Platelet Estimate NORMAL (130-450,000) (NORMAL) Platelet Morphology NORMAL APPEARANCE (NORMAL) RBC Morph Micro Appear 1+ ANISOCYTOSIS (NORMAL) Sodium 143 (135-145) mmol/L Potassium 3.8 (3.5-5.0) mmol/L Chloride 106 (101-111) mmol/L Carbon Dioxide 20 L (21-32) mmol/L Anion Gap 17.0 H (6-13) BUN 90 H* (6-20) mg/dL Creatinine 3.8 H (0.6-1.2) mg/dL Estimated GFR (MDRD) 15 L (>89) Glucose 159 H (70-100) mg/dL Lactic Acid (0.5-2.2) mmol/L Calcium 9.2 (8.5-10.3) mg/dL Phosphorus 3.8 (2.5-4.6) mg/dL Magnesium 2.3 (1.7-2.8) mg/dL Total Bilirubin 0.9 (0.2-1.0) mg/dL AST 24 (10-42) IU/L ALT 17 (10-60) IU/L Alkaline Phosphatase 58 (42-121) IU/L Troponin I High Sens (2.3-19.7) ng/L Total Protein 7.0 (6.7-8.2) g/dL Albumin 3.5 (3.2-5.5) g/dL Globulin 3.5 (2.1-4.2) g/dL Albumin/Globulin Ratio 1.0 (1.0-2.2) Nasal Screen MRSA (PCR) (NEGATIVE) SARS-CoV-2 (PCR) Assessment/Plan - Problem List (1) Sepsis Impression: This is improving. His blood pressure is better. WBC down from 14 to 10. His lactic acid corrected but then has gone up again to 2.9. The etiology appears to be a lobar pneumonia. Continue with IV fluids. Follow lactic acid till normalized. Treat the underlying problem with antibiotics (2) CAP (community acquired pneumonia) Impression: There is a right lower lobe pneumonia on imaging. Now he is making sputum, after hydration has been started. The patient has been started on empiric Zithromax and IV ceftriaxone. Blood cultures were drawn, and are negative to date. Await cx results (3) Hypotension Impression: He was started on IV fluids at admission because of the sepsis. Because of elevated troponins and BNP, the resuscitation with crystalloids was not aggressive. His blood pressure though has improved to the 90-1 20 range systolic. A bedside Echocardiogram was performed by myself (as a Board-certified Financial Advisor Trainee, credentialed in Echo here). The Echo showed: Normal left atrial size, right atrium poorly seen. Normal aortic root diameter with mural atherosclerosis. Normal left ventricular size and wall thickness. LV apex severe hypokinesis, other wall motion normal, LVEF 55 to 60%. Doppler shows mild LV diastolic dys function. Right ventricle probably normal in size and function, the RV is less well seen. Doppler of the valves shows trace mitral regurgitation, probably normal aortic valve and tricuspid valve function. The pulmonic valve was never well seen. No pericardial effusion noted. We will increase his IV hydration rate. Hold any of his home blood pressure meds. Will continue to treat the underlying infection which is causing sepsis (4) Junctional bradycardia Impression: At presentation, when in the ED, the patient was offered transfer for pacemaker and he refused this, wanted only IV antibiotics and IV fluids and wanted last rights. When he is admitted to [facility], he change his mind and stated he wanted to be transferred for pacemaker. Therefore he was transferred to the ICU with external patch electrodes put on, and more aggressive management started. IV aminophylline was started to obtain the side effect of tachycardia. This has resulted in less junctional bradycardia, and more A. fib, ventricular rates are between 50 and 90. A permanent pacemaker is indicated with this underlying problem of junctional bradycardia. We contacted 2 facilities for transfer (since he has been admitted). In [place], at [facility], they said they would not accept him. At [facility] he is 13th on the list. Will try to contact more hospitals for pacemaker implant. Undoubtedly, the providers at those facilities will want his underlying infection treated first. I updated the patient and the son from [place], who is at bedside, regarding this plan today Remain in the ICU. External pacer patches applied. (5) Atrial fibrillation Impression: It was learned from the son from [place], that the patient has had some type of ablation done 1 year ago in [facility]. There is also a prior history of A. fib. The patient was on no heart rate slowing medications before this hospitalization. We will continue on telemetry. Continue with his daily aspirin as his stroke prophylaxis. An Echocardiogram was done at bedside today and this showed a preserved LVEF. Therefore this patient's CHADS2 score = 1 (age>75), and aspirin is planned to be continued, no DOAC (6) CATIA (acute kidney injury) Impression: BUN/creatinine are improving with IV fluids. He still is clinically very dehydrated. We will continue with IV rehydration. Promote p.o. fluid intake now that his mouth is last cracked and painful. Avoid nephrotoxins. Follow BMP daily (7) Dehydration Impression: This patient described almost no p.o. intake for about 2 weeks and claims he had a 34 pound weight loss in 2 weeks. Will continue with IV fluids. We will also request nutrition consult regarding malnutrition screen and any recommendations for his diet (8) Hx of coronary artery disease Impression: The patient's son from [place] is at bedside. The patient used to live with this son and had all his Cardiology care in [place]. The patient is more alert today and remembers and reports that he had yearly stress tests to check his CABGs. The son was able to show me reports (on his cell phone) of his last stress test done at [place] in early 2020; the patient had a Lexiscan pharm aceutical nuclear stress test and the nuclear scan showed 1% to 3% ischemic burden, and overall normal EF it reported (no % was given). We will continue with the patient's daily aspirin and eventually restart other medicines, when BP and diet are better. (9) Elevated troponin Impression: His troponins are elevated but flat, signifying no acute [place].. His BNPs are also elevated but flat, and because of this, his IV hydration was gentle up until now. I performed a bedside Echo The Echo showed: Normal left atrial size, right atrium poorly seen. Normal aortic root diameter with mural atherosclerosis. Normal left ventricular size and wall thickness. LV apex severe hypokinesis, other wall motion normal, LVEF 55 to 60%. Doppler shows mild LV diastolic dy sfunction. Right ventricle probably normal in size and function, the RV is less well seen. Doppler of the valves shows trace mitral regurgitation, probably normal aortic valve and tricuspid valve function. The pulmonic valve was never well seen. No pericardial effusion noted. (10) Positive nasal culture for methicillin resistant Staphylococcus aureus Impression: Since he may also have systemic MRSA, IV vancomycin has been added to his antibiotics. He will be treated with ethanol nasal swabs as well. Isolation until then.
[2022-04-03 12:14] LABS: BACTERIA,URINE None Seen /HPF (None Seen); CLARITY,URINE SL. CLOUDY (CLEAR); RBC,URINE 0-5 /HPF (0-5); SQUAMOUS EPITHELIAL CELL,UR RARE Squamous (<= Few)
[2022-04-03 12:15] LABS: AMORPHOUS SEDIMENT,UR Rare /LPF; CASTS, URINE 3-5 Granular Casts /LPF
[2022-04-03 12:29] LABS: LACTIC ACID, VENOUS 2.9 mmol/L (0.5-2.2)
[2022-04-03 18:55] LABS: LACTIC ACID, VENOUS 2.1 mmol/L (0.5-2.2)
[2022-04-03] MEDS: AMINOPHYLLINE IV SCH (20:34)
[2022-04-03] MEDS: DEXTROSE 5% IV SCH (20:34)
[2022-04-03] MEDS: MIRTAZAPINE 15 MG TABLET PO SCH (20:54)
[2022-04-03] MEDS: ATORVASTATIN 40 MG TABLET PO SCH (20:54)
[2022-04-04] MEDS: SODIUM CHLORIDE FLUSH 0.9% 10 ML SYRINGE IVP SCH ×3 (03:59→18:15)
[2022-04-04] MEDS: DEXTROSE 5%-0.9% NACL 1,000 ML IV SCH (03:59)
[2022-04-04 05:10] LABS: BASOPHILS % (AUTO) 0.2 %; EOSINOPHILS % (AUTO) 0.1 %; HCT - HEMATOCRIT 33.8 % (42.0-52.0); HGB - HEMOGLOBIN 10.8 g/dL (14.0-18.0); LYMPHOCYTES % (AUTO) 4.8 %; MEAN CORPUSCULAR HEMOGLOBIN 29.3 pg (27.0-31.0); MEAN CORPUSCULAR VOLUME 91.6 fL (80.0-94.0); MEAN PLATELET VOLUME 11.5 fL (7.4-11.4); MONOCYTES % (AUTO) 4.3 %; NEUTROPHILS % (AUTO) 90.3 %; PLT - PLATELET COUNT 164 10^3/uL (130-450); RED BLOOD COUNT 3.69 10^6/uL (4.70-6.10); RED CELL DISTRIBUTION WIDTH 14.3 % (12.0-15.0); WHITE BLOOD COUNT 8.8 x10^3/uL (4.8-10.8)
[2022-04-04 05:22] LABS: CALCIUM 8.1 mg/dL (8.5-10.3); CREATININE 2.4 mg/dL (0.6-1.2); MAGNESIUM 1.7 mg/dL (1.7-2.8); PHOSPHORUS 1.6 mg/dL (2.5-4.6); POTASSIUM 2.8 mmol/L (3.5-5.0)
[2022-04-04 05:23] LABS: ABNORMAL LYMPHS % (MANUAL) 0 %
[2022-04-04 05:46] LABS: BAND NEUTROPHILS % (MANUAL) 15 %; DIFFERENTIAL COMMENT MANUAL DIFFERENTIAL; LYMPHOCYTES # (MANUAL) 0.5 10^3/uL (1.5-3.5); LYMPHOCYTES % (MANUAL) 6 %; MONOCYTES # (MANUAL) 0.3 10^3/uL (0.0-1.0); PLATELET ESTIMATE, MANUAL NORMAL (130-450,000) (NORMAL); RBC MORPHOLOGY (MULTIPLE) NORMAL APPEARANCE (NORMAL)
[2022-04-04] MEDS: NEUTRA-PHOS 250 MG TABLET PO SCH ×2 (06:55→10:55)
[2022-04-04] MEDS: PANTOPRAZOLE 40 MG TABLET PO SCH (06:55)
[2022-04-04] MEDS ORDERED: MAGNESIUM OXIDE 400 MG TABLET PO ONE (07:00)
[2022-04-04] MEDS: D5.45NS W/20 MEQ KCL 1,000 ML IV SCH ×2 (08:11→18:38)
[2022-04-04] MEDS: cefTRIAXone 2 GM in SODIUM CHLORIDE 0.9% MINIBAG 100 ML IV SCH (08:59)
[2022-04-04] MEDS: AZITHROMYCIN INJ 500 MG in SODIUM CHLORIDE 0.9% 250 ML IV SCH (09:30)
[2022-04-04] MEDS: ASPIRIN CHEW 81 MG TABLET PO SCH (10:56)
[2022-04-04] MEDS: guaiFENesin 600 MG TABLET PO SCH ×2 (10:56→18:14)
[2022-04-04] MEDS: ethyl alcohoL 62% SWAB AMPULE NAS SCH ×2 (10:56→20:49)
[2022-04-04] MEDS: HEPARIN 5,000 UNIT/ML VIAL SUBQ SCH ×2 (10:58→20:49)
[2022-04-04 13:57] LABS: CALCIUM 8.3 mg/dL (8.5-10.3); CREATININE 2.2 mg/dL (0.6-1.2); POTASSIUM 2.8 mmol/L (3.5-5.0)
--- NOTE | 2022-04-04 14:12 | PROVIDER PROGRESS NOTE ---
Objective - Vital Signs/Intake & Output Reviewed Vital Signs: Yes Vital Signs: Vital Signs Pulse Resp BP Pulse Ox 04/04/22 13:00 71 22 122/74 97 04/04/22 12:00 68 19 134/66 H 97 04/04/22 11:00 67 21 137/76 H 97 Intake & Output: Intake & Output 04/01/22 04/02/22 04/03/22 04/04/22 23:59 23:59 23:59 23:59 Intake Total 1997 3535.875 1703.25 Output Total 700 250 Balance 1997 2835.875 1453.25 - Objective General Appearance: positive: No acute distress, Alert Eyes Bilateral: positive: Normal inspection, EOMI ENT: positive: No signs of dehydration Neck: positive: Nml inspection, No JVD Respiratory: positive: No respiratory distress, Breath sounds nml Cardiovascular: positive: No murmur Abdomen: positive: Non-tender, Nml bowel sounds, No distention Skin: positive: Warm, Dry Extremities: positive: Non-tender, No pedal edema Neurologic/Psychiatric: positive: Oriented x3 (Non-focal) - Lab Results Fish Bones: 04/04/22 04:10 04/04/22 13:40 Other Labs: Lab Results x24hrs 04/04/22 04/04/22 04/04/22 Range/Units 13:40 13:40 04:10 WBC (4.8-10.8) x10^3/uL RBC (4.70-6.10) 10^6/uL Hgb (14.0-18.0) g/dL Hct (42.0-52.0) % MCV (80.0-94.0) fL MCH (27.0-31.0) pg MCHC (32.0-36.0) g/dL RDW (12.0-15.0) % Plt Count (130-450) 10^3/uL MPV (7.4-11.4) fL Neut # (Auto) Lymph # (Auto) [place] # (Auto) Eos # (Auto) Baso # (Auto) Absolute Nucleated RBC Total Counted Band Neuts % (Manual) (0 - 10) % Abnorm Lymph % (Manual) % Nucleated RBC % Neutrophils # (Manual) (1.5-6.6) 10^3/uL Lymphocytes # (Manual) (1.5-3.5) 10^3/uL Monocytes # (Manual) (0.0-1.0) 10^3/uL Eosinophils # (Manual) (0-0.7) 10^3/uL Basophils # (Manual) (0-0.1) 10^3/uL Differential Comment Platelet Estimate (NORMAL) RBC Morph Micro Appear (NORMAL) Sodium 145 146 H (135-145) mmol/L Potassium 2.8 L 2.8 L (3.5-5.0) mmol/L Chloride 113 H 116 H (101-111) mmol/L Carbon Dioxide 20 L 18 L (21-32) mmol/L Anion Gap 12.0 12.0 (6-13) BUN 61 H 69 H (6-20) mg/dL Creatinine 2.2 H 2.4 H (0.6-1.2) mg/dL Estimated GFR (MDRD) 29 L 26 L (>89) Glucose 149 H 169 H (70-100) mg/dL Lactic Acid (0.5-2.2) mmol/L Calcium 8.3 L 8.1 L (8.5-10.3) mg/dL Phosphorus 1.6 L (2.5-4.6) mg/dL Magnesium 1.8 1.7 (1.7-2.8) mg/dL 04/04/22 04/03/22 04/03/22 Range/Units 04:10 18:35 15:25 WBC 8.8 (4.8-10.8) x10^3/uL RBC 3.69 L (4.70-6.10) 10^6/uL Hgb 10.8 L (14.0-18.0) g/dL Hct 33.8 L (42.0-52.0) % MCV 91.6 (80.0-94.0) fL MCH 29.3 (27.0-31.0) pg MCHC 32.0 (32.0-36.0) g/dL RDW 14.3 (12.0-15.0) % Plt Count 164 (130-450) 10^3/uL MPV 11.5 H (7.4-11.4) fL Neut # (Auto) Not Reportable Lymph # (Auto) Not Reportable [place] # (Auto) Not Reportable Eos # (Auto) Not Reportable Baso # (Auto) Not Reportable Absolute Nucleated RBC Not Reportable Total Counted 100 Band Neuts % (Manual) 15 H (0 - 10) % Abnorm Lymph % (Manual) 0 % Nucleated RBC % Not Reportable Neutrophils # (Manual) 8.0 H (1.5-6.6) 10^3/uL Lymphocytes # (Manual) 0.5 L (1.5-3.5) 10^3/uL Monocytes # (Manual) 0.3 (0.0-1.0) 10^3/uL Eosinophils # (Manual) 0.0 (0-0.7) 10^3/uL Basophils # (Manual) 0.0 (0-0.1) 10^3/uL Differential Comment MANUAL DIFFERENTIAL Platelet Estimate NORMAL (130-450,000) (NORMAL) RBC Morph Micro Appear NORMAL APPEARANCE (NORMAL) Sodium (135-145) mmol/L Potassium (3.5-5.0) mmol/L Chloride (101-111) mmol/L Carbon Dioxide (21-32) mmol/L Anion Gap (6-13) BUN (6-20) mg/dL Creatinine (0.6-1.2) mg/dL Estimated GFR (MDRD) (>89) Glucose (70-100) mg/dL Lactic Acid 2.1 3.0 H* (0.5-2.2) mmol/L Calcium (8.5-10.3) mg/dL Phosphorus (2.5-4.6) mg/dL Magnesium (1.7-2.8) mg/dL Assessment/Plan - Problem List (1) CAP (community acquired pneumonia) Impression: There is a right lower lobe pneumonia on imaging. Now he is making sputum, after hydration was been started. The patient has been started on empiric Zithromax and IV ceftriaxone. Blood cultures were drawn, and are negative to date. Await cx results to [facility] Will assure he is on Mucinex and probiotics (2) Junctional bradycardia Impression: At presentation, when in the ED, the patient was offered transfer for pacemaker and he refused this, wanted only IV antibiotics and IV fluids and wanted last rights. When he is admitted to [facility], he change his mind and stated he wanted to be transferred for pacemaker. Therefore he was transferred to the ICU with external patch electrodes put on, and more aggressive management started. IV aminophylline was started to obtain the side effect of tachycardia. This has resulted in less junctional bradycardia, and more A. fib, ventricular rates were between 80-100 and th rate has been halved. Will check a Theophylline level A permanent pacemaker is indicated with this underlying problem of junctional bradycardia. We contacted 2 facilities for transfer (since he has been admitted). In [place], at [facility], they said they would not accept him. At [facility] he is 13th on the list. Undoubtedly, the providers at all facilities will want his underlying infection treated first. Remain in the ICU. External pacer patches are in place in case external pacing is needed. I performed a bedside Echo yesterday The Echo showed: Normal left atrial size, right atrium poorly seen. Normal aortic root diameter with mural atherosclerosis. Normal left ventricular size and wall thickness. LV apex severe hypokinesis, other wall motion normal, LVEF 55 to 60%. Doppler shows mild LV diastolic dysfunction. Right ventricle probably normal in size and function, the RV is less well seen. Doppler of the valves shows trace mitral regurgitation, probably normal aortic valve and tricuspid valve function. The pulmonic valve was never well seen. No pericardial effusion noted. (3) Atrial fibrillation Impression: It was learned from the son from [place], that the patient has had some type of ablation done 1 year ago in [facility]. There is also a prior history of A. fib. The patient was on no heart rate slowing medications before this hospitalization. We will continue on telemetry. Continue with his daily aspirin as his stroke prophylaxis. An Echocardiogram was done at bedside yesterday and this showed a preserved LVEF. Therefore this patient's CHADS2 score = 1 (age>75), and aspirin is planned to be continued, no DOAC (4) CATIA (acute kidney injury) Impression: BUN/creatinine are improving daily with IV fluids. He still is clinically dehydrated. We will continue with IV hydration. Promote p.o. fluid intake now that hisoral mucosa is not cracked and painful. Avoid nephrotoxins. Follow BMP daily (5) Hypokalemia due to inadequate potassium intake Impression: He had reported taking in nearly no oral intake for 2 weeks when COVID started and he developed no appetite. Will replace with IV and p.o. potassium, carefully, because of his continued elevated creatinine. (6) Dehydration Impression: This patient described almost no p.o. intake for about 2 weeks and claims he had a 34 pound weight loss in 2 weeks. Will continue with IV fluids. We will also request nutrition consult regarding malnutrition screen and any recommendations for his diet (7) Hx of coronary artery disease Impression: The patient's son from [place] was at bedside and provided details of the pt's Hx.. The patient used to live with this son and had all his Cardiology care in [place]. The patient reports that he had yearly stress tests to check his CAB Gs. The son was able to show me reports. The patient had a Lex[employer] nuclear stress test in early 2020 and the nuclear scan showed 1% to 3% ischemic burden, and overall normal EF it reported (no % was given). We will continue with the patient's daily aspirin and eventually restart other medicines, when BP and diet are better. (8) Elevated troponin Impression: His troponins are elevated but flat, signifying no acute [place]. His BNPs are also elevated but flat, and because of this, his IV hydration was gentle up until now. I performed a bedside Echo, which showed normal left ventricular size and wall thickness. LV apex severe hypokinesis, other wall motion normal, LVEF 55 to 60%. Doppler shows mild LV diastolic dysfunction. (9) Positive nasal culture for methicillin resistant Staphylococcus aureus Impression: Since he may also have systemic MRSA, IV vancomycin has been added to his antibiotics He was treated with ethanol nasal swabs as well. (10) Sepsis Impression: Resolved. His blood pressure is better. WBC down and lactic acid corrected. The etiology appears to be a lobar pneumonia. Continue with IV fluids. Treat the underlying problem with antibiotics (11) Hypotension Impression: Resolved.
[2022-04-04] MEDS: POTASSIUM CHLOR 10 MEQ/100 ML 10 MEQ/100 ML BAG IV SCH ×2 (14:41→16:28)
[2022-04-04] MEDS: POTASSIUM CHLORIDE 10 MEQ CAPSULE PO SCH (14:45)
[2022-04-04] MEDS: DEXTROSE 5% IV SCH (20:10)
[2022-04-04] MEDS: AMINOPHYLLINE IV SCH (20:10)
[2022-04-04] MEDS: ATORVASTATIN 40 MG TABLET PO SCH (20:49)
[2022-04-04] MEDS: MIRTAZAPINE 15 MG TABLET PO SCH (20:49)
[2022-04-05 04:41] LABS: BASOPHILS % (AUTO) 0.4 %; EOSINOPHILS % (AUTO) 0.1 %; HGB - HEMOGLOBIN 11.1 g/dL (14.0-18.0); LYMPHOCYTES # (AUTO) 0.5 10^3/uL (1.5-3.5); LYMPHOCYTES % (AUTO) 4.4 %; MEAN CORPUSCULAR HEMOGLOBIN 28.8 pg (27.0-31.0); MEAN CORPUSCULAR HGB CONC 31.7 g/dL (32.0-36.0); MEAN CORPUSCULAR VOLUME 90.9 fL (80.0-94.0); MONOCYTES # (AUTO) 0.4 10^3/uL (0.0-1.0); MONOCYTES % (AUTO) 3.7 %; NEUTROPHILS # (AUTO) 9.8 10^3/uL (1.5-6.6); NEUTROPHILS % (AUTO) 90.7 %; PLT - PLATELET COUNT 171 10^3/uL (130-450); RED BLOOD COUNT 3.85 10^6/uL (4.70-6.10); RED CELL DISTRIBUTION WIDTH 14.7 % (12.0-15.0); WHITE BLOOD COUNT 10.8 x10^3/uL (4.8-10.8)
[2022-04-05 04:52] LABS: CALCIUM 7.8 mg/dL (8.5-10.3); CREATININE 1.9 mg/dL (0.6-1.2); MAGNESIUM 1.7 mg/dL (1.7-2.8); PHOSPHORUS 1.9 mg/dL (2.5-4.6); POTASSIUM 3.2 mmol/L (3.5-5.0)
[2022-04-05] MEDS: SODIUM CHLORIDE FLUSH 0.9% 10 ML SYRINGE IVP SCH ×3 (06:12→16:37)
[2022-04-05] MEDS: NEUTRA-PHOS 250 MG TABLET PO SCH ×2 (06:17→08:10)
[2022-04-05] MEDS: PANTOPRAZOLE 40 MG TABLET PO SCH (06:17)
[2022-04-05] MEDS: D5.45NS W/20 MEQ KCL 1,000 ML IV SCH ×2 (06:32→20:25)
[2022-04-05] MEDS ORDERED: MAGNESIUM OXIDE 400 MG TABLET PO ONE ×2 (07:00→15:58)
[2022-04-05] MEDS: ethyl alcohoL 62% SWAB AMPULE NAS SCH ×2 (08:10→21:02)
[2022-04-05] MEDS: ASPIRIN CHEW 81 MG TABLET PO SCH (08:10)
[2022-04-05] MEDS: guaiFENesin 600 MG TABLET PO SCH ×2 (08:10→16:38)
[2022-04-05] MEDS: POTASSIUM CHLORIDE 10 MEQ CAPSULE PO SCH (08:10)
[2022-04-05] MEDS: HEPARIN 5,000 UNIT/ML VIAL SUBQ SCH ×2 (08:10→21:01)
[2022-04-05] MEDS: cefTRIAXone 2 GM in SODIUM CHLORIDE 0.9% MINIBAG 100 ML IV SCH (08:10)
[2022-04-05] MEDS: VANCOMYCIN INJ 1 GM in SODIUM CHLORIDE 0.9% 250 ML IV SCH (11:49)
--- NOTE | 2022-04-05 12:49 | PROVIDER PROGRESS NOTE ---
Objective - Vital Signs/Intake & Output Reviewed Vital Signs: Yes Vital Signs: Vital Signs Temp Pulse Resp BP Pulse Ox 04/05/22 09:00 36.7 C 75 23 130/72 97 Intake & Output: Intake & Output 04/02/22 04/03/22 04/04/22 04/05/22 23:59 23:59 23:59 23:59 Intake Total 1997 3535.875 3676.244 1782.278 Output Total 700 850 1 Balance 1997 2835.875 2826.244 1781.278 - Objective General Appearance: positive: No acute distress, Alert, Other (Appears less fatigued, able to eat much more of his food and drink without painful swallowing) Eyes Bilateral: positive: Normal inspection ENT: positive: ENT inspection nml, No signs of dehydration, Other (Poor dentition) Neck: positive: Nml inspection, No JVD Respiratory: positive: No respiratory distress (at rest) Cardiovascular: positive: Regular rate & rhythm, No murmur Abdomen: positive: Non-tender, No distention Skin: positive: Warm, Dry Extremities: positive: Non-tender, No pedal edema Neurologic/Psychiatric: positive: Oriented x3 (Non-focal) - Lab Results Fish Bones: 04/07/22 07:51 04/09/22 04:47 Other Labs: Lab Results x24hrs 04/05/22 04/05/22 04/04/22 Range/Units 04:28 04:28 13:40 WBC 10.8 (4.8-10.8) x10^3/uL RBC 3.85 L (4.70-6.10) 10^6/uL Hgb 11.1 L (14.0-18.0) g/dL Hct 35.0 L (42.0-52.0) % MCV 90.9 (80.0-94.0) fL MCH 28.8 (27.0-31.0) pg MCHC 31.7 L (32.0-36.0) g/dL RDW 14.7 (12.0-15.0) % Plt Count 171 (130-450) 10^3/uL MPV 11.0 (7.4-11.4) fL Neut # (Auto) 9.8 H (1.5-6.6) 10^3/uL Lymph # (Auto) 0.5 L (1.5-3.5) 10^3/uL [place] # (Auto) 0.4 (0.0-1.0) 10^3/uL Eos # (Auto) 0.0 (0.0-0.7) 10^3/uL Baso # (Auto) 0.0 (0.0-0.1) 10^3/uL Absolute Nucleated RBC 0.00 x10^3/uL Nucleated RBC % 0.0 /100WBC Sodium 145 145 (135-145) mmol/L Potassium 3.2 L 2.8 L (3.5-5.0) mmol/L Chloride 116 H 113 H (101-111) mmol/L Carbon Dioxide 21 20 L (21-32) mmol/L Anion Gap 8.0 12.0 (6-13) BUN 50 H 61 H (6-20) mg/dL Creatinine 1.9 H 2.2 H (0.6-1.2) mg/dL Estimated GFR (MDRD) 34 L 29 L (>89) Glucose 149 H 149 H (70-100) mg/dL Calcium 7.8 L 8.3 L (8.5-10.3) mg/dL Phosphorus 1.9 L (2.5-4.6) mg/dL Magnesium 1.7 (1.7-2.8) mg/dL 04/04/22 Range/Units 13:40 WBC (4.8-10.8) x10^3/uL RBC (4.70-6.10) 10^6/uL Hgb (14.0-18.0) g/dL Hct (42.0-52.0) % MCV (80.0-94.0) fL MCH (27.0-31.0) pg MCHC (32.0-36.0) g/dL RDW (12.0-15.0) % Plt Count (130-450) 10^3/uL MPV (7.4-11.4) fL Neut # (Auto) (1.5-6.6) 10^3/uL Lymph # (Auto) (1.5-3.5) 10^3/uL [place] # (Auto) (0.0-1.0) 10^3/uL Eos # (Auto) (0.0-0.7) 10^3/uL Baso # (Auto) (0.0-0.1) 10^3/uL Absolute Nucleated RBC x10^3/uL Nucleated RBC % /100WBC Sodium (135-145) mmol/L Potassium (3.5-5.0) mmol/L Chloride (101-111) mmol/L Carbon Dioxide (21-32) mmol/L Anion Gap (6-13) BUN (6-20) mg/dL Creatinine (0.6-1.2) mg/dL Estimated GFR (MDRD) (>89) Glucose (70-100) mg/dL Calcium (8.5-10.3) mg/dL Phosphorus (2.5-4.6) mg/dL Magnesium 1.8 (1.7-2.8) mg/dL Assessment/Plan - Problem List (1) CAP (community acquired pneumonia) Impression: There is a right lower lobe pneumonia on imaging. Now he is making sputum, after hydration was started. We sent off a sputum sample The patient was started on empiric Zithromax and has completed this, and also is on IV ceftriaxone. Blood cultures were drawn, and are negative to date. Await cx results to [facility] He is on Mucinex and probiotics (2) VTach Impression: He had a prolonged run of monomorphic V. tach that stopped spontaneously. Rate was 145. He was asymptomatic during this His magnesium and potassium were very low. They have been replaced, will follow levels. He has a preserved LVEF, therefore we will not start empiric Amiodarone. Remain in the ICU on telemetry. (3) Junctional bradycardia Impression: This was his rhythm at presentation, when in the ED, and the patient was offered transfer for pacemaker and he refused this, wanted only IV antibiotics and IV fluids and wanted a industrial sweeper cleaner called for his last rights. When he is admitted to [facility], he change his mind and stated he wanted to be transferred for pacemaker. Therefore he was transferred to the ICU with external patch electrodes put on, and more aggressive management started. IV aminophylline was started to obtain the side effect of tachycardia. This resulted in less junctional bradycardia, and more A. fib, ventricular rates were between 80-100 and the iv Aminophylline rate was halved yesterday. Today we will decrease this to 1/4 of the initial rate. We ordered a Theophylline level A permanent pacemaker is indicated with this underlying problem of junctional bradycardia on no HR slowing meds. We have contacted 2 facilities for transfer. In [place], at [facility], they said they would not accept him. At [facility] he was put on their waiting list and was 13th on the list 2 days ago. Undoubtedly, the providers at all facilities will want his underlying infection treated first. Remain in the ICU. External pacer patches are in place in case external pacing is needed. I performed a bedside Echo several days ago (since we only have Echo service currently available here , Tue, ). The Echo showed: Normal left atrial size, right atrium poorly seen. Normal aortic root diameter with mural atherosclerosis. Normal left ventricular size and wall thickness. LV apex severe hypokinesis, other wall motion normal, LVEF 55 to 60%. Doppler shows mild LV diastolic dysfunction (grade 1). Right ventricle probably normal in size and function, but the RV is less well seen. Doppler of the valves shows trace mitral regurgitation, probably normal aortic valve and tricuspid valve function. The pulmonic valve was never well seen. No pericardial effusion noted. (4) Atrial fibrillation Impression: He must have paroxysmal Afib because today he is in NSR. It was learned from the son from [place], that the patient has had some type of ablation done 1 year ago in [facility]. There is also a prior history of A. fib. The patient was on no heart rate slowing medications before this hospitalization. He sees his Title Insurance Examiner once a year, Dr Arben Spivey, [facility] at [place]. Dr Spivey has not been contacted, since transfer to [place] is not the closest available hospital. We will continue on telemetry. Continue with his daily aspirin as his stroke prophylaxis. An Echocardiogram was done at bedside 2 days ago and this showed a preserved LVEF. Therefore this patient's CHADS2 score = 1 (age>75), and aspirin is planned to be continued, no DOAC (5) CATIA (acute kidney injury) Impression: BUN/creatinine are improving daily with IV fluids. He still is clinically dehydrated. We will continue with IV hydration. Promote p.o. fluid intake now that his oral mucosa is not cracked and painful. Avoid nephrotoxins. Follow BMP daily (6) Hypokalemia due to inadequate potassium intake Impression: He had reported taking in nearly no oral intake for 2 weeks when his COVID started and he developed no appetite. Will replace with IV and p.o. potassium, carefully, because of his continued elevated creatinine. (7) Dehydration Impression: This patient described almost no p.o. intake for about 2 weeks and claims he had a 34 pound weight loss in 2 weeks. Will continue with IV fluids. We will also request nutrition consult regarding malnutrition screen and any recommendations for his diet (8) Severe protein calorie malnutrition Impression: The patient has severe muscle wasting and loss of fat, Has had nutritional intake of less than 50% of recommended for the last 2 weeks, has weight loss of greater than 2% in the last week, weight is down 16 kg which is 21% down in the past month, he is very weak with significantly reduced functional capacity and needs to be fed, needs pured food. (9) Hx of coronary artery disease Impression: The patient's son from [place] was at bedside and provided details of the pt's Cad Hx.. The patient used to live with this son and haS all his Cardiology care in [place]. The patient reports that he had yearly stress tests to check his CABGs. 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 We will continue with the patient's daily aspirin and eventually restart other medicines, when BP and diet are better. (10) Elevated troponin Impression: His troponins are elevated but flat, signifying no acute [place]. His BNPs are also elevated but flat, and because of this, his IV hydration was gentle up until now. I performed a bedside Echo, which showed normal left ventricular size and wall thickness. LV apex severe hypokinesis, other wall motion normal, LVEF 55 to 60%. Doppler shows mild LV diastolic dysfunction. (11) Positive nasal culture for methicillin resistant Staphylococcus aureus Impression: Since he may also have systemic MRSA, IV vancomycin has been added to his antibiotics He was treated with ethanol nasal swabs as well. (12) Sepsis Impression: Resolved. His blood pressure is better. WBC down and lactic acid corrected. The etiology appears to be a lobar pneumonia. Continue with IV fluids. Treat the underlying problem with antibiotics (13) Hypotension Impression: Resolved.
--- NOTE | 2022-04-05 14:53 | PHARMACY PROGRESS NOTE ---
- Best Possible Medication History Admit Date and Time: 04/02/22 1400 Processed by: Nursing Medication History completed: Yes As the person ultimately responsible for medication therapy, providers are able to order a medication from an existing home medication list in [facility] via the "Reconcile Routine" prior to Confirmation of that medication by manufacturing support engineer. Such practice is discouraged except when the physician, in their clinical judgment, deems that a medical need exists for a medication without regard to previous use.
[2022-04-05 15:09] LABS: MAGNESIUM 1.5 mg/dL (1.7-2.8); PHOSPHORUS 1.9 mg/dL (2.5-4.6); POTASSIUM 3.2 mmol/L (3.5-5.0)
[2022-04-05] MEDS ORDERED: POTASSIUM PHOSPHATE 21 MMOL in SODIUM CHLORIDE 0.9% 250 ML IV ONE (16:00)
[2022-04-05] MEDS: MULTIVITAMIN W/MINERALS TABLET PO SCH (16:36)
[2022-04-05] MEDS: DEXTROSE 5% IV SCH (16:36)
[2022-04-05] MEDS: AMINOPHYLLINE IV SCH (16:36)
[2022-04-05] MEDS: POTASSIUM CHLORIDE 20 MEQ/15 ML UDC PO SCH ×2 (16:36→18:06)
[2022-04-05] MEDS: MIRTAZAPINE 15 MG TABLET PO SCH (21:01)
[2022-04-05] MEDS: SODIUM CHLORIDE FLUSH 0.9% 10 ML SYRINGE IVP PRN (21:02)
[2022-04-05] MEDS: ATORVASTATIN 40 MG TABLET PO SCH (21:02)
[2022-04-06] MEDS: SODIUM CHLORIDE FLUSH 0.9% 10 ML SYRINGE IVP SCH ×3 (00:44→17:08)
[2022-04-06 07:23] LABS: BASOPHILS % (AUTO) 0.3 %; EOSINOPHILS # (AUTO) 0.1 10^3/uL (0.0-0.7); EOSINOPHILS % (AUTO) 1.2 %; HCT - HEMATOCRIT 35.6 % (42.0-52.0); HGB - HEMOGLOBIN 11.2 g/dL (14.0-18.0); LYMPHOCYTES # (AUTO) 0.6 10^3/uL (1.5-3.5); LYMPHOCYTES % (AUTO) 6.8 %; MEAN CORPUSCULAR HEMOGLOBIN 29.4 pg (27.0-31.0); MEAN CORPUSCULAR HGB CONC 31.5 g/dL (32.0-36.0); MEAN CORPUSCULAR VOLUME 93.4 fL (80.0-94.0); MEAN PLATELET VOLUME 10.8 fL (7.4-11.4); MONOCYTES # (AUTO) 0.6 10^3/uL (0.0-1.0); MONOCYTES % (AUTO) 6.1 %; NEUTROPHILS # (AUTO) 7.8 10^3/uL (1.5-6.6); NEUTROPHILS % (AUTO) 84.8 %; PLT - PLATELET COUNT 174 10^3/uL (130-450); RED BLOOD COUNT 3.81 10^6/uL (4.70-6.10); WHITE BLOOD COUNT 9.2 x10^3/uL (4.8-10.8)
[2022-04-06 07:32] LABS: CALCIUM 7.7 mg/dL (8.5-10.3); CREATININE 1.7 mg/dL (0.6-1.2)
[2022-04-06 08:11] LABS: CALCIUM, IONIZED 1.07 mmol/L (1.15-1.33); VBG PH 7.362 (7.31-7.41)
[2022-04-06 08:20] LABS: MAGNESIUM 1.5 mg/dL (1.7-2.8); PHOSPHORUS 1.9 mg/dL (2.5-4.6)
[2022-04-06] MEDS: PANTOPRAZOLE 40 MG TABLET PO SCH (08:26)
[2022-04-06] MEDS: guaiFENesin 600 MG TABLET PO SCH ×2 (08:27→17:08)
[2022-04-06] MEDS: MULTIVITAMIN W/MINERALS TABLET PO SCH (08:27)
[2022-04-06] MEDS: cefTRIAXone 2 GM in SODIUM CHLORIDE 0.9% MINIBAG 100 ML IV SCH (08:27)
[2022-04-06] MEDS: POTASSIUM CHLORIDE 10 MEQ CAPSULE PO SCH (08:27)
[2022-04-06] MEDS: CHOLECALCIFEROL 25 MCG TABLET PO SCH (08:27)
[2022-04-06] MEDS: D5.45NS W/20 MEQ KCL 1,000 ML IV SCH ×2 (08:27→21:47)
[2022-04-06] MEDS: ASPIRIN CHEW 81 MG TABLET PO SCH (08:27)
[2022-04-06] MEDS: ethyl alcohoL 62% SWAB AMPULE NAS SCH ×2 (08:28→21:26)
[2022-04-06] MEDS: HEPARIN 5,000 UNIT/ML VIAL SUBQ SCH ×2 (08:28→21:23)
[2022-04-06] MEDS ORDERED: MAGNESIUM SULFATE 2 GRAM 2 GM/50 ML BAG IV ONE (09:33)
[2022-04-06] MEDS ORDERED: POTASSIUM PHOSPHATE 15 MMOL in SODIUM CHLORIDE 0.9% 250 ML IV ONE (09:33)
[2022-04-06] MEDS ORDERED: CALCIUM CHLORIDE 1,000 MG in SODIUM CHLORIDE 0.9% 50 ML IV ONE (11:00)
[2022-04-06] MEDS ORDERED: MIDODRINE 2.5 MG TABLET PO ONE (11:15)
[2022-04-06 12:02] LABS: THYROID STIMULATING HORMONE 1.3 uIU/mL (0.34-5.60)
[2022-04-06 12:05] LABS: FREE T4 (FREE THYROXINE) 0.95 ng/dL (0.58-1.64)
[2022-04-06] MEDS: MAGNESIUM OXIDE 400 MG TABLET PO SCH ×2 (13:29→21:47)
[2022-04-06 13:47] LABS: PROCALCITONIN 1.51 ng/mL (<0.5)
--- NOTE | 2022-04-06 14:19 | PROVIDER PROGRESS NOTE ---
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 Receiving electrolyte repletion protocol and systolic blood pressures are labile and goes into junctional sinus bradycardia and was reported to have RVR A. fib in the 120s to 140s and goes back into normal sinus rhythm with systolic blood pressures ranging in the 90s to 100s. Patient was taken off aminophylline as this was likely contributing his RVR A. fib. He was previously wanting a pacemaker but I spoke to patient at bedside and essentially. On examination: Vital signs show no hypoxemia, afebrile, nontachypneic, nontachycardic in and out of atrial fibrillation on telemetry. General: Patient is conversive, alert and oriented x3 in no acute respiratory distress heent: NCAT, no buccal lesion Neck: No JVD, no bruits CV/lungs: Irregular irregular, no murmurs, gallops, clicks. No rubs. CTA BL. Abdomen: Soft and benign Extremities/skin: 2+ pulses dorsalis pedis, no edema, clubbing or cyanosis Neuro: Grossly intact. Labs: Reviewed Imaging studies: Reviewed EKG shows sinus rhythm at 73 bpm with atrial premature complexes SV complex with short R-R interval, abnormal T consider ischemia to the lateral leads. Assessment/plan: - Problem List (1) CAP (community acquired pneumonia) Impression: There is a right lower lobe pneumonia on imaging. With intermittent copious sputum production, status post azithromycin and remains on Rocephin plus vancomycin day #3 of treatment. Blood cultures were drawn, and are negative to date. Await cx results to tailor meds. Mucinex and probiotics. Hypoxemic and not requiring oxygenation however will continue with RT, I-S, pulmonary toileting, nebs improved sputum production with supportive treatment. Check procalcitonin. (2) VTach (resolved)/Junctional bradycardia/RVR A. fib (sick sinus syndrome) Impression: Patient presented with previous V. tach monomorphic which stopped spontaneously and was asymptomatic however did develop junctional bradycardia and in light of his RVR A. fib for which patient does have a history of atrial fibrillation and not anticoagulated we will forego full anticoagulation in the setting of his comorbidities and age and elevated bleeding risk. He initially wanted a pacemaker and a call to [place] had been made previously for transfer to higher level care however he has stated that his knotting machine operator portable previously had stated that he would not be a candidate for pacemaker placement and currently has decided on foregoing pacemaker placement at this time as he would need to complete antibiotic therapy and essentially would go against his goals of care as a DNR if pacemaker placement was pursued. We will discontinue aminophylline as this may induce arrhythmias and currently holding beta-blockade due to his s oft BPs. Defer off digoxin due to his poor creatinine clearance although improved renal function. Continue to correct underlying severe electrolyte disturbances. EKG reviewed and preior echo shows, LV apex severe hypokinesis, other wall motion normal, LVEF 55 to 60%. Doppler shows mild LV diastolic dysfunction (grade 1). He has a preserved LVEF, therefore we will not start empiric Amiodarone. Remain in the ICU on telemetry. External pacer patches are in place in case external pacing is needed. [id number] Score is 3 pts. However, his HASBLED score is 3 pts which puts him at 5.8% or a high risk of bleeding events and will forego off of DOAC, Coumadin or full AC. We will check TSH and free T4. Patient had some type of ablation done 1 year ago in [facility] per information obtained from son from [place]. There is prior history of paroxysmal atrial fibrillation but does not have or has been on beta-blockade. Patient sees his primary knotting machine operator portable Dr Arben Spivey [facility] at [place]. Dr Spivey has not been contacted, since transfer to [place] is not the closest available hospital. (5) CATIA (acute kidney injury)--Improved Impression: Likely from dehydration, failure to thrive with poor hydration as it pertains to his postacute COVID syndrome and was [facility]. BUN/creatinine are improving daily with IV fluids. He still is clinically dehydrated. We will continue with IV hydration. Promote p.o. fluid intake now that his oral mucosa is not cracked and painful. Avoid nephrotoxins. Follow BMP daily (6) Electrolyte disturbance (hypokalemia, hypomagnesemia, hypocalcemia) Impression: He had reported taking in nearly no oral intake for 2 weeks when his COVID started and he developed no appetite. Will replace with IV and p.o. potassium, carefully, because of his continued elevated creatinine. (7) Acute Dehydration (improved)/Hypovolemia Impression: This patient described almost no p.o. intake for about 2 weeks and claims he had a 34 pound weight loss in 2 weeks. Will continue with IV fluids. We will also request nutrition consult regarding malnutrition screen and any recommendations for his diet (8) Severe protein calorie malnutrition (Present on admission). Impression: The patient has severe muscle wasting and loss of fat, Has had nutritional intake of less than 50% of recommended for the last 2 weeks, has weight loss of greater than 2% in the last week, weight is down 16 kg which is 21% down in the past month, he is very weak with significantly reduced functional capacity and needs to be fed, needs pured food. Optimize nutritional and medical management with the correction of underlying electrolyte disturbances as per above. Patient does have bouts of blood pressures systolics in the 90s and will provide midodrine 5 mg p.o. 3 times daily remains on aspirin and will continue with medical management and will provide (9) Hx of coronary artery disease Impression: The patient's son from [place] was at bedside and provided details of the pt's Cad Hx.. The patient used to live with this son and haS all his Cardiology care in [place]. The patient reports that he had yearly stress tests to check his CABGs. The son was able to show Dr. Ruiz a report: The patient had a Lexiscan pharmaceutical nuclear stress test in early 2020 and the nuclear scan showed 1% to 3% ischemic burden, and overall normal EF it reported (no % was given). We will continue with the patient's daily aspirin and eventually restart other medicines, when BP and diet are better. (10) Elevated troponin Impression: His troponins are elevated but flat, signifying no acute CA. His BNPs are also elevated but flat, and because of this, his IV hydration was gentle up until now. I performed a bedside Echo, which showed normal left ventricular size and wall thickness. LV apex severe hypokinesis, other wall motion normal, LVEF 55 to 60%. Doppler shows mild LV diastolic dysfunction. (11) Positive nasal culture for methicillin resistant Staphylococcus aureus Impression: Since he may also have systemic MRSA, IV vancomycin has been added to his antibiotics He was treated with ethanol nasal swabs as well. (12) Sepsis (resolved) Impression: Resolved. His blood pressure is better. WBC down and lactic acid corrected. The etiology appears to be a lobar pneumonia. Continue with IV fluids. Treat the underlying problem with antibiotics (13) Hypotension Impression: Resolved. On midodrine now. Total critical care time: 40 minutes. Objective - Vital Signs/Intake & Output Vital Signs: Vital Signs Temp Pulse Resp BP Pulse Ox 04/06/22 13:00 66 20 133/70 H 99 04/06/22 12:49 73 16 149/84 H 100 04/06/22 12:00 36.6 C 77 20 112/66 99 04/06/22 11:24 73 16 127/97 H 100 04/06/22 11:16 102 H 22 99 04/06/22 11:09 127 H 22 123/99 H 99 04/06/22 11:05 68 24 94/76 99 04/06/22 10:55 140 H 22 94/45 L 99 04/06/22 10:45 135 H 20 126/55 L 99 04/06/22 10:43 113 H 16 108/66 99 Intake & Output: Intake & Output 04/03/22 04/04/22 04/05/22 04/06/22 23:59 23:59 23:59 23:59 Intake Total 3535.875 3676.244 3724.445 1651.398 Output Total 700 850 901 850 Balance 2835.875 2826.244 2823.445 801.398 - Lab Results Fish Bones: 04/06/22 07:13 04/06/22 07:13 Other Labs: Lab Results x24hrs 04/06/22 04/06/22 04/06/22 Range/Units 08:01 08:01 07:13 WBC (4.8-10.8) x10^3/uL RBC (4.70-6.10) 10^6/uL Hgb (14.0-18.0) g/dL Hct (42.0-52.0) % MCV (80.0-94.0) fL MCH (27.0-31.0) pg MCHC (32.0-36.0) g/dL RDW (12.0-15.0) % Plt Count (130-450) 10^3/uL MPV (7.4-11.4) fL Neut # (Auto) (1.5-6.6) 10^3/uL Lymph # (Auto) (1.5-3.5) 10^3/uL [place] # (Auto) (0.0-1.0) 10^3/uL Eos # (Auto) (0.0-0.7) 10^3/uL Baso # (Auto) (0.0-0.1) 10^3/uL Absolute Nucleated RBC x10^3/uL Nucleated RBC % /100WBC VBG pH 7.362 (7.31-7.41) Ionized Calcium 1.07 L (1.15-1.33) mmol/L Sodium (135-145) mmol/L Potassium (3.5-5.0) mmol/L Chloride (101-111) mmol/L Carbon Dioxide (21-32) mmol/L Anion Gap (6-13) BUN (6-20) mg/dL Creatinine (0.6-1.2) mg/dL Estimated GFR (MDRD) (>89) Glucose (70-100) mg/dL Calcium (8.5-10.3) mg/dL Phosphorus 1.9 L (2.5-4.6) mg/dL Magnesium 1.5 L (1.7-2.8) mg/dL Vitamin B12 (180-914) pg/mL Procalcitonin 1.51 H (<0.5) ng/mL TSH 1.30 (0.34-5.60) uIU/mL Free T4 0.95 (0.58-1.64) ng/dL 04/06/22 04/06/22 04/05/22 Range/Units 07:13 07:13 14:29 WBC 9.2 (4.8-10.8) x10^3/uL RBC 3.81 L (4.70-6.10) 10^6/uL Hgb 11.2 L (14.0-18.0) g/dL Hct 35.6 L (42.0-52.0) % MCV 93.4 (80.0-94.0) fL MCH 29.4 (27.0-31.0) pg MCHC 31.5 L (32.0-36.0) g/dL RDW 15.0 (12.0-15.0) % Plt Count 174 (130-450) 10^3/uL MPV 10.8 (7.4-11.4) fL Neut # (Auto) 7.8 H (1.5-6.6) 10^3/uL Lymph # (Auto) 0.6 L (1.5-3.5) 10^3/uL [place] # (Auto) 0.6 (0.0-1.0) 10^3/uL Eos # (Auto) 0.1 (0.0-0.7) 10^3/uL Baso # (Auto) 0.0 (0.0-0.1) 10^3/uL Absolute Nucleated RBC 0.00 x10^3/uL Nucleated RBC % 0.0 /100WBC VBG pH (7.31-7.41) Ionized Calcium (1.15-1.33) mmol/L Sodium 145 (135-145) mmol/L Potassium 4.0 3.2 L (3.5-5.0) mmol/L Chloride 117 H (101-111) mmol/L Carbon Dioxide 21 (21-32) mmol/L Anion Gap 7.0 (6-13) BUN 41 H (6-20) mg/dL Creatinine 1.7 H (0.6-1.2) mg/dL Estimated GFR (MDRD) 39 L (>89) Glucose 127 H (70-100) mg/dL Calcium 7.7 L (8.5-10.3) mg/dL Phosphorus 1.9 L (2.5-4.6) mg/dL Magnesium 1.5 L (1.7-2.8) mg/dL Vitamin B12 (180-914) pg/mL Procalcitonin (<0.5) ng/mL TSH (0.34-5.60) uIU/mL Free T4 (0.58-1.64) ng/dL 04/05/22 Range/Units 04:28 WBC (4.8-10.8) x10^3/uL RBC (4.70-6.10) 10^6/uL Hgb (14.0-18.0) g/dL Hct (42.0-52.0) % MCV (80.0-94.0) fL MCH (27.0-31.0) pg MCHC (32.0-36.0) g/dL RDW (12.0-15.0) % Plt Count (130-450) 10^3/uL MPV (7.4-11.4) fL Neut # (Auto) (1.5-6.6) 10^3/uL Lymph # (Auto) (1.5-3.5) 10^3/uL [place] # (Auto) (0.0-1.0) 10^3/uL Eos # (Auto) (0.0-0.7) 10^3/uL Baso # (Auto) (0.0-0.1) 10^3/uL Absolute Nucleated RBC x10^3/uL Nucleated RBC % /100WBC VBG pH (7.31-7.41) Ionized Calcium (1.15-1.33) mmol/L Sodium (135-145) mmol/L Potassium (3.5-5.0) mmol/L Chloride (101-111) mmol/L Carbon Dioxide (21-32) mmol/L Anion Gap (6-13) BUN (6-20) mg/dL Creatinine (0.6-1.2) mg/dL Estimated GFR (MDRD) (>89) Glucose (70-100) mg/dL Calcium (8.5-10.3) mg/dL Phosphorus (2.5-4.6) mg/dL Magnesium (1.7-2.8) mg/dL Vitamin B12 542 (180-914) pg/mL Procalcitonin (<0.5) ng/mL TSH (0.34-5.60) uIU/mL Free T4 (0.58-1.64) ng/dL
[2022-04-06] MEDS ORDERED: PERFLUTREN LIPID MICROSPHERES 1.65 MG/1.5 ML VIAL IVP ONE (15:37)
[2022-04-06 16:28] LABS: CALCIUM, IONIZED 1.15 mmol/L (1.15-1.33); VBG PH 7.302 (7.31-7.41)
[2022-04-06 16:37] LABS: PHOSPHORUS 2.2 mg/dL (2.5-4.6)
[2022-04-06] MEDS: NEUTRA-PHOS 250 MG TABLET PO SCH ×2 (17:07→19:37)
[2022-04-06] MEDS: MIDODRINE 2.5 MG TABLET PO SCH (17:08)
[2022-04-06] MEDS: MIRTAZAPINE 15 MG TABLET PO SCH (21:24)
[2022-04-06] MEDS: ATORVASTATIN 40 MG TABLET PO SCH (21:25)
[2022-04-07] MEDS: SODIUM CHLORIDE FLUSH 0.9% 10 ML SYRINGE IVP SCH ×3 (04:00→18:17)
[2022-04-07] MEDS: MAGNESIUM OXIDE 400 MG TABLET PO SCH ×3 (06:41→22:47)
[2022-04-07] MEDS: PANTOPRAZOLE 40 MG TABLET PO SCH (06:41)
[2022-04-07 07:59] LABS: BASOPHILS % (AUTO) 0.3 %; EOSINOPHILS # (AUTO) 0.3 10^3/uL (0.0-0.7); EOSINOPHILS % (AUTO) 2.9 %; HCT - HEMATOCRIT 36.8 % (42.0-52.0); HGB - HEMOGLOBIN 11.4 g/dL (14.0-18.0); LYMPHOCYTES # (AUTO) 0.7 10^3/uL (1.5-3.5); LYMPHOCYTES % (AUTO) 7.1 %; MEAN CORPUSCULAR VOLUME 93.6 fL (80.0-94.0); MEAN PLATELET VOLUME 10.2 fL (7.4-11.4); MONOCYTES # (AUTO) 0.4 10^3/uL (0.0-1.0); MONOCYTES % (AUTO) 4.2 %; NEUTROPHILS # (AUTO) 7.9 10^3/uL (1.5-6.6); NEUTROPHILS % (AUTO) 84.3 %; PLT - PLATELET COUNT 190 10^3/uL (130-450); RED BLOOD COUNT 3.93 10^6/uL (4.70-6.10); RED CELL DISTRIBUTION WIDTH 15.1 % (12.0-15.0); WHITE BLOOD COUNT 9.3 x10^3/uL (4.8-10.8)
[2022-04-07 08:06] LABS: CALCIUM, IONIZED 1.11 mmol/L (1.15-1.33); VBG PH 7.381 (7.31-7.41)
[2022-04-07 08:14] LABS: BUN - BLOOD UREA NITROGEN 33 mg/dL (6-20); CALCIUM 7.9 mg/dL (8.5-10.3); CARBON DIOXIDE - CO2 22 mmol/L (21-32); CHLORIDE 110 mmol/L (101-111); CREATININE 1.5 mg/dL (0.6-1.2); GFR - MDRD 45 (>89); GLUCOSE 119 mg/dL (70-100); MAGNESIUM 1.8 mg/dL (1.7-2.8); POTASSIUM 4.6 mmol/L (3.5-5.0); SODIUM 141 mmol/L (135-145); VANCOMYCIN,RANDOM 10.4 ug/mL
[2022-04-07] MEDS: BUDESONIDE 0.5 MG/2 ML NEB INH SCH ×2 (08:30→22:07)
[2022-04-07] MEDS ORDERED: SODIUM CHLORIDE INHALATION 3 ML NEB INH SCH (09:00)
[2022-04-07] MEDS: cefTRIAXone 2 GM in SODIUM CHLORIDE 0.9% MINIBAG 100 ML IV SCH (09:29)
[2022-04-07] MEDS: D5.45NS W/20 MEQ KCL 1,000 ML IV SCH ×2 (09:36→23:58)
[2022-04-07] MEDS: MULTIVITAMIN W/MINERALS TABLET PO SCH (09:39)
[2022-04-07] MEDS: SERTRALINE 25 MG TABLET PO SCH (09:40)
[2022-04-07] MEDS: NEUTRA-PHOS 250 MG TABLET PO SCH ×2 (09:40→12:22)
[2022-04-07] MEDS: CHOLECALCIFEROL 25 MCG TABLET PO SCH (09:40)
[2022-04-07] MEDS: guaiFENesin 600 MG TABLET PO SCH ×2 (09:40→18:17)
[2022-04-07] MEDS: ASPIRIN CHEW 81 MG TABLET PO SCH (09:40)
[2022-04-07] MEDS: ethyl alcohoL 62% SWAB AMPULE NAS SCH ×2 (09:41→22:47)
[2022-04-07] MEDS: POTASSIUM CHLORIDE 10 MEQ CAPSULE PO SCH (09:41)
[2022-04-07] MEDS: MIDODRINE 2.5 MG TABLET PO SCH ×3 (09:41→18:17)
[2022-04-07] MEDS: HEPARIN 5,000 UNIT/ML VIAL SUBQ SCH ×2 (10:21→22:48)
[2022-04-07] MEDS: SODIUM CHLORIDE INHALATION 3 ML NEB INH SCH ×3 (11:18→22:07)
[2022-04-07] MEDS: VANCOMYCIN INJ 1 GM in SODIUM CHLORIDE 0.9% 250 ML IV SCH (12:22)
--- NOTE | 2022-04-07 12:45 | PROVIDER PROGRESS NOTE ---
Progress Note Patient seen at bedside today with improvement to his clinical status and w/ ongoing slow rate afib/bradycardia w/ prolonged QT on telemetry. He denies chest pain, headaches, visual disturbances, palpitations, jaw claudication, GI/ symptoms, CONSTRUCTION SECRETARY rash or joint tenderness. SBp's improved to 130's but low of 100. Patient was taken off aminophylline as this was likely contributing his RVR A. fib. Previously wanting a pacemaker but was now dissuaded by prior campus rep and was evaluated previously at [facility] and also told that he would not be a good candidate for his pacemaker. He has elected on deferral of pacemaker for now and with limited intervention. Palliative care services were requested. Patient has a weak moist productive cough and is receiving RT therapies. On examination: Afebrile, slow rate atrial fibrillation on telemetry. General:Patient is pleasant, cooperative, cachectic and ill-appearing HEENT: NCAT, no buccal lesions, oropharynx clear Neck: No JVD, no bruits CV/lungs: Irregular irregular, no murmurs, gallops, clicks. No rubs. CTA BL. Abdomen: Soft and benign Musculoskeletal: Sarcopenia noted Extremities/skin: 2+ pulses dorsalis pedis, no edema, clubbing or cyanosis Neuro: Grossly intact. Labs: Reviewed Imaging studies: Reviewed EKG shows sinus rhythm at 73 bpm with atrial premature complexes SV complex with short R-R interval, abnormal T consider ischemia to the lateral leads. Assessment/plan: (1) CAP (community acquired pneumonia) Impression: There is a right lower lobe pneumonia w/ possible mucus plugging related to aspiration/bronchitis on imaging. He has intermittent sputum production, weak cough, status post azithromycin course and remains on Rocephin plus vancomycin. Day# of total abx treatment. Blood cultures were drawn, and are negative to date. Await cx results to tailor meds. May de-escalate to Augmentin plus doxycycline for a total of 10 days of antibiotic treatment. Mucinex and probiotics. Non-Hypoxemic and not requiring oxygenation however will continue with RT, I-S, pulmonary toileting, nebs improved sputum production with supportive treatment. Procalcitonin elevated at 1.51 will recheck in 48 hours. (2) Sick sinus syndrome Impression: Patient had some type of ablation done 1 year ago in [facility] per information obtained from son from [place]. There is prior history of paroxysmal atrial fibrillation but does not have or has been on beta-blockade. Patient sees his primary campus rep Dr Arben Spivey [facility] at [place]. Patient presented with previous V. tach monomorphic which stopped spontaneously and was asymptomatic however did develop junctional bradycardia and in light of his RVR A. fib for which patient does have a history of atrial fibrillation and not anticoagulated we will forego full anticoagulation in the setting of his comorbidities and age and elevated bleeding risk. He initially wanted a pacemaker and a call to [place] had been made previously for transfer to higher level care however he has stated that his campus rep previously had stated that he would not be a candidate for pacemaker placement and currently has decided on foregoing pacemaker placement at this time as he would need to complete antibiotic therapy and essentially would go against his goals of care as a DNR if pacemaker placement was pursued. Aminophylline d/c'ed on 04/06 as this may induce arrhythmias and currently holding beta-blockade due to his soft BPs. Defer off digoxin due to his poor creatinine clearance although improved renal function. Continue to correct underlying severe electrolyte disturbances. EKG reviewed and prior echo shows, LV apex severe hypokinesis, other wall motion normal, LVEF 55 to 60%. Doppler shows mild LV diastolic dysfunction (grade 1). He has a preserved LVEF, therefore defer off Amiodarone. Due to stability of patient's electrolytes and no use of external pacer patches patient will be transitioned to [facility] telemetry. [id number] Score is 3 pts. However, his HASBLED score is 3 pts which puts him at 5.8% or a high risk of bleeding events and will forego off of DOAC, Coumadin or full AC. TFTs essentially normal. (5) CATIA (acute kidney injury)--Improved Impression: Likely from dehydration, failure to thrive with poor hydration as it pertains to his postacute COVID syndrome and was living in [place] for 3 months. BUN/creatinine are improving daily with IV fluids. He still is clinically dehydrated but has improved now. We will continue with IV hydration. Promote p.o. fluid intake now that his oral mucosa is not cracked and painful. Avoid nephrotoxins. Follow BMP daily (6) Electrolyte disturbance (hypokalemia, hypomagnesemia, hypocalcemia); resolving Impression: He had reported taking in nearly no oral intake for 2 weeks when his COVID started and he developed no appetite. Electrolyte repletion has slowly improved his deficits and resolved with improvement to his creatinine function. (7) Acute Dehydration/Hypovolemia; resolved Impression: This patient described almost no p.o. intake for about 2 weeks and claims he had a 34 pound weight loss in 2 weeks. Will continue with IV fluids.Will encourage po intake as he has FTT/Anorexia related to his post acute covid syndrome and depression. Nutrition consult regarding malnutrition screen and any recommendations appreciated. (8) Severe protein calorie malnutrition (Present on admission). Impression: The patient has severe muscle wasting and loss of fat, Has had nutritional intake of less than 50% of recommended for the last 2 weeks, has weight loss of greater than 2% in the last week, weight is down 16 kg which is 21% down in the past month, he is very weak with significantly reduced functional capacity and needs to be fed, needs pured food. Optimize nutritional and medical management with the correction of underlying electrolyte disturbances as per above. Patient does have bouts of blood pressures systolics in the 90s and will provide midodrine 5 mg p.o. 3 times daily remains on aspirin and will continue with medical management and will provide (9) Hx of coronary artery disease Impression: The patient's son from [place] was at bedside and provided details of the pt's Cad Hx.. The patient used to live with this son and haS all his Cardiology care in [place]. The patient reports that he had yearly stress tests to check his CABGs. The son was able to show Dr. Ruiz a report: The patient had a Lexiscan pharmaceutical nuclear stress test in early 2020 and the nuclear scan showed 1% to 3% ischemic burden, and overall normal EF it reported (no % was given). We will continue with the patient's daily aspirin and eventually restart other medicines, when BP/HR and diet are better. (10) Demand ischemia/type II TX/rEF HF Impression: His troponins are elevated but flat, signifying no acute TX. His BNPs are also elevated but flat, and because of this, his IV hydration was gentle up until now. Dr. De Leon performed a bedside Echo, which showed normal left ventricular size and wall thickness. LV apex severe hypokinesis, other wall motion normal, LVEF 55 to 60%. Doppler shows mild LV diastolic dysfunction. However, His echocardiogram dated 04/02/2022 shows an EF of 25-40% with hypokinetic/akinetic to third apical portion with moderate global hypokinesis. He will likely require guideline directed medical therapy however will hold off on beta-blockade given his slow rate marya w/ improved BP's while on midodrine and may benefit from slow introduction of ARB, DIAN inhibitor once his renal function improves. (11) Positive nasal culture for methicillin resistant Staphylococcus aureus Impression: Since he may also have systemic MRSA, remains on IV vancomycin given his RLL pneumonia with possible aspiration/bronchitis He was treated with ethanol nasal swabs as well. (12) Sepsis (resolved) Impression: Resolved. His blood pressure is better. WBC down and lactic acid corrected. The etiology appears to be a lobar pneumonia. Continue with IV fluids. Treat the underlying problem with antibiotics (13) Hypotension---resolved Impression: Resolved. On midodrine. Total critical care time: 40 minutes.
[2022-04-07] MEDS: LACTOBACILLUS RHAMNOSUS GG CAPSULE PO SCH (14:45)
[2022-04-07] MEDS: DOXYCYCLINE 100 MG TABLET PO SCH (22:47)
[2022-04-07] MEDS: AMOX/CLAV 875 MG/125 MG TABLET PO SCH (22:47)
[2022-04-07] MEDS: ATORVASTATIN 40 MG TABLET PO SCH (22:47)
[2022-04-08] MEDS: SODIUM CHLORIDE FLUSH 0.9% 10 ML SYRINGE IVP SCH ×4 (00:01→23:42)
[2022-04-08] MEDS: MAGNESIUM OXIDE 400 MG TABLET PO SCH ×3 (05:41→21:35)
[2022-04-08] MEDS: MULTIVITAMIN W/MINERALS TABLET PO SCH (05:41)
[2022-04-08] MEDS: PANTOPRAZOLE 40 MG TABLET PO SCH (05:42)
[2022-04-08 05:50] LABS: CALCIUM 7.9 mg/dL (8.5-10.3); IONIZED CALCIUM IF INDICATED YES
[2022-04-08 06:09] LABS: CALCIUM 7.8 mg/dL (8.5-10.3); CREATININE 1.4 mg/dL (0.6-1.2); MAGNESIUM 1.9 mg/dL (1.7-2.8); PHOSPHORUS 2.2 mg/dL (2.5-4.6)
[2022-04-08 06:34] LABS: CALCIUM, IONIZED 1.11 mmol/L (1.15-1.33); VBG PH 7.321 (7.31-7.41)
[2022-04-08] MEDS: SODIUM CHLORIDE INHALATION 3 ML NEB INH SCH ×4 (07:29→21:15)
[2022-04-08] MEDS: BUDESONIDE 0.5 MG/2 ML NEB INH SCH ×2 (07:29→21:15)
[2022-04-08] MEDS: lisinopriL 5 MG TABLET PO SCH (08:50)
[2022-04-08] MEDS: guaiFENesin 600 MG TABLET PO SCH ×2 (08:51→16:43)
[2022-04-08] MEDS: CHOLECALCIFEROL 25 MCG TABLET PO SCH (08:51)
[2022-04-08] MEDS: LACTOBACILLUS RHAMNOSUS GG CAPSULE PO SCH (08:51)
[2022-04-08] MEDS: SERTRALINE 25 MG TABLET PO SCH (08:51)
[2022-04-08] MEDS: SODIUM PHOSPHATE 15 MMOL in SODIUM CHLORIDE 0.9% 250 ML IV SCH ×2 (08:51→13:40)
[2022-04-08] MEDS: ethyl alcohoL 62% SWAB AMPULE NAS SCH ×2 (08:51→21:34)
[2022-04-08] MEDS: POTASSIUM CHLORIDE 10 MEQ CAPSULE PO SCH (08:51)
[2022-04-08] MEDS: AMOX/CLAV 875 MG/125 MG TABLET PO SCH ×2 (08:51→21:35)
[2022-04-08] MEDS: DOXYCYCLINE 100 MG TABLET PO SCH ×2 (08:51→21:35)
[2022-04-08] MEDS: ASPIRIN CHEW 81 MG TABLET PO SCH (08:51)
[2022-04-08] MEDS: FUROSEMIDE 20 MG/2 ML VIAL IVP SCH (08:52)
[2022-04-08] MEDS: HEPARIN 5,000 UNIT/ML VIAL SUBQ SCH ×2 (08:52→21:37)
[2022-04-08] MEDS ORDERED: polyethylene glycoL 3350 17 GM PACKET PO PRN (11:29)
--- NOTE | 2022-04-08 11:41 | PROVIDER PROGRESS NOTE ---
Progress Note HPI: Patient seen at bedside with no hypoxemic or chest pain events and patient has improvement to his slow rate atrial fibrillation with bradycardia. Patient states that he is feeling weak although his appetite has improved and has been on Zoloft. He denies chest pain, headaches, visual disturbances, palpitations, jaw claudication, GI/ symptoms, MP rash or joint tenderness. Systolic blood pressures have improved in the 130s and heart rate ranging between 50s to 60s. She has been discontinued off of midodrine as well as aminophylline. Previously wanting a pacemaker but was now dissuaded by prior medical editor and was evaluated previously at [facility] and also told that he would not be a good candidate for his pacemaker. He has elected on deferral of pacemaker for now and with limited intervention. Palliative care services were requested. Patient has a weak moist productive cough and is receiving RT therapies. On examination: Afebrile, 70's atrial fibrillation on telemetry. General: Patient is pleasant, cooperative, cachectic and ill-appearing HEENT: NCAT, no buccal lesions, oropharynx clear Neck: No JVD, no bruits CV/lungs: Irregular irregular, no murmurs, gallops, clicks. No rubs. CTA BL. Abdomen: Soft and benign Musculoskeletal: Sarcopenia noted Extremities/skin: 2+ pulses dorsalis pedis, no edema, clubbing or cyanosis Neuro: Grossly intact. Labs: Reviewed Imaging studies: Reviewed EKG shows sinus rhythm at 73 bpm with atrial premature complexes SV complex with short R-R interval, abnormal T consider ischemia to the lateral leads. Assessment/plan: (1) CAP (community acquired pneumonia) Impression: There is a right lower lobe pneumonia w/ possible mucus plugging related to aspiration/bronchitis on imaging. He has intermittent sputum production, weak cough, status post azithromycin course and previously on Rocephin plus vancomycin. Day#610 of total abx treatment. Blood cultures were drawn, and are negative to date. Await cx results to tailor meds. Now on Augmentin plus doxycycline for a total of 10 days of antibiotic treatment. Mucinex and probiotics. Non-Hypoxemic and not requiring oxygenation however will continue with RT, I-S, pulmonary toileting, nebs improved sputum production with supportive treatment. Procalcitonin elevated at 1.51 Procalcitonin recheck to follow. (2) Sick sinus syndrome Impression: Patient had some type of ablation done 1 year ago in [facility] per information obtained from son from [place]. There is prior history of paroxysmal atrial fibrillation but does not have or has been on beta-blockade. Patient sees his primary medical editor Dr Arben Spivey [facility] at [place]. Patient presented with previous V. tach monomorphic which stopped spontaneously and was asymptomatic however did develop junctional bradycardia and in light of his RVR A. fib for which patient does have a history of atrial fibrillation and not anticoagulated we will forego full anticoagulation in the setting of his comorbidities and age and elevated bleeding risk. He initially wanted a pacemak er and a call to [facility] had been made previously for transfer to higher level care however he has stated that his medical editor previously had stated that he would not be a candidate for pacemaker placement and currently has decided on foregoing pacemaker placement at this time as he would need to complete antibiotic therapy and essentially would go against his goals of care as a DNR if pacemaker placement was pursued. Aminophylline d/c'ed on 04/06 as this may induce arrhythmias and currently holding beta-blockade due to his soft BPs. Defer off digoxin due to his poor creatinine clearance although improved renal function. Continue to correct underlying severe electrolyte disturbances. EKG reviewed and prior echo shows, LV apex severe hypokinesis, other wall motion normal, LVEF 55 to 60%. Doppler shows mild LV diastolic dysfunction (grade 1). He has a preserved LVEF, therefore defer off Amiodarone. Due to stability of patient's electrolytes and no use of external pacer patches patient will be transitioned to [facility] telemetry. [id number] Score is 3 pts. However, his HASBLED score is 3 pts which puts him at 5.8% or a high risk of bleeding events and will forego off of DOAC, Coumadin or full AC. TFTs essentially normal. Palliative care services have been requested to address goals of care and advance care planning. (3) CATIA (acute kidney injury)--Improved Impression: Likely from dehydration, failure to thrive with poor hydration as it pertains to his postacute COVID syndrome and was living in [place] for 3 months. BUN/creatinine are improving daily with IV fluids. He still is clinically dehydrated but has improved now. We will continue with IV hydration. Promote p.o. fluid intake now that his oral mucosa is not cracked and painful. Avoid nephrotoxins. Follow BMP daily (4) Electrolyte disturbance; resolving Impression: He had reported taking in nearly no oral intake for 2 weeks when his COVID started and he developed no appetite. Electrolyte repletion has slowly improved his deficits and resolved with improvement to his creatinine function. He is now slightly hypokalemic as he is receiving 10 mEq of KCl daily and will be started on low-dose Lasix in the setting of his improved CATIA. (5) NSTEMI/rEF HF Impression: NSTEMI by criteria and clinically as evidence of hypokinesis and MWA seen w/ rEF HF on ECHO, as trops were peaked at 2784 although lacks CP or anginal eq., on ASA only and hep DVT ppx. HASBLED was high risk for bleed. His troponins are elevated and now downtrending. His BNPs are also elevated. IVF's on hold now as he has evidence of CM seen on ECHO. Dr. De Leon performed a bedside Echo, which showed normal left ventricular size and wall thickness. LV apex severe hypokinesis, other wall motion normal, LVEF 55 to 60%. Doppler shows mild LV diastolic dysfunction. However, His echocardiogram dated 04/02/2022 shows an EF of 25-40% with hypokinetic/akinetic to third apical portion with moderate global hypokinesis. Unions peaked at 2784.9 and with a last troponin at 123.5 on 04/08. He will likely require guideline directed medical therapy however will hold off on beta-blockade given his slow rate marya w/ improved BP's while on midodrine and may benefit from slow introduction of low dose DIAN inhibitor and lasix given his slow rise in his potassium although he continues on KCL at 10 meq daily. (6) QT prolongation Impression: Patient has been discontinued off of Remeron due to prolonged QT and placed on Zoloft to minimize QT prolongation given his SSS. Resolved/stable medical conditions. Acute Dehydration/Hypovolemia; resolved Impression: This patient described almost no p.o. intake for about 2 weeks and claims he had a 34 pound weight loss in 2 weeks. Will continue with IV fluids.Will encourage po intake as he has FTT/Anorexia related to his post acute covid syndrome and depression. Nutrition consult regarding malnutrition screen and any recommendations appreciated. Severe protein calorie malnutrition (Present on admission). Impression: The patient has severe muscle wasting and loss of fat, Has had nutritional intake of less than 50% of recommended for the last 2 weeks, has weight loss of greater than 2% in the last week, weight is down 16 kg which is 21% down in the past month, he is very weak with significantly reduced functional capacity and needs to be fed, needs pured food. Optimize nutritional and medical management with the correction of underlying electrolyte disturbances as per above. Patient does have bouts of blood pressures systolics in the 90s and will provide midodrine 5 mg p.o. 3 times daily remains on aspirin and will continue with medical management and will provide Hx of coronary artery disease Impression: The patient's son from [place] was at bedside and provided details of the pt's Cad Hx.. The patient used to live with this son and haS all his Cardiology care in [place]. The patient reports that he had yearly stress tests to check his CABGs. The son was able to show Dr. Ruiz a report: The patient had a [employer] nuclear stress test in early 2020 and the nuclear scan showed 1% to 3% ischemic burden, and overall normal EF it reported (no % was given). We will continue with the patient's daily aspirin and and will need GDMTx given his likely ischemic CM with rEF seen on ECHO. Positive nasal culture for methicillin resistant Staphylococcus aureus Impression: Since he may also have systemic MRSA, remains on IV vancomycin given his RLL pneumonia with possible aspiration/bronchitis He was treated with ethanol nasal swabs as well. Sepsis (resolved) Impression: Resolved. His blood pressure is better. WBC down and lactic acid corrected. The etiology appears to be a lobar pneumonia. Continue with IV fluids. Treat the underlying problem with antibiotics Hypotension---resolved Impression: Resolved. Off of midodrine. Post-acute covid syndrome/Depression/Physical deconditioning Impression: PT/OT to make recommendations for SNF plcmt. Mobility, strength and gait deficits secondary to medical conditions per above and is on zoloft improve his postacute COVID syndrome/depression symptoms and to improve his appetite. In addition, he has significant physical deconditioning which PT/OT will assess for rehab/SNF potential.
[2022-04-08] MEDS: CALCIUM CARB (OYSTER SHELL) 500 MG TABLET PO SCH ×3 (12:14→21:35)
[2022-04-08] MEDS: D5.45NS W/20 MEQ KCL 1,000 ML IV SCH (19:47)
[2022-04-08] MEDS: ATORVASTATIN 40 MG TABLET PO SCH (21:35)
[2022-04-09 05:29] LABS: CALCIUM 7.7 mg/dL (8.5-10.3); CREATININE 1.5 mg/dL (0.6-1.2); MAGNESIUM 1.4 mg/dL (1.7-2.8); PHOSPHORUS 3.4 mg/dL (2.5-4.6); POTASSIUM 4.7 mmol/L (3.5-5.0)
[2022-04-09] MEDS: PANTOPRAZOLE 40 MG TABLET PO SCH (06:07)
[2022-04-09] MEDS: MULTIVITAMIN W/MINERALS TABLET PO SCH (06:07)
[2022-04-09] MEDS: CALCIUM CARB (OYSTER SHELL) 500 MG TABLET PO SCH ×3 (06:07→20:01)
[2022-04-09] MEDS: MAGNESIUM OXIDE 400 MG TABLET PO SCH ×3 (06:07→20:00)
[2022-04-09] MEDS ORDERED: MAGNESIUM SULFATE 2 GRAM 2 GM/50 ML BAG IV ONE (07:20)
[2022-04-09] MEDS: BUDESONIDE 0.5 MG/2 ML NEB INH SCH ×2 (07:37→20:50)
[2022-04-09] MEDS: SODIUM CHLORIDE INHALATION 3 ML NEB INH SCH ×4 (07:37→20:53)
[2022-04-09] MEDS: POTASSIUM CHLORIDE 10 MEQ CAPSULE PO SCH (08:23)
[2022-04-09] MEDS: SODIUM CHLORIDE FLUSH 0.9% 10 ML SYRINGE IVP SCH ×2 (08:23→18:59)
[2022-04-09] MEDS: guaiFENesin 600 MG TABLET PO SCH ×2 (08:23→18:58)
[2022-04-09] MEDS: ACETAMINOPHEN 325 MG TABLET PO PRN (09:26)
[2022-04-09 09:56] LABS: CALCIUM, IONIZED 1.07 mmol/L (1.15-1.33); VBG PH 7.37 (7.31-7.41)
[2022-04-09] MEDS: HEPARIN 5,000 UNIT/ML VIAL SUBQ SCH ×2 (09:57→20:59)
[2022-04-09] MEDS: FUROSEMIDE 20 MG/2 ML VIAL IVP SCH (09:59)
[2022-04-09] MEDS: SODIUM CHLORIDE FLUSH 0.9% 10 ML SYRINGE IVP PRN ×3 (09:59→14:58)
[2022-04-09] MEDS: AMOX/CLAV 875 MG/125 MG TABLET PO SCH ×2 (10:00→20:00)
[2022-04-09] MEDS: ethyl alcohoL 62% SWAB AMPULE NAS SCH ×2 (10:00→20:00)
[2022-04-09] MEDS: ASPIRIN CHEW 81 MG TABLET PO SCH (10:00)
[2022-04-09] MEDS: DOXYCYCLINE 100 MG TABLET PO SCH ×2 (10:00→20:00)
[2022-04-09] MEDS: CHOLECALCIFEROL 25 MCG TABLET PO SCH (10:00)
[2022-04-09] MEDS: SERTRALINE 25 MG TABLET PO SCH (10:00)
[2022-04-09] MEDS: LACTOBACILLUS RHAMNOSUS GG CAPSULE PO SCH (10:00)
[2022-04-09] MEDS: lisinopriL 5 MG TABLET PO SCH (10:13)
[2022-04-09] MEDS ORDERED: CALCIUM GLUCONATE IN NS 0.9% 2,000 MG/100 ML BAG IV ONE (11:40)
--- NOTE | 2022-04-09 12:26 | PROVIDER PROGRESS NOTE ---
Progress Note HPI: Patient seen at bedside with no hypoxemic or chest pain events and patient has improvement to his slow rate atrial fibrillation with bradycardia. Patient states that he is feeling weak although his appetite has improved and has been on Zoloft. He denies chest pain, headaches, visual disturbances, palpitations, jaw claudication, GI/ symptoms, MP rash or joint tenderness. Systolic blood pressures have improved in the 130s and heart rate ranging between 50s to 60s. She has been discontinued off of midodrine as well as aminophylline. Previously wanting a pacemaker but was now dissuaded by prior exchange clerk and was evaluated previously at [facility] and also told that he would not be a good candidate for his pacemaker. He has elected on deferral of pacemaker for now and with limited intervention. Palliative care services were requested. Patient has a weak moist productive cough and is receiving RT therapies. Patient seen at bedside with blood pressures that are soft 109/72 prior to dose on second check holding per RN patient's lisinopril. HR variable 48-59 bpm in A. fib, potassium 4.7, creatinine 1.5, magnesium low at 1.4, procalcitonin down trended to 0.53 (1.51), last troponin on 04/08 was 123.5. Patient's ionized calcium was slightly low. Patient has left lower extremity below the knee 8 out of 10 pain and does have a history of gout. Otherwise his appetite has improved with improved mobility and PT working with patient who will likely require SNF placement. On examination: Afebrile, cachectic, ill-appearing, frail General: Patient is pleasant, cooperative, cachectic and ill-appearing HEENT: NCAT, no buccal lesions, oropharynx clear Neck: No JVD, no bruits CV/lungs: Bradycardia, Irregular irregular, no murmurs, gallops, clicks. No rubs. CTA BL. Abdomen: Soft and benign Musculoskeletal: Sarcopenia noted Extremities/skin: Left lower extremity infrapatellar region painful without warmth with elbow ROM. No crepitus or fluctuance to patella. 2+ pulses dorsalis pedis, no edema, clubbing or cyanosis Neuro: Grossly intact. Labs: Reviewed Imaging studies: Reviewed EKG shows sinus rhythm at 73 bpm with atrial premature complexes SV complex with short R-R interval, abnormal T consider ischemia to the lateral leads. Assessment/plan: (1) CAP (community acquired pneumonia) Impression: There is a right lower lobe pneumonia w/ possible mucus plugging related to aspiration/bronchitis on imaging. He has intermittent sputum production, weak cough, status post azithromycin course and previously on Rocephin plus vancomycin. Day#7/10 of total abx treatment. Blood cultures were drawn, and are negative to date. Await cx results to tailor meds. Now on Augmentin plus doxycycline for a total of 10 days of antibiotic treatment. Mucinex and probiotics. Non-Hypoxemic and not requiring oxygenation however will continue with RT, I-S, pulmonary toileting, nebs improved sputum production with supportive treatment. PCL has improved to 0.53 (1.51). (2) Sick sinus syndrome Impression: Patient had some type of ablation done 1 year ago in [facility] per information obtained from son from [place]. There is prior history of paroxysmal atrial fibrillation but does not have or has been on beta-blockade. Patient sees his primary exchange clerk Dr Arben Spivey [facility] at [place]. Patient presented with previous V. tach monomorphic which stopped spontaneously and was asymptomatic however did develop junctional bradycardia and in light of his RVR A. fib for which patient does have a history of atrial fibrillation and not anticoagulated we will forego full anticoagulation in the setting of his comorbidities and age and elevated bleeding risk. He initially wanted a pacemaker and a call to [facility] had been made previously for transfer to higher level care however he has stated that his exchange clerk previously had stated that he would not be a candidate for pacemaker placement and currently has decided on foregoing pacemaker placement at this time as he would need to complete antibiotic therapy and essentially would go against his goals of care as a DNR if pacemaker placement was pursued. Aminophylline d/c'ed on 04/06 as this may induce arrhythmias and currently holding beta-blockade due to his soft BPs. Defer off digoxin due to his poor creatinine clearance although improved renal function. Continue to correct underlying severe electrolyte disturbances. EKG reviewed and prior echo shows, LV apex severe hypokinesis, other wall motion normal, LVEF 55 to 60%. Doppler shows mild LV diastolic dysfunction (grade 1). He has a preserved LVEF, therefore defer off Amiodarone. Due to stability of patient's electrolytes and no use of external pacer patches patient will be transitioned to [facility] telemetry. [id number] Score is 3 pts. However, his HASBLED score is 3 pts which puts him at 5.8% or a high risk of bleeding events and will forego off of DOAC, Coumadin or full AC. TFTs essentially normal. Palliative care services have been requested to address goals of care and advance care planning. (3) CATIA (acute kidney injury)--Improved Impression: Likely from dehydration, failure to thrive with poor hydration as it pertains to his postacute COVID syndrome and was living in [facility] for 3 months. BUN/creatinine are improving daily with IV fluids. He still is clinically dehydrated but has improved now. Patient IV hydration has now been saline locked as he appears to be slightly volume up on I's and O's. Promote p.o. fluid intake now that his oral mucosa is not cracked and painful. Avoid nephrotoxins. Follow BMP daily (4) Electrolyte disturbance; resolving Impression: He had reported taking in nearly no oral intake for 2 weeks when his COVID started and he developed no appetite. Electrolyte repletion has slowly improved his deficits and resolved with improvement to his creatinine function. Was previously hyperkalemic as he was receiving 10 mEq of KCl daily and on low- dose Lasix in the setting of his improved CATIA. He is also receiving lisinopril given his reduced EF HF. Pt still appears to be deficient in magnesium and calcium which will be provided with magnesium oxide and calcium carbonate. IV mag sulfate/calcium gluconate prn. (5) NSTEMI/rEF HF Impression: NSTEMI by criteria and clinically as evidence of hypokinesis and MWA seen w/ rEF HF on ECHO, as trops were peaked at 2784 although lacks CP or anginal eq., on ASA only and hep DVT ppx. HASBLED was high risk for bleed. His troponins are elevated and now downtrending. His BNPs are also elevated. IVF's on hold now as he has evidence of CM seen on ECHO. Dr. De Leon performed a bedside Echo, which showed normal left ventricular size and wall thickness. LV apex severe hypokinesis, other wall motion normal, LVEF 55 to 60%. Doppler shows mild LV diastolic dysfunction. However, His echocardiogram dated 04/02/2022 shows an EF of 25-40% with hypokinetic/akinetic to third apical portion with moderate global hypokinesis. Unions peaked at 2784.9 and with a last troponin at 123.5 on 04/08. He will likely require guideline directed medical therapy however will hold off on beta-blockade given his slow rate marya w/ improved BP's while on midodrine and may benefit from slow introduction of low dose DIAN inhibitor and lasix given his slow rise in his potassium although he continues on KCL at 10 meq daily which will be discontinued. Resolved/stable medical conditions. Acute Dehydration/Hypovolemia; resolved Impression: This patient described almost no p.o. intake for about 2 weeks and claims he had a 34 pound weight loss in 2 weeks. IVF's have been saline given his reduced EF HF and improvement to his blood pressures. Will encourage po intake as he has FTT/Anorexia related to his post acute covid syndrome and depression. Severe protein calorie malnutrition (Present on admission). Impression: The patient has severe muscle wasting and loss of fat, Has had nutritional intake of less than 50% of recommended for the last 2 weeks, has weight loss of greater than 2% in the last week, weight is down 16 kg which is 21% down in the past month, he is very weak with significantly reduced functional capacity and needs to be feed, needs pured food. Optimize nutritional and medical management with the correction of underlying electrolyte disturbances as per above. Nutrition consult regarding malnutrition screen and any recommendations appreciated. Hx of coronary artery disease Impression: The patient's son from [place] was at bedside and provided details of the pt's Cad Hx.. The patient used to live with this son and haS all his Cardiology care in [place]. The patient reports that he had yearly stress tests to check his CABGs. The son was able to show Dr. Ruiz a report: The patient had a [employer] nuclear stress test in early 2020 and the nuclear scan showed 1% to 3% ischemic burden, and overall normal EF it reported (no % was given). We will continue with the patient's daily aspirin and and will need GDMTx given his likely ischemic CM with rEF seen on ECHO. QT prolongation---Resolved Impression: Patient has been discontinued off of Remeron due to prolonged QT and placed on Zoloft to minimize QT prolongation given his SSS. Positive nasal culture for methicillin resistant Staphylococcus aureus Impression: Since he may also have systemic MRSA, remains on IV vancomycin given his RLL pneumonia with possible aspiration/bronchitis He was treated with ethanol nasal swabs as well. Sepsis (resolved) Impression: Resolved. His blood pressure is better. WBC down and lactic acid corrected. The etiology appears to be a lobar pneumonia. Continue with IV fluids. Treat the underlying problem with antibiotics Hypotension---improved Impression: Resolved. Off of midodrine. On low-dose Lasix/lisinopril given his reduced EF HF w/ holding parameters. Post-acute covid syndrome/Depression/Physical deconditioning Impression: PT/OT to make recommendations for SNF plcmt. Mobility, strength and gait deficits secondary to medical conditions per above and is on zoloft improve his postacute COVID syndrome/depression symptoms and to improve his appetite. In addition, he has significant physical deconditioning which PT/OT will assess for rehab/SNF potential. Bilateral lower extremity pain (left greater than right) History of gout. Check uric acid level. Start colchicine/allopurinol renal adjusted with the assistance of pharmacy. Unfortunately cannot dispense NSAIDs given his CATIA and receiving Lasix and lisinopril.
[2022-04-09] MEDS: IPRATROPIUM/ALBUTEROL 3 ML NEB INH PRN ×2 (14:29→20:47)
[2022-04-09] MEDS: ATORVASTATIN 40 MG TABLET PO SCH (20:00)
[2022-04-09] MEDS: CELECOXIB 100 MG CAPSULE PO SCH (20:00)
[2022-04-10] MEDS: SODIUM CHLORIDE FLUSH 0.9% 10 ML SYRINGE IVP SCH ×3 (00:32→16:32)
[2022-04-10 05:11] LABS: BASOPHILS % (AUTO) 0.3 %; EOSINOPHILS # (AUTO) 0.1 10^3/uL (0.0-0.7); EOSINOPHILS % (AUTO) 1.3 %; HCT - HEMATOCRIT 28.8 % (42.0-52.0); HGB - HEMOGLOBIN 8.9 g/dL (14.0-18.0); LYMPHOCYTES # (AUTO) 0.6 10^3/uL (1.5-3.5); LYMPHOCYTES % (AUTO) 7.5 %; MEAN CORPUSCULAR HEMOGLOBIN 28.8 pg (27.0-31.0); MEAN CORPUSCULAR HGB CONC 30.9 g/dL (32.0-36.0); MEAN CORPUSCULAR VOLUME 93.2 fL (80.0-94.0); MEAN PLATELET VOLUME 9.7 fL (7.4-11.4); MONOCYTES # (AUTO) 0.2 10^3/uL (0.0-1.0); MONOCYTES % (AUTO) 3.2 %; NEUTROPHILS # (AUTO) 6.5 10^3/uL (1.5-6.6); NEUTROPHILS % (AUTO) 86.6 %; PLT - PLATELET COUNT 244 10^3/uL (130-450); RED BLOOD COUNT 3.09 10^6/uL (4.70-6.10); RED CELL DISTRIBUTION WIDTH 14.7 % (12.0-15.0); WHITE BLOOD COUNT 7.5 x10^3/uL (4.8-10.8)
[2022-04-10 05:20] LABS: CALCIUM 7.9 mg/dL (8.5-10.3); CREATININE 1.4 mg/dL (0.6-1.2); MAGNESIUM 1.7 mg/dL (1.7-2.8); PHOSPHORUS 3.4 mg/dL (2.5-4.6); POTASSIUM 4.6 mmol/L (3.5-5.0)
[2022-04-10] MEDS: MAGNESIUM OXIDE 400 MG TABLET PO SCH ×3 (05:54→21:32)
[2022-04-10] MEDS: PANTOPRAZOLE 40 MG TABLET PO SCH (05:54)
[2022-04-10] MEDS: CALCIUM CARB (OYSTER SHELL) 500 MG TABLET PO SCH ×3 (05:54→21:32)
[2022-04-10] MEDS: MULTIVITAMIN W/MINERALS TABLET PO SCH (05:54)
[2022-04-10] MEDS: BUDESONIDE 0.5 MG/2 ML NEB INH SCH ×2 (07:30→20:32)
[2022-04-10] MEDS: SODIUM CHLORIDE INHALATION 3 ML NEB INH SCH ×4 (07:30→20:32)
[2022-04-10] MEDS: POTASSIUM CHLORIDE 10 MEQ CAPSULE PO SCH (08:37)
[2022-04-10] MEDS: ethyl alcohoL 62% SWAB AMPULE NAS SCH ×2 (08:37→21:32)
[2022-04-10] MEDS: ASPIRIN CHEW 81 MG TABLET PO SCH (08:37)
[2022-04-10] MEDS: LACTOBACILLUS RHAMNOSUS GG CAPSULE PO SCH (08:37)
[2022-04-10] MEDS: DOXYCYCLINE 100 MG TABLET PO SCH ×2 (08:38→21:32)
[2022-04-10] MEDS: AMOX/CLAV 875 MG/125 MG TABLET PO SCH ×2 (08:38→21:31)
[2022-04-10] MEDS: guaiFENesin 600 MG TABLET PO SCH ×2 (08:38→16:32)
[2022-04-10] MEDS: HEPARIN 5,000 UNIT/ML VIAL SUBQ SCH ×2 (08:38→21:32)
[2022-04-10] MEDS: FUROSEMIDE 20 MG/2 ML VIAL IVP SCH (08:38)
[2022-04-10] MEDS: SERTRALINE 25 MG TABLET PO SCH (08:38)
[2022-04-10] MEDS: lisinopriL 5 MG TABLET PO SCH (08:38)
[2022-04-10] MEDS: CELECOXIB 100 MG CAPSULE PO SCH ×2 (08:38→21:32)
[2022-04-10] MEDS: CHOLECALCIFEROL 25 MCG TABLET PO SCH (08:54)
--- NOTE | 2022-04-10 09:05 | PROVIDER PROGRESS NOTE ---
Progress Note HPI: Patient seen at bedside with no hypoxemic or chest pain events and patient has improvement to his slow rate atrial fibrillation with bradycardia. Patient states that he is feeling weak although his appetite has improved and has been on Zoloft. He denies chest pain, headaches, visual disturbances, palpitations, jaw claudication, GI/ symptoms, MP rash or joint tenderness. Systolic blood pressures have improved in the 130s and heart rate ranging between 50s to 60s. She has been discontinued off of midodrine as well as aminophylline. Previously wanting a pacemaker but was now dissuaded by prior hat finishing materials preparer and was evaluated previously at [facility] and also told that he would not be a good candidate for his pacemaker. He has elected on deferral of pacemaker for now and with limited intervention. Palliative care services were requested. Patient has a weak moist productive cough and is receiving RT therapies. Patient seen at bedside with improvement to his overall clinical status. He is with heart rate of 58 to 72 bpm with blood pressure 120/55 (105/53) at 100% O2 saturation room air. Patient has stated that his appetite has improved and his electrolytes have improved with a creatinine 1.4, potassium 4.6, calcium 7.9 and magnesium of 1.7. His telemetry has been discontinued as he has sick sinus syndrome however deferring pacemaker placement. He denies fevers, cough has improved, no chest pain, no GI or symptoms, [employer] rash or joint tenderness. He is awaiting SNF placement. On examination: Afebrile, cachectic, ill-appearing, frail General: Patient is pleasant, cooperative, cachectic and ill-appearing HEENT: NCAT, no buccal lesions, oropharynx clear Neck: No JVD, no bruits CV/lungs: Bradycardia, Irregular irregular, no murmurs, gallops, clicks. No rubs. CTA BL. Abdomen: Soft and benign Musculoskeletal: Sarcopenia noted Extremities/skin: Left lower extremity infrapatellar region painful without warmth with elbow ROM. No crepitus or fluctuance to patella. 2+ pulses dorsalis pedis, no edema, clubbing or cyanosis Neuro: Grossly intact. Labs: Reviewed Imaging studies: Reviewed EKG shows sinus rhythm at 73 bpm with atrial premature complexes SV complex with short R-R interval, abnormal T consider ischemia to the lateral leads. Assessment/plan: (1) CAP (community acquired pneumonia) Impression: There is a right lower lobe pneumonia w/ possible mucus plugging related to aspiration/bronchitis on imaging. He has intermittent sputum production, weak cough, status post azithromycin course and previously on Rocephin plus vancomycin. Blood cultures were drawn, and are negative to date. Patient's sputum gram stain and culture shows Staph aureus with sensitivities pending, he is growing yeast as well which we will not treat. Day#8/10 of total abx treatment. Now on Augmentin plus doxycycline for a total of 10 days of antibiotic treatment. Mucinex and probiotics. Non-Hypoxemic and not requiring oxygenation however will continue with RT, I-S, pulmonary toileting, nebs improved sputum production with supportive treatment. PCL has improved to 0.53 (1.51). (2) Sick sinus syndrome Impression: Patient had some type of ablation done 1 year ago in [facility] per information obtained from son from [place]. There is prior history of paroxysmal atrial fibrillation but does not have or has been on beta-blockade. Patient sees his primary hat finishing materials preparer Dr Arben Spivey [facility] at [place]. Patient presented with previous V. tach monomorphic which stopped spontaneously and was asymptomatic however did develop junctional bradycardia and in light of his RVR A. fib for which patient does have a history of atrial fibrillation and not anticoagulated we will forego full anticoagulation in the setting of his comorbidities and age and elevated bleeding risk. He initially wanted a pacemaker and a call to [place] had been made previously for transfer to higher level care however he has stated that his hat finishing materials preparer previously had stated that he would not be a candidate for pacemaker placement and currently has decided on foregoing pacemaker placement at this time as he would need to complete antibiotic therapy and essentially would go against his goals of care as a DNR if pacemaker placement was pursued. Aminophylline d/c'ed on 04/06 as this may induce arrhythmias and currently holding beta-blockade due to his soft BPs. Defer off digoxin due to his poor creatinine clearance although improved renal function. Continue to correct underlying severe electrolyte disturbances. EKG reviewed and prior echo shows, LV apex severe hypokinesis, other wall motion normal, LVEF 55 to 60%. Doppler shows mild LV diastolic dysfunction (grade 1). He has a preserved LVEF, therefore defer off Amiodarone. Due to stability of patient's electrolytes and no use of external pacer patches patient will be transitioned to [facility] telemetry. [id number] Score is 3 pts. However, his HASBLED score is 3 pts which puts him at 5.8% or a high risk of bleeding events and will forego off of DOAC, Coumadin or full AC. TFTs essentially normal. Palliative care services have been requested to address goals of care and advance care planning. (3) CATIA (acute kidney injury)--Improved Impression: Likely from dehydration, failure to thrive with poor hydration as it pertains to his postacute COVID syndrome and was living in [place] for 3 months. BUN/creatinine are improving daily with IV fluids. He still is clinically dehydrated but has improved now. Patient IV hydration has now been saline locked as he appears to be slightly volume up on I's and O's. Promote p.o. fluid intake now that his oral mucosa is not cracked and painful. Avoid nephrotoxins. Follow BMP daily (4) Electrolyte disturbance; resolving Impression: He had reported taking in nearly no oral intake for 2 weeks when his COVID started and he developed no appetite. Electrolyte repletion has slowly improved his deficits and resolved with impro vement to his creatinine function. Was previously hyperkalemic (resolved) as he was receiving 10 mEq of KCl daily and on low-dose Lasix in the setting of his improved CATIA. He is also receiving lisinopril given his reduced EF HF. Patient's hypocalcemia and hypomagnesemia have improved. IV mag sulfate/calcium gluconate prn. (5) NSTEMI/rEF HF Impression: NSTEMI by criteria and clinically as evidence of hypokinesis and MWA seen w/ rEF HF on ECHO, as trops were peaked at 2784 although lacks CP or anginal eq., on ASA only and hep DVT ppx. HASBLED was high risk for bleed. His troponins are elevated and now downtrending. His BNPs are also elevated. IVF's on hold now as he has evidence of CM seen on ECHO. Dr. De Leon performed a bedside Echo, which showed normal left ventricular size and wall thickness. LV apex severe hypokinesis, other wall motion normal, LVEF 55 to 60%. Doppler shows mild LV diastolic dysfunction. However, His echocardiogram dated 04/02/2022 shows an EF of 25-40% with hypokinetic/akinetic to third apical portion with moderate global hypokinesis. Unions peaked at 2784.9 and with a last troponin at 123.5 on 04/08. He will likely require guideline directed medical therapy however will hold off on beta-blockade given his slow rate marya w/ improved BP's while on midodrine and may benefit from slow introduction of low dose DIAN inhibitor and lasix given his slow rise in his potassium although he continues on KCL at 10 meq daily which will be discontinued. Resolved/stable medical conditions. Acute Dehydration/Hypovolemia; resolved Impression: This patient described almost no p.o. intake for about 2 weeks and claims he had a 34 pound weight loss in 2 weeks. IVF's have been saline given his reduced EF HF and improvement to his blood pressures. Will encourage po intake as he has FTT/Anorexia related to his post acute covid syndrome and depression. Severe protein calorie malnutrition (Present on admission). Impression: The patient has severe muscle wasting and loss of fat, Has had nutritional intake of less than 50% of recommended for the last 2 weeks, has weight loss of greater than 2% in the last week, weight is down 16 kg which is 21% down in the past month, he is very weak with significantly reduced functional capacity and needs to be feed, needs pured food. Optimize nutritional and medical management with the correction of underlying electrolyte disturbances as per above. Nutrition consult regarding malnutrition screen and any recommendations appreciated. Hx of coronary artery disease (stable) Impression: The patient's son from [place] was at bedside and provided details of the pt's Cad Hx.. The patient used to live with this son and haS all his Cardiology care in [place]. The patient reports that he had yearly stress tests to check his CABGs. The son was able to show Dr. Ruiz a report: The patient had a [employer] nuclear stress test in early 2020 and the nuclear scan showed 1% to 3% ischemic burden, and overall normal EF it reported (no % was given). We will continue with the patient's daily aspirin and and will need GDMTx given his likely ischemic CM with rEF seen on ECHO. QT prolongation---Resolved Impression: Patient has been discontinued off of Remeron due to prolonged QT and placed on Zoloft to minimize QT prolongation given his SSS. Positive nasal culture for methicillin resistant Staphylococcus aureus Impression: Since he may also have systemic MRSA, remains on IV vancomycin given his RLL pneumonia with possible aspiration/bronchitis He was treated with ethanol nasal swabs as well. Sepsis (resolved) Impression: Resolved. His blood pressure is better. WBC down and lactic acid corrected. The etiology appears to be a lobar pneumonia. Continue with IV fluids. Treat the underlying problem with antibiotics Hypotension---improved Impression: Resolved. Off of midodrine. On low-dose Lasix/lisinopril given his reduced EF HF w/ holding parameters. Post-acute covid syndrome/Depression/Physical deconditioning Impression: PT/OT to make recommendations for SNF plcmt. Mobility, strength and gait deficits secondary to medical conditions per above and is on zoloft improve his postacute COVID syndrome/depression symptoms and to improve his appetite. In addition, he has significant physical deconditioning which PT/OT will assess for rehab/SNF potential. Bilateral lower extremity pain (left greater than right) History of gout. However his uric acid level was not elevated and therefore patient will be provided Celebrex 100 mg p.o. twice daily with underlying CATIA we will watch closely.
[2022-04-10 10:09] LABS: % IRON SATURATION 19 % (20-50); IRON 21 ug/dL (45-182); TOTAL IRON BINDING CAPACITY 109 ug/dL (250-450); TRANSFERRIN 78 mg/dL (180-329)
[2022-04-10 10:44] LABS: FECAL OCCULT BLOOD (FIT) NEGATIVE (NEGATIVE)
[2022-04-10 10:46] LABS: CALCIUM, IONIZED 1.08 mmol/L (1.15-1.33); VBG PH 7.402 (7.31-7.41)
[2022-04-10] MEDS: ACETAMINOPHEN 325 MG TABLET PO PRN (16:31)
[2022-04-10] MEDS ORDERED: FERRIC GLUCONATE 125 MG in SODIUM CHLORIDE 0.9% 100ML 100 ML IV SCH (17:08)
[2022-04-10] MEDS: ATORVASTATIN 40 MG TABLET PO SCH (21:32)
[2022-04-11] MEDS: SODIUM CHLORIDE FLUSH 0.9% 10 ML SYRINGE IVP SCH ×3 (01:20→16:34)
[2022-04-11 05:49] LABS: CALCIUM, IONIZED 1.1 mmol/L (1.15-1.33); VBG PH 7.423 (7.31-7.41)
[2022-04-11 05:51] LABS: CREATININE 1.3 mg/dL (0.6-1.2); MAGNESIUM 1.7 mg/dL (1.7-2.8); PHOSPHORUS 2.7 mg/dL (2.5-4.6); POTASSIUM 4.4 mmol/L (3.5-5.0)
[2022-04-11] MEDS: MAGNESIUM OXIDE 400 MG TABLET PO SCH ×3 (06:22→20:41)
[2022-04-11] MEDS: PANTOPRAZOLE 40 MG TABLET PO SCH (06:22)
[2022-04-11] MEDS: MULTIVITAMIN W/MINERALS TABLET PO SCH (06:22)
[2022-04-11] MEDS: CALCIUM CARB (OYSTER SHELL) 500 MG TABLET PO SCH ×3 (06:22→20:41)
[2022-04-11] MEDS ORDERED: CALCIUM GLUCONATE IN NS 0.9% 2,000 MG/100 ML BAG IV ONE (06:41)
[2022-04-11] MEDS: BUDESONIDE 0.5 MG/2 ML NEB INH SCH ×2 (07:29→20:19)
[2022-04-11] MEDS: IPRATROPIUM/ALBUTEROL 3 ML NEB INH PRN (07:29)
[2022-04-11 07:33] LABS: BASOPHILS % (AUTO) 0.4 %; EOSINOPHILS # (AUTO) 0.2 10^3/uL (0.0-0.7); EOSINOPHILS % (AUTO) 2.6 %; HCT - HEMATOCRIT 30.8 % (42.0-52.0); HGB - HEMOGLOBIN 9.6 g/dL (14.0-18.0); LYMPHOCYTES # (AUTO) 0.7 10^3/uL (1.5-3.5); LYMPHOCYTES % (AUTO) 9.6 %; MEAN CORPUSCULAR HEMOGLOBIN 29.3 pg (27.0-31.0); MEAN CORPUSCULAR HGB CONC 31.2 g/dL (32.0-36.0); MEAN CORPUSCULAR VOLUME 93.9 fL (80.0-94.0); MEAN PLATELET VOLUME 9.5 fL (7.4-11.4); MONOCYTES # (AUTO) 0.2 10^3/uL (0.0-1.0); MONOCYTES % (AUTO) 3.5 %; NEUTROPHILS # (AUTO) 5.7 10^3/uL (1.5-6.6); NEUTROPHILS % (AUTO) 82.2 %; PLT - PLATELET COUNT 284 10^3/uL (130-450); RED BLOOD COUNT 3.28 10^6/uL (4.70-6.10); RED CELL DISTRIBUTION WIDTH 14.6 % (12.0-15.0)
[2022-04-11] MEDS: FERRIC GLUCONATE 125 MG in SODIUM CHLORIDE 0.9% 100ML 100 ML IV SCH (08:09)
[2022-04-11] MEDS: ASPIRIN CHEW 81 MG TABLET PO SCH (08:10)
[2022-04-11] MEDS: ethyl alcohoL 62% SWAB AMPULE NAS SCH ×2 (08:10→20:42)
[2022-04-11] MEDS: CHOLECALCIFEROL 25 MCG TABLET PO SCH (08:10)
[2022-04-11] MEDS: POTASSIUM CHLORIDE 10 MEQ CAPSULE PO SCH (08:10)
[2022-04-11] MEDS: guaiFENesin 600 MG TABLET PO SCH ×2 (08:11→16:33)
[2022-04-11] MEDS: CELECOXIB 100 MG CAPSULE PO SCH ×2 (08:11→20:41)
[2022-04-11] MEDS: MULTIVITAMIN TABLET PO SCH (08:11)
[2022-04-11] MEDS: SERTRALINE 25 MG TABLET PO SCH (08:11)
[2022-04-11] MEDS: FERROUS SULFATE 325 MG TABLET PO SCH ×2 (08:11→16:34)
[2022-04-11] MEDS: FUROSEMIDE 20 MG TABLET PO SCH (08:11)
[2022-04-11] MEDS: DOXYCYCLINE 100 MG TABLET PO SCH ×2 (08:11→20:41)
[2022-04-11] MEDS: AMOX/CLAV 875 MG/125 MG TABLET PO SCH ×2 (08:11→20:41)
[2022-04-11] MEDS: LACTOBACILLUS RHAMNOSUS GG CAPSULE PO SCH (08:11)
[2022-04-11] MEDS: FOLIC ACID 1 MG TABLET PO SCH (08:11)
[2022-04-11] MEDS: HEPARIN 5,000 UNIT/ML VIAL SUBQ SCH ×2 (08:24→20:42)
[2022-04-11] MEDS: lisinopriL 5 MG TABLET PO SCH (08:27)
--- NOTE | 2022-04-11 09:06 | PROVIDER PROGRESS NOTE ---
Progress Note HPI: Patient seen at bedside with no hypoxemic or chest pain events and patient has improvement to his slow rate atrial fibrillation with bradycardia. Patient states that he is feeling weak although his appetite has improved and has been on Zoloft. He denies chest pain, headaches, visual disturbances, palpitations, jaw claudication, GI/ symptoms, MP rash or joint tenderness. Systolic blood pressures have improved in the 130s and heart rate ranging between 50s to 60s. She has been discontinued off of midodrine as well as aminophylline. Previously wanting a pacemaker but was now dissuaded by prior fan runner and was evaluated previously at [facility] and also told that he would not be a good candidate for his pacemaker. He has elected on deferral of pacemaker for now and with limited intervention. Palliative care services were requested. Patient has a weak moist productive cough and is receiving RT therapies. Patient seen at bedside with improvement to his nutritional status although still with electrolyte deficiencies he has macrocytic anemia secondary to his deficiencies and severe protein calorie malnutrition as he has folic acid and iron deficiencies. He continues to have bouts of sinus bradycardia, sputum gram stain culture is growing MRSA although being covered with doxycycline and and Augmentin for anaerobic coverage. His potassium improved to 4.4, creatinine of 1.3, magnesium oxide uptitrated to 800 mg p.o. 3 times daily given his continued hypomagnesemia. Ionized calcium slightly low. Lasix will be switched to p.o. at 20 mg daily. His occult blood test was negative. VBG shows a pH of 7.423. Patient is otherwise in good spirits eating breakfast and tolerating physical therapy for which they are deciding whether he would benefit from PT at [facility] but tentatively he is approved for SNF placement. On examination: Afebrile, cachectic, ill-appearing, frail General: Patient is pleasant, cooperative, cachectic and ill-appearing HEENT: NCAT, no buccal lesions, oropharynx clear Neck: No JVD, no bruits CV/lungs: Bradycardia, Irregular irregular, no murmurs, gallops, clicks. No rubs. CTA BL. Abdomen: Soft and benign Musculoskeletal: Sarcopenia noted Extremities/skin: Left lower extremity infrapatellar region painful without warmth with elbow ROM. No crepitus or fluctuance to patella. 2+ pulses dorsalis pedis, no edema, clubbing or cyanosis Neuro: Grossly intact. Labs: Reviewed Imaging studies: Reviewed EKG shows sinus rhythm at 73 bpm with atrial premature complexes SV complex with short R-R interval, abnormal T consider ischemia to the lateral leads. Assessment/plan: (1) CAP (community acquired pneumonia)---MRSA Impression: There is a right lower lobe pneumonia w/ possible mucus plugging related to aspiration/bronchitis on imaging. He has intermittent sputum production, weak cough, status post azithromycin course and previously on Rocephin plus vancomycin. Blood cultures were drawn, and are negative to date. Patient is growing MRSA in his sputum and yeast which will not be treated. He is on day #9/10 of total antibiotic treatment on Augmentin plus doxycycline. Mucinex and probiotics. Non-Hypoxemic and not requiring oxygenation however will continue with RT, I-S, pulmonary toileting, nebs improved sputum production with support brain treatment. PCL has improved to 0.53 (1.51). (2) Sick sinus syndrome---Stable Impression: Patient had some type of ablation done 1 year ago in [facility] per information obtained from son from [place]. There is prior history of paroxysmal atrial fibrillation but does not have or has been on beta-blockade. Patient sees his primary fan runner Dr Arben Spivey [facility] at [place]. Patient presented with previous V. tach monomorphic which stopped spontaneously and was asymptomatic however did develop junctional bradycardia and in light of his RVR A. fib for which patient does have a history of atrial fibrillation and not anticoagulated we will forego full anticoagulation in the setting of his comorbidities and age and elevated bleeding risk. He initially wanted a pacemaker and a call to [place] had been made previously for transfer to higher level care however he has stated that his fan runner previously had stated that he would not be a candidate for pacemaker placement and currently has decided on foregoing pacemaker placement at this time as he would need to complete antibiotic therapy and essentially would go against his goals of care as a DNR if pacemaker placement was pursued. Aminophylline d/c'ed on 04/06 as this may induce arrhythmias and currently holding beta-blockade due to his soft BPs. Defer off digoxin due to his poor creatinine clearance although improved renal function. Continue to correct underlying severe electrolyte disturbances. EKG reviewed and prior echo shows, LV apex severe hypokinesis, other wall motion normal, LVEF 55 to 60%. Doppler shows mild LV diastolic dysfunction (grade 1). He has a preserved LVEF, therefore defer off Amiodarone. Due to stability of patient's electrolytes and no use of external pacer patches patient will be transitioned to [facility] telemetry. [id number] Score is 3 pts. However, his HASBLED score is 3 pts which puts him at 5.8% or a high risk of bleeding events and will forego off of DOAC, Coumadin or full AC. TFTs essentially normal. Palliative care services have been requested to address goals of care and advance care planning. (3) CATIA (acute kidney injury)--Improved Impression: Likely from dehydration, failure to thrive with poor hydration as it pertains to his postacute COVID syndrome and was living in [place] for 3 months. BUN/creatinine are improving daily with IV fluids. He still is clinically dehydrated but has improved now. Patient IV hydration has now been saline locked as he appears to be slightly volume up on I's and O's. Promote p.o. fluid intake now that his oral mucosa is not cracked and painful. Avoid nephrotoxins. Follow BMP daily. Creatinine improved to 1.3. Correcting underlying electrolyte disturbances. (4) Electrolyte disturbance; resolving Impression: He had reported taking in nearly no oral intake for 2 weeks when his COVID started and he developed no appetite. Electrolyte repletion has slowly improved his deficits and resolved with improvement to his creatinine function. Was previously hyperkalemic (resolved) as he was receiving 10 mEq of KCl daily and on low-dose Lasix in the setting of his improved CATIA. He is also receiving lisinopril given his reduced EF HF. Patient's hypocalcemia and hypomagnesemia have improved. Uptitrating magnesium oxide to 800 mg p.o. 3 times daily. IV mag sulfate/calcium gluconate prn. (5) NSTEMI/rEF HF Impression: NSTEMI by criteria and clinically as evidence of hypokinesis and MWA seen w/ rEF HF on ECHO, as trops were peaked at 2784 although lacks CP or anginal eq., on ASA only and hep DVT ppx. HASBLED was high risk for bleed. His troponins are elevated and now downtrending. His BNPs are also elevated. IVF's on hold now as he has evidence of CM seen on ECHO. Dr. De Leon performed a bedside Echo, which showed normal left ventricular size and wall thickness. LV apex severe hypokinesis, other wall motion normal, LVEF 55 to 60%. Doppler shows mild LV diastolic dysfunction. However, His echocardiogram dated 04/02/2022 shows an EF of 25-40% with hypokinetic/akinetic to third apical portion with moderate global hypokinesis. Unions peaked at 2784.9 and with a last troponin at 123.5 on 04/08. He will likely require guideline directed medical therapy however will hold off on beta-blockade given his slow rate marya w/ improved BP's while on midodrine and may benefit from slow introduction of low dose DIAN inhibitor and lasix given his slow rise in his potassium although he continues on KCL at 10 meq daily which will be discontinued. Resolved/stable medical conditions. Acute Dehydration/Hypovolemia; resolved Impression: This patient described almost no p.o. intake for about 2 weeks and claims he had a 34 pound weight loss in 2 weeks. IVF's have been saline given his reduced EF HF and improvement to his blood pressures. Will encourage po intake as he has FTT/Anorexia related to his post acute covid syndrome and depression. Severe protein calorie malnutrition (Present on admission). Impression: The patient has severe muscle wasting and loss of fat, Has had nutritional intake of less than 50% of recommended for the last 2 weeks, has weight loss of greater than 2% in the last week, weight is down 16 kg which is 21% down in the past month, he is very weak with significantly reduced functional capacity and needs to be feed, needs pured food. Optimize nutritional and medical management with the correction of underlying electrolyte disturbances as per above. Nutrition consult regarding malnutrition screen and any recommendations appreciated. Iron/folic acid deficiency/Macrocytic anemia Impression: Found to be iron deficient with underlying folic acid deficiencies as it pertains to his severe protein and calorie deficiency with acute dehydration on presentation. His occult blood test is negative and he is only on aspirin at the present time. Would suspect hemodilution component with no bleeding events. H&H has down trended and continues to be monitored. Hx of coronary artery disease (stable) Impression: The patient's son from [place] was at bedside and provided details of the pt's Cad Hx.. The patient used to live with this son and haS all his Cardiology care in [place]. The patient reports that he had yearly stress tests to check his CABGs. The son was able to show Dr. Ruiz a report: The patient had a [employer] nuclear stress test in early 2020 and the nuclear scan s howed 1% to 3% ischemic burden, and overall normal EF it reported (no % was given). We will continue with the patient's daily aspirin and and will need GDMTx given his likely ischemic CM with rEF seen on ECHO. QT prolongation---Resolved Impression: Patient has been discontinued off of Remeron due to prolonged QT and placed on Zoloft to minimize QT prolongation given his SSS. Positive nasal culture for methicillin resistant Staphylococcus aureus Impression: Since he may also have systemic MRSA, remains on IV vancomycin given his RLL pneumonia with possible aspiration/bronchitis He was treated with ethanol nasal swabs as well. Sepsis (resolved) Impression: Resolved. His blood pressure is better. WBC down and lactic acid corrected. The etiology appears to be a lobar pneumonia. Continue with IV fluids. Treat the underlying problem with antibiotics Hypotension---improved Impression: Resolved. Off of midodrine. On low-dose Lasix/lisinopril given his reduced EF HF w/ holding parameters. Post-acute covid syndrome/Depression/Physical deconditioning Impression: PT/OT to make recommendations for SNF plcmt. Mobility, strength and gait deficits secondary to medical conditions per above and is on zoloft improve his postacute COVID syndrome/depression symptoms and to improve his appetite. In addition, he has significant physical deconditioning which PT/OT will assess for rehab/SNF potential. Bilateral lower extremity pain (left greater than right) History of gout. However his uric acid level was not elevated and therefore patient will be provided Celebrex 100 mg p.o. twice daily with underlying CATIA we will watch closely.
[2022-04-11] MEDS: SODIUM CHLORIDE FLUSH 0.9% 10 ML SYRINGE IVP PRN (09:58)
[2022-04-11] MEDS: SODIUM CHLORIDE INHALATION 3 ML NEB INH SCH ×3 (20:18→20:19)
[2022-04-11] MEDS: ATORVASTATIN 40 MG TABLET PO SCH (20:41)
[2022-04-12] MEDS: SODIUM CHLORIDE FLUSH 0.9% 10 ML SYRINGE IVP SCH ×3 (00:01→16:49)
[2022-04-12 05:46] LABS: CALCIUM 8.1 mg/dL (8.5-10.3); IONIZED CALCIUM IF INDICATED YES
[2022-04-12 05:54] LABS: ALBUMIN 2.2 g/dL (3.2-5.5); CALCIUM 8.2 mg/dL (8.5-10.3); CREATININE 1.3 mg/dL (0.6-1.2); MAGNESIUM 1.6 mg/dL (1.7-2.8); PHOSPHORUS 2.5 mg/dL (2.5-4.6); POTASSIUM 4.2 mmol/L (3.5-5.0)
[2022-04-12 06:04] LABS: CALCIUM, IONIZED 1.14 mmol/L (1.15-1.33); VBG PH 7.405 (7.31-7.41)
[2022-04-12] MEDS: MAGNESIUM OXIDE 400 MG TABLET PO SCH ×3 (06:26→20:53)
[2022-04-12] MEDS: MULTIVITAMIN W/MINERALS TABLET PO SCH (06:27)
[2022-04-12] MEDS: CALCIUM CARB (OYSTER SHELL) 500 MG TABLET PO SCH ×3 (06:27→20:52)
[2022-04-12] MEDS: PANTOPRAZOLE 40 MG TABLET PO SCH (06:27)
[2022-04-12] MEDS: BUDESONIDE 0.5 MG/2 ML NEB INH SCH ×2 (07:41→20:23)
[2022-04-12] MEDS: SODIUM CHLORIDE INHALATION 3 ML NEB INH SCH (07:42)
[2022-04-12] MEDS ORDERED: MAGNESIUM SULFATE 2 GRAM 2 GM/50 ML BAG IV ONE (08:00)
[2022-04-12] MEDS: FERRIC GLUCONATE 125 MG in SODIUM CHLORIDE 0.9% 100ML 100 ML IV SCH (09:18)
--- NOTE | 2022-04-12 09:21 | PROVIDER PROGRESS NOTE ---
Progress Note HPI: Patient seen at bedside with no hypoxemic or chest pain events and patient has improvement to his slow rate atrial fibrillation with bradycardia. Patient states that he is feeling weak although his appetite has improved and has been on Zoloft. He denies chest pain, headaches, visual disturbances, palpitations, jaw claudication, GI/ symptoms, MP rash or joint tenderness. Systolic blood pressures have improved in the 130s and heart rate ranging between 50s to 60s. She has been discontinued off of midodrine as well as aminophylline. Previously wanting a pacemaker but was now dissuaded by prior apiculture teacher and was evaluated previously at [facility] and also told that he would not be a good candidate for his pacemaker. He has elected on deferral of pacemaker for now and with limited intervention. Palliative care services were requested. Patient has a weak moist productive cough and is receiving RT therapies. Patient seen at bedside with improved overall clinical status, electrolyte deficiencies, macrocytic anemia, intermittent sinus bradycardia and is on his 10th day of total antibiotics for his MRSA pneumonia. Receiving treatment for hypomagnesemia and hypocalcemia with an ionized calcium today of 1.14 and low magnesium of 1.6 receiving repletion therapy. Creatinine improved to 1.3 and hemoglobin improved to 9.6. Overall improved eating while on Zoloft, denies fevers, nausea, emesis, chest pain, shortness of breath although has minimal productive cough and sputum production feels overall much improved. [facility]. On examination: Afebrile, intermittent bradycardia, NT. NH. General: Patient is pleasant, cooperative, cachectic and ill-appearing HEENT: NCAT, no buccal lesions, oropharynx clear Neck: No JVD, no bruits CV/lungs: Bradycardia, Irregular irregular, no murmurs, gallops, clicks. No rubs. Mild exp rhonchi, improved aeration to BL lung solares. Abdomen: Soft and benign Musculoskeletal: Sarcopenia noted Extremities/skin: Left lower extremity infrapatellar region painful without warmth with elbow ROM. No crepitus or fluctuance to patella. 2+ pulses dorsalis pedis, no edema, clubbing or cyanosis Neuro: Grossly intact. Labs: Reviewed Imaging studies: Reviewed Assessment/plan: (1) CAP (community acquired pneumonia)---MRSA, resolving. Impression: There is a right lower lobe pneumonia w/ possible mucus plugging related to aspiration/bronchitis on imaging. He has intermittent sputum production, weak cough, status post azithromycin course and previously on Rocephin plus vancomycin. Blood cultures were drawn, and are negative to date. Patient is growing MRSA in his sputum and yeast which will not be treated. He is on day #10/10 of total antibiotic treatment on Augmentin plus doxycycline. May consider extending if symptoms persist. Mucinex and probiotics. Non-Hypoxemic and not requiring oxygenation however will continue with RT, I-S, pulmonary toileting, nebs improved sputum production with supportive treatment. PCL has improved to 0.53 (1.51). (2) Sick sinus syndrome---Stable Impression: Patient had some type of ablation done 1 year ago in [facility] per information obtained from son from [place]. There is prior history of paroxysmal atrial fibrillation but does not have or has been on beta-blockade. Patient sees his primary apiculture teacher Dr Arben Spivey [facility] at [place]. Patient presented with previous V. tach monomorphic which stopped spontaneously and was asymptomatic however did develop junctional bradycardia and in light of his RVR A. fib for which patient does have a history of atrial fibrillation and not anticoagulated we will forego full anticoagulation in the setting of his comorbidities and age and elevated bleeding risk. He initially wanted a pacemaker and a call to [facility] had been made previously for transfer to higher level care however he has stated that his apiculture teacher previously had stated that he would not be a candidate for pacemaker placement and currently has decided on foregoing pacemaker placement at this time as he would need to complete antibiotic therapy and essentially would go against his goals of care as a DNR if pacemaker placement was pursued. Aminophylline d/c'ed on 04/06 as this may induce arrhythmias and currently holding beta-blockade due to his soft BPs. Defer off digoxin due to his poor creatinine clearance although improved renal function. Continue to correct underlying severe electrolyte disturbances. EKG reviewed and prior echo shows, LV apex severe hypokinesis, other wall motion normal, LVEF 55 to 60%. Doppler shows mild LV diastolic dysfunction (grade 1). He has a preserved LVEF, therefore defer off Amiodarone. Due to stability of patient's electrolytes and no use of external pacer patches patient will be transitioned to [facility] telemetry. [id number] Score is 3 pts. However, his HASBLED score is 3 pts which puts him at 5.8% or a high risk of bleeding events and will forego off of DOAC, Coumadin or full AC. TFTs essentially normal. Palliative care services have been requested to address goals of care and advance care planning. (3) CATIA (acute kidney injury)--Improved Impression: Likely from dehydration, failure to thrive with poor hydration as it pertains to his postacute COVID syndrome and was living in [place] for 3 months. BUN/creatinine are improving daily with IV fluids. He still is clinically dehydrated but has improved now. Patient IV hydration has now been saline locked as he appears to be slightly volume up on I's and O's. Promote p.o. fluid intake now that his oral mucosa is not cracked and painful. Avoid nephrotoxins. Follow BMP daily. Creatinine improved to 1.3. Correcting underlying electrolyte disturbances. (4) Electrolyte disturbance; resolving Impression: He had reported taking in nearly no oral intake for 2 weeks when his COVID started and he developed no appetite. Electrolyte repletion has slowly improved his deficits and resolved with improvement to his creatinine function. Was previously hyperkalemic (resolved) as he was receiving 10 mEq of KCl daily and on low-dose Lasix in the setting of his improved CATIA. He is also receiving lisinopril given his reduced EF HF. Patient's hypocalcemia and hypomagnesemia have improved. Uptitrating magnesium oxide to 800 mg p.o. 3 times daily. IV mag sulfate/calcium gluconate prn. (5) NSTEMI/rEF HF Impression: NSTEMI by criteria and clinically as evidence of hypokinesis and MWA seen w/ rEF HF on ECHO, as trops were peaked at 2784 although lacks CP or anginal eq., on ASA only and hep DVT ppx. HASBLED was high risk for bleed. His troponins are elevated and now downtrending. His BNPs are also elevated. IVF's on hold now as he has evidence of CM seen on ECHO. Dr. De Leon performed a bedside Echo, which showed normal left ventricular size and wall thickness. LV apex severe hypokinesis, other wall motion normal, LVEF 55 to 60%. Doppler shows mild LV diastolic dysfunction. However, His echocardiogram dated 04/02/2022 shows an EF of 25-40% with hypokinetic/akinetic to third apical portion with moderate global hypokinesis. Unions peaked at 2784.9 and with a last troponin at 123.5 on 04/08. He will likely require guideline directed medical therapy however will hold off on beta-blockade given his slow rate marya w/ improved BP's while on midodrine and may benefit from slow introduction of low dose DIAN inhibitor and lasix given his slow rise in his potassium although he continues on KCL at 10 meq daily which will be discontinued. Resolved/stable medical conditions. Acute Dehydration/Hypovolemia; resolved Impression: This patient described almost no p.o. intake for about 2 weeks and claims he had a 34 pound weight loss in 2 weeks. IVF's have been saline given his reduced EF HF and improvement to his blood pressures. Will encourage po intake as he has FTT/Anorexia related to his post acute covid syndrome and depression. Severe protein calorie malnutrition (Present on admission). Impression: The patient has severe muscle wasting and loss of fat, Has had nutritional intake of less than 50% of recommended for the last 2 weeks, has weight loss of greater than 2% in the last week, weight is down 16 kg which is 21% down in the past month, he is very weak with significantly reduced functional capacity and needs to be feed, needs pured food. Optimize nutritional and medical management with the correction of underlying electrolyte disturbances as per above. Nutrition consult regarding malnutrition screen and any recommendations appreciated. Iron/folic acid deficiency/Macrocytic anemia Impression: Found to be iron deficient with underlying folic acid deficiencies as it pertains to his severe protein and calorie deficiency with acute dehydration on presentation. His occult blood test is negative and he is only on aspirin at the present time. Would suspect hemodilution component with no bleeding events. H&H has down trended and continues to be monitored. Hx of coronary artery disease (stable) Impression: The patient's son from [place] was at bedside and provided details of the pt's Cad Hx.. The patient used to live with this son and haS all his Cardiology care in [place]. The patient reports that he had yearly stress tests to check his CABGs. The son was able to show Dr. Ruiz a report: The patient had a [employer] nuclear stress test in early 2020 and the nuclear scan showed 1% to 3% ischemic burden, and overall normal EF it reported (no % was given). We will continue with the patient's daily aspirin and and will need GDMTx given his likely ischemic CM with rEF seen on ECHO. QT prolongation---Resolved Impression: Patient has been discontinued off of Remeron due to prolonged QT and placed on Zoloft to minimize QT prolongation given his SSS. Positive nasal culture for methicillin resistant Staphylococcus aureus Impression: Since he may also have systemic MRSA, remains on IV vancomycin given his RLL pneumonia with possible aspiration/bronchitis He was treated with ethanol nasal swabs as well. Sepsis (resolved) Impression: Resolved. His blood pressure is better. WBC down and lactic acid corrected. The etiology appears to be a lobar pneumonia. Continue with IV fluids. Treat the underlying problem with antibiotics Hypotension---improved Impression: Resolved. Off of midodrine. On low-dose Lasix/lisinopril given his reduced EF HF w/ holding parameters. Post-acute covid syndrome/Depression/Physical deconditioning Impression: PT/OT to make recommendations for SNF [facility]. Mobility, strength and gait deficits secondary to medical conditions per above and is on zoloft improve his postacute COVID syndrome/depression symptoms and to improve his appetite. In addition, he has significant physical deconditioning which PT/OT will assess for rehab/SNF potential. Bilateral lower extremity pain (left greater than right) History of gout. However his uric acid level was not elevated and therefore patient will be provided Celebrex 100 mg p.o. twice daily with underlying CATIA we will watch closely.
[2022-04-12] MEDS: AMOX/CLAV 875 MG/125 MG TABLET PO SCH ×2 (09:26→20:51)
[2022-04-12] MEDS: ASPIRIN CHEW 81 MG TABLET PO SCH (09:26)
[2022-04-12] MEDS: HEPARIN 5,000 UNIT/ML VIAL SUBQ SCH ×2 (09:27→20:52)
[2022-04-12] MEDS: LACTOBACILLUS RHAMNOSUS GG CAPSULE PO SCH (09:27)
[2022-04-12] MEDS: ethyl alcohoL 62% SWAB AMPULE NAS SCH ×2 (09:27→20:51)
[2022-04-12] MEDS: guaiFENesin 600 MG TABLET PO SCH ×2 (09:27→16:49)
[2022-04-12] MEDS: CELECOXIB 100 MG CAPSULE PO SCH ×2 (09:27→20:51)
[2022-04-12] MEDS: FERROUS SULFATE 325 MG TABLET PO SCH ×2 (09:27→16:49)
[2022-04-12] MEDS: SERTRALINE 25 MG TABLET PO SCH (09:27)
[2022-04-12] MEDS: MULTIVITAMIN TABLET PO SCH (09:27)
[2022-04-12] MEDS: DOXYCYCLINE 100 MG TABLET PO SCH ×2 (09:27→20:52)
[2022-04-12] MEDS: CHOLECALCIFEROL 25 MCG TABLET PO SCH (09:27)
[2022-04-12] MEDS: FOLIC ACID 1 MG TABLET PO SCH (09:27)
[2022-04-12] MEDS: POTASSIUM CHLORIDE 10 MEQ CAPSULE PO SCH (09:27)
[2022-04-12] MEDS: FUROSEMIDE 20 MG TABLET PO SCH (10:42)
[2022-04-12] MEDS: lisinopriL 5 MG TABLET PO SCH (10:42)
[2022-04-12] MEDS: ATORVASTATIN 40 MG TABLET PO SCH (20:51)
[2022-04-13] MEDS: SODIUM CHLORIDE FLUSH 0.9% 10 ML SYRINGE IVP SCH ×3 (00:53→17:03)
[2022-04-13 06:18] LABS: CALCIUM 8.2 mg/dL (8.5-10.3); IONIZED CALCIUM IF INDICATED YES
[2022-04-13] MEDS: CALCIUM CARB (OYSTER SHELL) 500 MG TABLET PO SCH ×3 (06:25→21:29)
[2022-04-13] MEDS: MULTIVITAMIN W/MINERALS TABLET PO SCH (06:25)
[2022-04-13] MEDS: MAGNESIUM OXIDE 400 MG TABLET PO SCH ×3 (06:25→21:29)
[2022-04-13] MEDS: PANTOPRAZOLE 40 MG TABLET PO SCH (06:25)
[2022-04-13 06:32] LABS: CALCIUM, IONIZED 1.13 mmol/L (1.15-1.33); VBG PH 7.387 (7.31-7.41)
[2022-04-13 06:42] LABS: ALBUMIN 2.2 g/dL (3.2-5.5); CALCIUM 8.1 mg/dL (8.5-10.3); CREATININE 1.2 mg/dL (0.6-1.2); MAGNESIUM 2.1 mg/dL (1.7-2.8); PHOSPHORUS 2.3 mg/dL (2.5-4.6); POTASSIUM 4.3 mmol/L (3.5-5.0)
--- NOTE | 2022-04-13 08:44 | PROVIDER PROGRESS NOTE ---
Assessment/Plan - Problem List (1) Sick sinus syndrome Assessment/Plan: Patient had some type of ablation done 1 year ago in [facility] per information obtained from son from [place]. There is prior history of paroxysmal atrial fibrillation but does not have or has been on beta-blockade. Patient sees his primary medical research assistant Dr Arben Spivey [facility] at [place]. Patient presented with previous V. tach monomorphic which stopped spontaneously and was asymptomatic however did develop junctional bradycardia and in light of his RVR A. fib for which patient does have a history of atrial fibrillation and not anticoagulated we will forego full anticoagulation in the setting of his comorbidities and age and elevated bleeding risk. He initially wanted a pacemaker and a call to [facility] had been made previously for transfer to higher level care however he has stated that his medical research assistant previously had stated that he would not be a candidate for pacemaker placement and currently has decided on foregoing pacemaker placement at this time as he would need to complete antibiotic therapy and essentially would go against his goals of care as a DNR if pacemaker placement was pursued. Aminophylline d/c'ed on 04/06 as this may induce arrhythmias and currently holding beta-blockade due to his soft BPs. Defer off digoxin due to his poor creatinine clearance although improved renal function. Continue to correct underlying severe electrolyte disturbances. EKG reviewed and prior echo shows, LV apex severe hypokinesis, other wall motion normal, LVEF 55 to 60%. Doppler shows mild LV diastolic dysfunction (grade 1). He has a preserved LVEF, therefore defer off Amiodarone. Due to stability of patient's electrolytes and no use of external pacer patches patient will be transitioned to [facility] telemetry. [id number] Score is 3 pts. However, his HASBLED score is 3 pts which puts him at 5.8% or a high risk of bleeding events and will forego off of DOAC, Coumadin or full AC. TFTs essentially normal. Patient is awaiting placement. (2) NSTEMI (non-ST elevated myocardial infarction) Assessment/Plan: Medical management only. Patient declined any kind of intervention. 2D echocardiogram showed evidence of hypokinesis and motion wall abnormality. Echo, which showed normal left ventricular size and wall thickness. LV apex s evere hypokinesis, other wall motion normal, LVEF 55 to 60%. Doppler shows mild LV diastolic dysfunction. However, His echocardiogram dated 04/02/2022 shows an EF of 25-40% with hypokinetic/akinetic to third apical portion with moderate global hypokinesis. Troponin peaked at 2784. Patient did not have any chest pain or anginal equivalents. On aspirin 81mg po daily. Atorvastatin 40 mg every afternoon. Lisinopril 2.5 mg p.o. daily. (3) CAP (community acquired pneumonia) Assessment/Plan: Resolved. Right lower lobe pneumonia with possible mucous plugging related to aspiration/bronchitis on imaging. He was treated with Rocephin, azithromycin and vancomycin. Blood cultures negative to date. Patient was growing MRSA in sputum and yeast. He was treated with antibiotics for 10 days. He was on doxycycline and Augmentin for 6 days. This was discontinued on 04/13/2022. White blood cell count normal at 7.0. Breathing comfortably on room air with oxygen saturation around 99%. Respiratory rate 16-19. He is afebrile. (4) Electrolyte disturbance Assessment/Plan: Improving. Sodium 135, potassium 4.3, calcium 8.2, magnesium 2.1, phosphorus 2.3. (5) CATIA (acute kidney injury) Assessment/Plan: Improving Creatinine is 1.2, BUN 17, estimated GFR 58 - Current Meds Current Meds: Current Medications Generic Name Dose Route Start Last Admin Trade Name Freq PRN Reason Stop Dose Admin Acetaminophen 650 mg 04/02/22 14:00 04/10/22 16:31 Acetaminophen 325 Mg Tablet PO 650 mg Q4HR PRN Administration Pain 1 to 4, or Fever Albuterol/Ipratropium 3 ml 04/07/22 07:32 04/11/22 07:29 Ipratropium/Albuterol 3 Ml Neb INH 3 ml Q4HR PRN Administration Wheezing Alcohol 1 amp 04/03/22 09:00 04/12/22 20:51 Ethyl Alcohol 62% Swab Ampule KIRIT 1 amp BID OSKAR Administration Amoxicillin/Clavulanate Potassium 1 tab 04/07/22 21:00 04/12/22 20:51 Amox/Clav 875 Mg/125 Mg Tablet PO 1 tab BID OSKAR Administration Aspirin 81 mg 04/03/22 09:00 04/12/22 09:26 Aspirin Chew 81 Mg Tablet PO 81 mg DAILY OSKAR Administration Atorvastatin Calcium 40 mg 04/02/22 21:00 04/12/22 20:51 Atorvastatin 40 Mg Tablet PO 40 mg QPM OSKAR Administration Budesonide 0.5 mg 04/07/22 08:00 04/12/22 20:23 Budesonide 0.5 Mg/2 Ml Neb INH 0.5 mg RTBID OSKAR Administration Calcium Carbonate/Glycine 500 mg 04/08/22 12:00 04/13/22 06:25 Calcium Carb (Oyster Shell) 500 Mg Tablet PO 500 mg TID [facility] Administration Celecoxib 100 mg 04/09/22 21:00 04/12/22 20:51 Celecoxib 100 Mg Capsule PO 100 mg BID OSKAR Administration Cholecalciferol 50 mcg 04/06/22 09:00 04/12/22 09:27 Cholecalciferol 25 Mcg Tablet PO 50 mcg DAILY [facility] Administration Doxycycline Hyclate 100 mg 04/07/22 21:00 04/12/22 20:52 Doxycycline 100 Mg Tablet PO 100 mg BID [facility] Administration Ferrous Sulfate 325 mg 04/11/22 08:00 04/12/22 16:49 Ferrous Sulfate 325 Mg Tablet PO 325 mg BIDWM OSKAR Administration Folic Acid 1 mg 04/11/22 09:00 04/12/22 09:27 Folic Acid 1 Mg Tablet PO 1 mg DAILY [facility] Administration Furosemide 20 mg 04/11/22 09:00 04/12/22 10:42 Furosemide 20 Mg Tablet PO Not Given DAILY [facility] Guaifenesin 600 mg 04/02/22 17:00 04/12/22 16:49 Guaifenesin 600 Mg Tablet PO 600 mg BIDWM [facility] Administration Heparin Sodium (Porcine) 5,000 unit 04/02/22 21:00 04/12/22 20:52 Heparin 5,000 Unit/Ml Vial SUBQ 5,000 unit BID [facility] Administration Ferric Sodium Gluconate 110 mls @ 100 mls/hr 04/11/22 09:00 04/12/22 10:40 Complex 125 mg/ Sodium IV 04/13/22 10:05 Infused Chloride DAILY [facility] Infusion Lactobacillus Rhamnosus 1 cap 04/07/22 13:00 04/12/22 09:27 Lactobacillus Rhamnosus Gg Capsule PO 1 cap DAILY [facility] Administration Lisinopril 2.5 mg 04/08/22 09:00 04/12/22 10:42 Lisinopril 5 Mg Tablet PO Not Given DAILY [facility] Magnesium Oxide 800 mg 04/09/22 14:00 04/13/22 06:25 Magnesium Oxide 400 Mg Tablet PO 800 mg TID OSK[facility] Administration Multivitamins/Minerals 1 tab 04/07/22 12:56 04/13/22 06:25 Multivitamin W/Minerals Tablet PO 1 tab 0700 OS[facility] Administration Pantoprazole Sodium 40 mg 04/03/22 07:00 04/13/22 06:25 Pantoprazole 40 Mg Tablet PO 40 mg QDAC OSKAR Administration Potassium Chloride 10 meq 04/04/22 15:00 04/12/22 09:27 Potassium Chloride 10 Meq Capsule PO 10 meq DAILYWM OSKAR Administration Sertraline HCl 25 mg 04/07/22 09:00 04/12/22 09:27 Sertraline 25 Mg Tablet PO 25 mg DAILY [facility] Administration Sodium Chloride 10 ml 04/02/22 14:00 04/11/22 09:58 Sodium Chloride Flush 0.9% 10 Ml Syringe IVP 10 ml PRN PRN Administration NEEDED PER PROVIDER ORDERS Sodium Chloride 10 ml 04/02/22 17:00 04/13/22 00:53 Sodium Chloride Flush 0.9% 10 Ml Syringe IVP 10 ml 0100,0900,1700 OSKAR Administration - Lab Result Fish Bone Diagrams: 04/11/22 07:09 04/13/22 05:00 Subjective - Subjective Patient Reports: Other (He was resting comfortably in bed at time of exam. Chest pain, dyspnea, abdominal pain. Reported some pain in the sacral area.) Objective Vital Signs: Vital Signs - 24 hr 04/12/22 04/12/22 04/12/22 13:58 15:59 20:21 Temperature 37.1 C 36.9 C Heart Rate 52 L Heart Rate [ 51 L 52 L Brachial] Respiratory 16 16 16 Rate Blood Pressure 100/46 L 116/53 L [Right Brachial artery] O2 Saturation 96 95 04/13/22 06:27 Temperature 36.7 C Heart Rate Heart Rate [ 50 L Brachial] Respiratory 16 Rate Blood Pressure 116/63 [Right Brachial artery] O2 Saturation 99 Oxygen O2 Source Room air I&O (Last 24 Hrs): Intake and Output Totals x24h 04/11/22 04/12/22 04/13/22 23:59 23:59 23:59 Intake Total 1030 748.333 Output Total 750 151 500 Balance 280 597.333 -500 General: Alert, Oriented x3, Mild distress HEENT: PERRLA, EOMI Neck: Supple, No JVD Neuro: Alert, Non Focal, Oriented Times 3 Cardiovascular: Regular rate, Normal S1, Normal S2 Respiratory: Chest non-tender, No respiratory distress, Breath sounds nml Abdomen: Normal bowel sounds, Soft Extremities: No clubbing, No cyanosis, No edema Skin: No rashes - Results Results: Laboratory Results WBC 7.0 x10^3/uL (4.8-10.8) 04/11/22 07:09 RBC 3.28 10^6/uL (4.70-6.10) L 04/11/22 07:09 Hgb 9.6 g/dL (14.0-18.0) L 04/11/22 07:09 Hct 30.8 % (42.0-52.0) L 04/11/22 07:09 MCV 93.9 fL (80.0-94.0) 04/11/22 07:09 MCH 29.3 pg (27.0-31.0) 04/11/22 07:09 MCHC 31.2 g/dL (32.0-36.0) L 04/11/22 07:09 RDW 14.6 % (12.0-15.0) 04/11/22 07:09 Plt Count 284 10^3/uL (130-450) 04/11/22 07:09 MPV 9.5 fL (7.4-11.4) 04/11/22 07:09 Neut # (Auto) 5.7 10^3/uL (1.5-6.6) 04/11/22 07:09 Lymph # (Auto) 0.7 10^3/uL (1.5-3.5) L 04/11/22 07:09 Steele # (Auto) 0.2 10^3/uL (0.0-1.0) 04/11/22 07:09 Eos # (Auto) 0.2 10^3/uL (0.0-0.7) 04/11/22 07:09 Baso # (Auto) 0.0 10^3/uL (0.0-0.1) 04/11/22 07:09 Absolute Nucleated RBC 0.00 x10^3/uL 04/11/22 07:09 Total Counted 100 04/04/22 04:10 Band Neuts % (Manual) 15 % (0-10) H 04/04/22 04:10 Abnorm Lymph % (Manual) 0 % 04/04/22 04:10 Metamyelocytes % 5 % (-0) H 04/02/22 11:52 Nucleated RBC % 0.0 /100WBC 04/11/22 07:09 Neutrophils # (Manual) 8.0 10^3/uL (1.5-6.6) H 04/04/22 04:10 Lymphocytes # (Manual) 0.5 10^3/uL (1.5-3.5) L 04/04/22 04:10 Monocytes # (Manual) 0.3 10^3/uL (0.0-1.0) 04/04/22 04:10 Eosinophils # (Manual) 0.0 10^3/uL (0-0.7) 04/04/22 04:10 Basophils # (Manual) 0.0 10^3/uL (0-0.1) 04/04/22 04:10 Differential Comment MANUAL DIFFERENTIAL 04/04/22 04:10 Manual Slide Review Indicated 04/02/22 11:52 WBC Morphology NORMAL APPEARANCE (NORMAL) 04/02/22 11:52 Platelet Estimate NORMAL (130-450,000) (NORMAL) 04/04/22 04:10 Platelet Morphology NORMAL APPEARANCE (NORMAL) 04/02/22 11:52 RBC Morph Micro Appear NORMAL APPEARANCE (NORMAL) 04/04/22 04:10 VBG pH 7.387 (7.31-7.41) 04/13/22 05:01 Ionized Calcium 1.13 mmol/L (1.15-1.33) L 04/13/22 05:01 Sodium 135 mmol/L (135-145) 04/13/22 05:00 Potassium 4.3 mmol/L (3.5-5.0) 04/13/22 05:00 Chloride 101 mmol/L (101-111) 04/13/22 05:00 Carbon Dioxide 30 mmol/L (21-32) 04/13/22 05:00 Anion Gap 4.0 (6-13) L 04/13/22 05:00 BUN 17 mg/dL (6-20) 04/13/22 05:00 Creatinine 1.2 mg/dL (0.6-1.2) 04/13/22 05:00 Estimated GFR (MDRD) 58 (>89) L 04/13/22 05:00 Glucose 87 mg/dL (70-100) 04/13/22 05:00 Lactic Acid 2.1 mmol/L (0.5-2.2) 04/03/22 18:35 Uric Acid 5.5 mg/dL (2.6-7.2) 04/09/22 04:47 Calcium 8.2 mg/dL (8.5-10.3) L 04/13/22 05:01 Ionized Calcium YES 04/13/22 05:01 Phosphorus 2.3 mg/dL (2.5-4.6) L 04/13/22 05:00 Magnesium 2.1 mg/dL (1.7-2.8) 04/13/22 05:00 Iron 21 ug/dL (45-182) L 04/10/22 04:55 TIBC 109 ug/dL (250-450) L 04/10/22 04:55 % Saturation 19 % (20-50) L 04/10/22 04:55 Transferrin 78 mg/dL (180-329) L 04/10/22 04:55 Total Bilirubin 0.9 mg/dL (0.2-1.0) 04/02/22 11:52 AST 24 IU/L (10-42) 04/02/22 11:52 ALT 17 IU/L (10-60) 04/02/22 11:52 Alkaline Phosphatase 58 IU/L (42-121) 04/02/22 11:52 Troponin I High Sens 123.5 ng/L (2.3-19.7) H* 04/08/22 04:46 Total Protein 7.0 g/dL (6.7-8.2) 04/02/22 11:52 Albumin 2.2 g/dL (3.2-5.5) L 04/13/22 05:00 Globulin 3.5 g/dL (2.1-4.2) 04/02/22 11:52 Albumin/Globulin Ratio 1.0 (1.0-2.2) 04/02/22 11:52 Vitamin B12 542 pg/mL (180-914) 04/05/22 04:28 Folate 4.46 ng/mL (5.90 - >24.8) L 04/10/22 04:55 Procalcitonin 0.53 ng/mL (<0.5) 04/08/22 04:46 TSH 1.30 uIU/mL (0.34-5.60) 04/06/22 07:13 Free T4 0.95 ng/dL (0.58-1.64) 04/06/22 07:13 Urine Color YELLOW 04/03/22 06:00 Urine Clarity SL. CLOUDY (CLEAR) 04/03/22 06:00 Urine pH 5.0 PH (5.0-7.5) 04/03/22 06:00 Ur Specific [place] 1.020 (1.002-1.030) 04/03/22 06:00 Urine Protein NEGATIVE mg/dL (NEGATIVE) 04/03/22 06:00 Urine Glucose (UA) 100 mg/dL (NEGATIVE) H 04/03/22 06:00 Urine Ketones NEGATIVE mg/dL (NEGATIVE) 04/03/22 06:00 Urine Occult Blood TRACE-INTA (NEGATIVE) 04/03/22 06:00 Urine Nitrite NEGATIVE (NEGATIVE) 04/03/22 06:00 Urine Bilirubin NEGATIVE (NEGATIVE) 04/03/22 06:00 Urine Urobilinogen 0.2 (NORMAL) E.U./dL (NORMAL) 04/03/22 06:00 Ur Leukocyte Esterase NEGATIVE (NEGATIVE) 04/03/22 06:00 Urine RBC 0-5 /HPF (0-5) 04/03/22 06:00 Urine WBC 6-10 /HPF (0-3) H 04/03/22 06:00 Ur Squamous Epith Cells RARE Squamous (<= Few) 04/03/22 06:00 Amorphous Sediment Rare /LPF 04/03/22 06:00 Urine Bacteria None Seen /HPF (None Seen) 04/03/22 06:00 Urine Casts 3-5 Granular Casts /LPF 04/03/22 06:00 Urine Culture Comments NOT INDICATED 04/03/22 06:00 Nasal Screen MRSA (PCR) POSITIVE (NEGATIVE) A* 04/02/22 19:58 Stl Occult Blood (IFOB) NEGATIVE (NEGATIVE) 04/10/22 09:58 Last Dose Date 04/05/22 04/07/22 07:51 Last Dose Time 1330 04/07/22 07:51 Random Vancomycin 10.4 ug/mL 04/07/22 07:51 SARS-CoV-2 (PCR) NOT DETECTED 04/11/22 11:15 - Procedures Procedures: Procedures RELEASE SMALL INTESTINE, OPEN APPROACH (08/20/21) ABX Reporting Has patient been on IV antibiotics over the past 48 hours?: No
[2022-04-13] MEDS: BUDESONIDE 0.5 MG/2 ML NEB INH SCH (08:49)
[2022-04-13] MEDS: CHOLECALCIFEROL 25 MCG TABLET PO SCH (09:01)
[2022-04-13] MEDS: guaiFENesin 600 MG TABLET PO SCH ×2 (09:01→17:03)
[2022-04-13] MEDS: FERROUS SULFATE 325 MG TABLET PO SCH ×2 (09:01→17:03)
[2022-04-13] MEDS: AMOX/CLAV 875 MG/125 MG TABLET PO SCH (09:01)
[2022-04-13] MEDS: FOLIC ACID 1 MG TABLET PO SCH (09:01)
[2022-04-13] MEDS: POTASSIUM CHLORIDE 10 MEQ CAPSULE PO SCH (09:01)
[2022-04-13] MEDS: ethyl alcohoL 62% SWAB AMPULE NAS SCH ×2 (09:01→21:29)
[2022-04-13] MEDS: DOXYCYCLINE 100 MG TABLET PO SCH (09:01)
[2022-04-13] MEDS: ASPIRIN CHEW 81 MG TABLET PO SCH (09:02)
[2022-04-13] MEDS: CELECOXIB 100 MG CAPSULE PO SCH ×2 (09:03→21:29)
[2022-04-13] MEDS: LACTOBACILLUS RHAMNOSUS GG CAPSULE PO SCH (09:03)
[2022-04-13] MEDS: SERTRALINE 25 MG TABLET PO SCH (09:03)
[2022-04-13] MEDS: lisinopriL 5 MG TABLET PO SCH (09:03)
[2022-04-13] MEDS: FUROSEMIDE 20 MG TABLET PO SCH (09:03)
[2022-04-13] MEDS: FERRIC GLUCONATE 125 MG in SODIUM CHLORIDE 0.9% 100ML 100 ML IV SCH (09:04)
[2022-04-13] MEDS: HEPARIN 5,000 UNIT/ML VIAL SUBQ SCH ×2 (09:04→21:32)
[2022-04-13] MEDS: ATORVASTATIN 40 MG TABLET PO SCH (21:29)
[2022-04-14] MEDS: SODIUM CHLORIDE FLUSH 0.9% 10 ML SYRINGE IVP SCH ×2 (04:46→09:35)
[2022-04-14] MEDS: PANTOPRAZOLE 40 MG TABLET PO SCH (06:29)
[2022-04-14] MEDS: MAGNESIUM OXIDE 400 MG TABLET PO SCH (06:29)
[2022-04-14] MEDS: MULTIVITAMIN W/MINERALS TABLET PO SCH (06:29)
[2022-04-14] MEDS: CALCIUM CARB (OYSTER SHELL) 500 MG TABLET PO SCH (06:29)
[2022-04-14] MEDS: BUDESONIDE 0.5 MG/2 ML NEB INH SCH (07:23)
[2022-04-14] MEDS: lisinopriL 5 MG TABLET PO SCH (09:34)
[2022-04-14] MEDS: FOLIC ACID 1 MG TABLET PO SCH (09:34)
[2022-04-14] MEDS: FERROUS SULFATE 325 MG TABLET PO SCH (09:34)
[2022-04-14] MEDS: ethyl alcohoL 62% SWAB AMPULE NAS SCH (09:34)
[2022-04-14] MEDS: LACTOBACILLUS RHAMNOSUS GG CAPSULE PO SCH (09:34)
[2022-04-14] MEDS: HEPARIN 5,000 UNIT/ML VIAL SUBQ SCH (09:35)
[2022-04-14] MEDS: FUROSEMIDE 20 MG TABLET PO SCH (09:35)
[2022-04-14] MEDS: CHOLECALCIFEROL 25 MCG TABLET PO SCH (09:35)
[2022-04-14] MEDS: guaiFENesin 600 MG TABLET PO SCH (09:35)
[2022-04-14] MEDS: ASPIRIN CHEW 81 MG TABLET PO SCH (09:35)
[2022-04-14] MEDS: SERTRALINE 25 MG TABLET PO SCH (09:35)
[2022-04-14] MEDS: POTASSIUM CHLORIDE 10 MEQ CAPSULE PO SCH (09:35)
[2022-04-14] MEDS: CELECOXIB 100 MG CAPSULE PO SCH (09:35)
--- NOTE | 2022-04-14 11:54 | DISCHARGE SUMMARY ---
Discharge Summary Admit Date: 04/02/22 Discharge Date: 04/14/22 Discharging Provider: Reid Alston Primary Care Provider: Kristin Antony Code Status: Do Not Attempt Resuscitation Condition at Discharge: Fair Discharge Disposition: 03 SNF DC/Xfer Discharge Facility Name: [facility] - DIAGNOSES Admission Diagnoses: Sepsis Community-acquired pneumonia Hypotension Junctional bradycardia Acute kidney injury Dehydration Elevated troponin Atrial fibrillation Discharge Diagnoses with Status of Each Condition: Sick sinus syndrome: Resolved: Patient was normal sinus rhythm by time of disch arge. Declined pacemaker placement NSTEMI: Medical Management only Sepsis: Acute. 2/2 Pneumonia. Resolved Community-acquired pneumonia: Resolved Hypotension: Resolved Junctional bradycardia: Patient was back to sinus rhythm by discharge Acute kidney injury: Rsolved Dehydration: Resolved Atrial fibrillation: Paroxysmal - HPI History of Present Illness: This is an 81 y/o WM with Hx of CAD, Afib on aspirin, HTN, prior SBO and had lysis of adhesions in the 08/2021 admission. He lives at [facility] for about 2-3 mos, before that lived with son and grand-daughter in [place]. Two weeks ago, he caught COVID. In those 2 weeks he has developed poor appetite, a 34 pound weight loss, and progressively worsening weakness. He only drank 1/3 container of Ensure. It was painful to talk or swallow due to dry cracked oral mucosa, he said. and the grand-daughter at bedside confirms this. However, he was still taking his usual prescribed meds. Because of low blood pressures, EMS was called by the [facility] staff today. At the scene his systolic blood pressure was 60. No other details at the scene are known, as there is no ambulance run sheet available. He started to get IV crystalloids and blood pressure improved to 80 in the ambulance and by the time he was in the ED, his systolic blood pressure was 100. The work-up in the ED shows he has an elevated lactic acid of 2.8, elevated white blood count of 14.2, CATIA with BUN/creatinine of 90/3.8. CT imaging of abdomen and pelvis did not show any acute problems, but CT of chest showed a right lower lobe pneumonia and possible plugging. His troponin is 2400. His EKG shows junctional rhythm, with a ventricular escape rate in the 40s. His potassium was 3.8. He is testing COVID-negative today. The ED provider discussed management options with the patient. Patient wishes to be a DNR/DNI and requested to have last rights administered by a cardiothoracic icu rn. A cardiothoracic icu rn was called. The patient does want IV fluids and IV antibiotics. He does not want transfer, does not want a pacemaker, does not want pressor support. The ED provider then reached out to the hospitalist team for admission. - HOSPITAL COURSE Hospital Course: 81-year-old male who was admitted on 04/02/2022 with weakness. Work-up showed he had sepsis secondary to pneumonia. He was started on antibiotics and admitted to the ICU. At the time his heart rate was also in the 40s and he was also noted to be in a junctional rhythm. Subsequent work-up also included troponin levels which were very high. Troponin level was as high as 2784. Patient opted for no intervention and as a result was medically managed. He was treated with aminophylline drip for the junctional rhythm and over the course of his hospital stay he went back into sinus rhythm. He also subsequently decided against having a pacemaker placed. 2D echocardiogram showed evidence of hypokinesis and motion wall abnormality. Echo, which showed normal left ventricular size and wall thickness. LV apex severe hypokinesis, other wall motion normal, LVEF 55 to 60%. Doppler shows mild LV diastolic dysfunction. However, His echocardiogram dated 04/02/2022 shows an EF of 35-40% with hypokinetic/akinetic to third apical portion with moderate global hypokinesis. Troponin peaked at 2784. Patient did not have any chest pain or anginal equivalents. He had some electrolyte imbalances and acute kidney injury which were treated and resolved by the time of discharge. He was transferred out of the ICU on 04/07/22 and has continued to recover well on the [facility] floor. On the day of discharge he was doing well and discharged in stable condition. He is being discharged to [facility] for rehab. - ALLERGIES Allergies/Adverse Reactions: Allergies Allergy/AdvReac Type Severity Reaction Status Date / Time No Known Drug Allergies Allergy Verified 04/02/22 12:03 - MEDICATIONS Home Medications: Ambulatory Orders Medication Instructions Recorded Confirmed Aspirin Chewable [[facility] [place] 81 mg PO DAILY 08/20/21 04/02/22 Aspirin] Atorvastatin [Lipitor] 40 mg PO DAILY 08/20/21 04/02/22 Lisinopril [Zestril] 10 mg PO DAILY 08/20/21 04/02/22 Pantoprazole Sodium 40 mg PO DAILY 08/20/21 04/02/22 Citalopram Hydrobromide 10 mg PO DAILY 04/02/22 04/02/22 [Citalopram HBr] Mirtazapine 15 mg PO HS 04/02/22 04/02/22 - PHYSICAL EXAM AT DISCHARGE General Appearance: positive: No acute distress, Alert Eyes Bilateral: positive: PERRL, EOMI ENT: positive: No signs of dehydration Neck: positive: No JVD, Trachea midline Respiratory: positive: Chest non-tender, No respiratory distress, Breath sounds nml. negative: Wheezes, Rales, Rhonchi Cardiovascular: positive: Regular rate & rhythm Abdomen: positive: Non-tender, Nml bowel sounds. negative: Guarding, Rebound Back: positive: Nml inspection Skin: positive: Color nml, No rash, Warm, Dry Extremities: positive: Non-tender, Full ROM, Nml appearance, No pedal edema Neurologic/Psychiatric: positive: Oriented x3, Mood/affect nml - LABS Result Diagrams: 04/11/22 07:09 04/13/22 05:00 - TIME SPENT Time Spent in Discharge (Minutes): 20
--- NOTE | 2022-04-14 12:06 | Discharge Plan ---
"Discharge Plan for SNF / [facility] - Discharge Plan And Transition Orders Problem Reviewed?: Yes Disposition: 03 SNF DC/Xfer Allergies and Adverse Reactions: Allergies Allergy/AdvReac Type Severity Reaction Status Date / Time No Known Drug Allergies Allergy Verified 04/02/22 12:03 Health Concerns: 81-year-old male who was admitted on 04/02/2022 with weakness. Work-up showed he had sepsis secondary to pneumonia. He was started on antibiotics and admitted to the ICU. At the time his heart rate was also in the 40s and he was also noted to be in a junctional rhythm. Subsequent work-up also included troponin levels which were very high. Troponin level was as high as 2784. Patient opted for no intervention and as a result was medically managed. He was treated with aminophylline drip for the junctional rhythm and over the course of his hospital stay he went back into sinus rhythm. He also subsequently decided against having a pacemaker placed. 2D echocardiogram showed evidence of hypokinesis and motion wall abnormality. Echo, which showed normal left ventricular size and wall thickness. LV apex severe hypokinesis, other wall motion normal, LVEF 55 to 60%. Doppler shows mild LV diastolic dysfunction. However, His echocardiogram dated 04/02/2022 shows an EF of 35-40% with hypokinetic/akinetic to third apical portion with moderate global hypokinesis. Troponin peaked at 2784. Patient did not have any chest pain or anginal equivalents. He had some electrolyte imbalances and acute kidney injury which were treated and resolved by the time of discharge. He was transferred out of the ICU on 04/07/22 and has continued to recover well on the [facility] floor. On the day of discharge he was doing well and discharged in stable condition. He is being discharged to [facility] for rehab. 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 He may follow-up with his primary care physician as needed. - SNF / [facility] Transition Orders Admit to (Facility): [facility] Discharge Diagnosis: Sick sinus syndrome: Stable. NSTEMI: Medical management only. Community-acquired pneumonia: Resolved. Electrolyte imbalances: Resolved. Acute kidney injury: Resolved History of Coronary Artery disease: Stable Severe protein calorie malnutrition. Post acute COVID syndrome/depression/physical deconditioning: Patient going to [facility] for rehab. Medicare Certification Statement: I certify that [facility] is medically necessary on a continuing basis for any of the conditions for which she/he is receiving care during hospitalization. Notify PCP of admission and forward orders to primary provider for signature. Weight on admission and: Daily Other Notification Orders: Call PCP immediately if patient develops dyspnea, chest pain/tightness or edema. House Bowel Program: Yes Additional Bowel Program Orders: If no BM after 2 days, nurse may give M.O.M. 30ml PO PRN and/or ducolax Supp 1 MS and/or JOSE DAVID 250mg P.O., and/or senna 1-2 tabs PO. On day 3 nurse may give repeat above order until residents constipation is resolved. Medication Orders: PLEASE REFER TO THE DISCHARGE MEDICATION LIST. - Diet Type: Geriatric Texture: Regular - Therapies | Activity Therapy: Evaluation | Treat if indicated: PT, OT Rehabilitation Potential: Maximize functional status Activity: Per Therapy Rec Assistance Devices: Walker"
[2022-04-14 12:15] LABS: B. PARAPERTUSSIS- RESP PCR PAN NOT DETECTED; B. PERTUSSIS- RESP PCR PANEL NOT DETECTED; C. PNEUMONIAE- RESP PCR PANEL NOT DETECTED; CORONAVIRUS 229E-RESP PCR NOT DETECTED; CORONAVIRUS HKU1-RESP PCR NOT DETECTED; CORONAVIRUS NL63-RESP PCR NOT DETECTED; CORONAVIRUS OC43-RESP PCR NOT DETECTED; HUMAN METAPNEUMOVIRUS NOT DETECTED; INFLUENZA A- RESP PCR PANEL NOT DETECTED; INFLUENZA B - RESP PCR PANEL NOT DETECTED; M. PNEUMONIAE- RESP PCR PANEL NOT DETECTED; PARAINFLUENZA VIRUS 1 NOT DETECTED; PARAINFLUENZA VIRUS 2 NOT DETECTED; PARAINFLUENZA VIRUS 3 NOT DETECTED; PARAINFLUENZA VIRUS 4 NOT DETECTED; RHINOVIRUS/ENTEROVIRUS NOT DETECTED; RSV- RESP PCR PANEL NOT DETECTED; SARS-CoV-2 -RESP PCR PANEL NOT DETECTED
[2022-04-14 13:45] VITALS: BP 120/55
== END 2022-04-14 14:19 | DRG 871 ==
LOC: EDUNIT# → ED 11:30 → MS2 14:00 → ICU 18:27 → MS2 04-07 14:28
PROVIDERS: ADMIT Internal Medicine; ATTEND Internal Medicine
DX: A41.02 Sepsis due to Methicillin resistant Staphylococcus aureus (principal); J18.9 Pneumonia, unspecified organism; R00.1 Bradycardia, unspecified; J15.212 Pneumonia due to Methicillin resistant Staphylococcus aureus; I21.4 Non-ST elevation (NSTEMI) myocardial infarction; E43 Unspecified severe protein-calorie malnutrition; N17.9 Acute kidney failure, unspecified; I47.2 Ventricular tachycardia; I50.20 Unspecified systolic (congestive) heart failure; R65.20 Severe sepsis without septic shock; I49.5 Sick sinus syndrome; I95.9 Hypotension, unspecified; I48.91 Unspecified atrial fibrillation; E86.0 Dehydration; I10 Essential (primary) hypertension; K21.9 Gastro-esophageal reflux disease without esophagitis; Z98.84 Bariatric surgery status; I48.0 Paroxysmal atrial fibrillation; I25.10 Atherosclerotic heart disease of native coronary artery without angina pectoris; I71.4 Abdominal aortic aneurysm, without rupture; N28.89 Other specified disorders of kidney and ureter; R53.1 Weakness; R63.4 Abnormal weight loss; U09.9 Post COVID-19 condition, unspecified; R63.0 Anorexia; E78.00 Pure hypercholesterolemia, unspecified; Z20.822 Contact with and (suspected) exposure to COVID-19; Z66 Do not resuscitate; E87.6 Hypokalemia; R62.7 Adult failure to thrive; R09.02 Hypoxemia; E83.42 Hypomagnesemia; E83.51 Hypocalcemia; E86.1 Hypovolemia; I45.81 Long QT syndrome; I11.0 Hypertensive heart disease with heart failure; M79.605 Pain in left leg; M79.604 Pain in right leg; D52.0 Dietary folate deficiency anemia; Z68.20 Body mass index [BMI] 20.0-20.9, adult; Z79.82 Long term (current) use of aspirin
CPT/HCPCS: 36415; 71250; 74176; 80048; 80053; 80069; 80202; 81001; 82274; 82310; 82330; 82607; 82746; 83540; 83605; 83735; 84100; 84132; 84145; 84439; 84443; 84466; 84484; 84550; 85025; 87040; 87070; 87150; 87181; 87205; 87633; 87635; 93005; 94640; 94664; 97110; 97116; 97162; 97165; 97530; 97535; 99284; 99285; A9270; C8929; J2916; J3370; J3490; J7040; J7626; Q9957; 82747; 85014; 87086; 93306

== ENCOUNTER 2022-04-17 08:00 | Outpatient (CLI) | payer MEDICARE, OTHER ==
[2022-04-17 20:55] LABS: BASOPHILS % (AUTO) 0.8 %; EOSINOPHILS # (AUTO) 0.2 10^3/uL (0.0-0.7); EOSINOPHILS % (AUTO) 3.1 %; HCT - HEMATOCRIT 27.5 % (42.0-52.0); HGB - HEMOGLOBIN 8.5 g/dL (14.0-18.0); LYMPHOCYTES # (AUTO) 1.3 10^3/uL (1.5-3.5); LYMPHOCYTES % (AUTO) 24.3 %; MEAN CORPUSCULAR HEMOGLOBIN 29.4 pg (27.0-31.0); MEAN CORPUSCULAR HGB CONC 30.9 g/dL (32.0-36.0); MEAN CORPUSCULAR VOLUME 95.2 fL (80.0-94.0); MEAN PLATELET VOLUME 9.6 fL (7.4-11.4); MONOCYTES # (AUTO) 0.5 10^3/uL (0.0-1.0); MONOCYTES % (AUTO) 8.9 %; NEUTROPHILS # (AUTO) 3.2 10^3/uL (1.5-6.6); NEUTROPHILS % (AUTO) 62.3 %; PLT - PLATELET COUNT 440 10^3/uL (130-450); RED BLOOD COUNT 2.89 10^6/uL (4.70-6.10); RED CELL DISTRIBUTION WIDTH 14.9 % (12.0-15.0); WHITE BLOOD COUNT 5.2 x10^3/uL (4.8-10.8)
[2022-04-17 21:20] LABS: ALBUMIN 2.4 g/dL (3.2-5.5); ALBUMIN/GLOBULIN RATIO 0.8 (1.0-2.2); BILIRUBIN,TOTAL 0.2 mg/dL (0.2-1.0); CALCIUM 8.2 mg/dL (8.5-10.3); CREATININE 1.1 mg/dL (0.6-1.2); TOTAL PROTEIN 5.5 g/dL (6.7-8.2)
== END 2022-04-17 23:59 | disposition home or self-care (01) ==
LOC: LAB.R 08:00
PROVIDERS: ATTEND Hospitalist
DX: I10 Essential (primary) hypertension (principal); R53.1 Weakness; R63.0 Anorexia
CPT/HCPCS: 80053; 85025